=== PATIENT | male | born 1950 | race Caucasian/White ===

== ENCOUNTER 2018-12-03 13:00 | Emergency (ER) | payer MEDICARE ==
[~2018-12-03] VITALS: Ht 172.7 cm; Wt 81.7 kg
[~2018-12-03 13:00] MED LIST: Aspir 8181 MG PO; Azor 10-20 MG1 EACH PO; DIGO.05EL PO; DIGO.125 PO; DIGOXIN; LEVE500; LEVE500 PO; Lanoxin250 MCG PO; METO25ER PO; Simvastatin20 MG PO; St. John's Wor150 MG PO; WARF5 PO; WARF7.5 PO
[2018-12-03 13:23] LABS: BASOPHILS ABSOLUTE AUTO 0.12 K/mm3 (0.00-0.23); BASOPHILS PERCENT AUTO 1 % (0-2); EOSINOPHILS ABSOLUTE AUTO 0.16 K/mm3 (0.00-0.68); EOSINOPHILS PERCENT AUTO 1 % (0-6); Hematocrit 52.1 % (37.0-53.0); Hemoglobin 16.7 g/dL (13.5-17.5); IMMATURE GRAN ABSOLUTE AUTO 0.09 K/mm3 (0.00-0.10); IMMATURE GRAN PERCENT AUTO 1 % (0-1); LYMPHOCYTES ABSOLUTE AUTO 3.74 K/mm3 (0.84-5.20); LYMPHOCYTES PERCENT AUTO 27 % (21-46); MONOCYTES ABSOLUTE AUTO 1.04 K/mm3 (0.16-1.47); MONOCYTES PERCENT AUTO 8 % (4-13); Mean Corpuscular HGB 30.3 pg (26.0-34.0); Mean Corpuscular HGB Conc 32.1 g/dL (31.5-36.5); Mean Corpuscular Volume 95 fL (80-100); Mean Platelet Volume 9.8 fL (9.1-12.4); NEUTROPHILS ABSOLUTE AUTO 8.78 K/mm3 (1.96-9.15); NEUTROPHILS PERCENT AUTO 63 % (41-73); Platelet Count 266 K/mm3 (150-400); RDW Coefficient Variation 12.6 % (11.7-14.2); RDW Standard Deviation 44.1 fL (35.1-46.3); Red Blood Cell Count 5.51 M/mm3 (4.30-5.90); White Blood Cell Count 13.93 K/mm3 (4.00-11.30)
[2018-12-03 13:41] LABS: Source, Urine Clean Catch
[2018-12-03 13:49] LABS: Bilirubin, Urine Neg (Neg); Blood, Urine 2+ (Neg); Glucose Qualitative, Urine Neg (Neg); Ketones, Urine Neg (Neg); Leukocyte Esterase, Urine Neg (Neg); Nitrite, Urine Neg (Neg); Protein, Urine 3+ (Neg); Specific Gravity, Urine 1.025 (1.003-1.022); Urobilinogen, Urine NORM (Normal)
[2018-12-03 13:59] LABS: Alanine Aminotransfer (ALT/SGP 33 U/L (12-78); Albumin, Blood 4.1 g/dL (3.4-5.0); Albumin/Globulin Ratio 0.9 (0.8-1.8); Alk Phos 79 U/L (50-136); Anion Gap 19 mmol/L (6-16); Aspartate Aminotrans (AST/SGOT 33 U/L (12-37); Bilirubin, Total 0.4 mg/dL (0.1-1.0); Blood Urea Nitrogen 22 mg/dL (8-24); Bun/Creatinine Ratio 19.1 (12.0-20.0); CO2, Blood 18 mmol/L (21-32); Calcium, Blood 9.7 mg/dL (8.5-10.1); Chloride, Blood 106 mmol/L (98-108); Creatinine, Blood 1.15 mg/dL (0.60-1.20); Ethanol (Alcohol), Blood, Med <3 mg/dL; Globulin, Blood 4.6 g/dL (2.2-4.0); Glomerular Filtration Rate >60 (60-); Glucose, Blood 141 mg/dL (70-99); Potassium, Blood 3.5 mmol/L (3.5-5.5); Sodium, Blood 143 mmol/L (136-145); Total Protein, Blood 8.7 g/dL (6.4-8.2)
[2018-12-03 14:01] LABS: Troponin I 0.128 ng/mL (0.000-0.040)
[2018-12-03 14:07] LABS: Acetaminophen, Random <2.0 ug/mL (10.0-30.0)
[2018-12-03 14:15] LABS: Digoxin (Lanoxin) 0.25 ug/mL (0.80-2.00)
[2018-12-03 14:16] LABS: Appearance, Urine Clear (Clear); Color, Urine Yellow (P-Yellow)
[2018-12-03 14:27] LABS: International Normalized Ratio 1.7; Prothrombin Time Results 17.2 Sec (9.7-11.5)
[2018-12-03 14:31] LABS: Bacteria Few /hpf; Squamous Epithelial Cells Few /hpf (Few); White Blood Cells, Urine 0-2 /hpf (0-5)
[2018-12-03] MEDS ORDERED: LEVE500 PO (16:09)
== END 2018-12-03 15:50 | disposition home or self-care (01) ==
LOC: ER 13:00
PROVIDERS: Emergency Medicine
DX: R56.9 Unspecified convulsions (principal); I48.91 Unspecified atrial fibrillation; Z79.01 Long term (current) use of anticoagulants; Z79.82 Long term (current) use of aspirin; Z79.899 Other long term (current) drug therapy; I10 Essential (primary) hypertension; Z87.891 Personal history of nicotine dependence
CPT/HCPCS: 36415; 70450; 80053; 80162; 81001; 84484; 85025; 85610; 93005; 93010; 96361; 96374; 99285-25; G0480; J1160; J7030

== ENCOUNTER 2019-08-11 20:24 | Emergency (ER) | payer OTHER ==
[~2019-08-11] VITALS: Ht 172.7 cm; Wt 89.8 kg
[2019-08-11 20:56] LABS: BASOPHILS ABSOLUTE AUTO 0.11 K/mm3 (0.00-0.23); BASOPHILS PERCENT AUTO 1 % (0-2); EOSINOPHILS ABSOLUTE AUTO 0.22 K/mm3 (0.00-0.68); EOSINOPHILS PERCENT AUTO 2 % (0-6); Hematocrit 51.9 % (37.0-53.0); Hemoglobin 17.1 g/dL (13.5-17.5); IMMATURE GRAN ABSOLUTE AUTO 0.05 K/mm3 (0.00-0.10); IMMATURE GRAN PERCENT AUTO 0 % (0-1); LYMPHOCYTES PERCENT AUTO 28 % (21-46); MONOCYTES ABSOLUTE AUTO 1.14 K/mm3 (0.16-1.47); MONOCYTES PERCENT AUTO 10 % (4-13); Mean Corpuscular HGB 30.4 pg (26.0-34.0); Mean Corpuscular HGB Conc 32.9 g/dL (31.5-36.5); Mean Corpuscular Volume 92 fL (80-100); Mean Platelet Volume 10.5 fL (9.1-12.4); NEUTROPHILS ABSOLUTE AUTO 6.93 K/mm3 (1.96-9.15); NEUTROPHILS PERCENT AUTO 60 % (41-73); Platelet Count 254 K/mm3 (150-400); RDW Coefficient Variation 12.4 % (11.7-14.2); RDW Standard Deviation 42.4 fL (35.1-46.3); Red Blood Cell Count 5.62 M/mm3 (4.30-5.90); White Blood Cell Count 11.65 K/mm3 (4.00-11.30)
[2019-08-11 21:11] LABS: Alanine Aminotransfer (ALT/SGP 33 U/L (12-78); Albumin/Globulin Ratio 0.9 (0.8-1.8); Alk Phos 91 U/L (50-136); Anion Gap 20 mmol/L (6-16); Aspartate Aminotrans (AST/SGOT 36 U/L (12-37); Bilirubin, Total 0.6 mg/dL (0.1-1.0); Blood Urea Nitrogen 32 mg/dL (8-24); Bun/Creatinine Ratio 26.4 (12.0-20.0); CO2, Blood 15 mmol/L (21-32); Calcium, Blood 9.2 mg/dL (8.5-10.1); Chloride, Blood 101 mmol/L (98-108); Creatinine, Blood 1.21 mg/dL (0.60-1.20); Globulin, Blood 4.5 g/dL (2.2-4.0); Glomerular Filtration Rate >60 (60-); Glucose, Blood 138 mg/dL (70-99); Potassium, Blood 3.4 mmol/L (3.5-5.5); Sodium, Blood 136 mmol/L (136-145); Total Protein, Blood 8.5 g/dL (6.4-8.2); Troponin I 0.067 ng/mL (0.000-0.040)
[2019-08-11 22:06] LABS: Digoxin (Lanoxin) 0.32 ug/mL (0.80-2.00)
[2019-08-11 22:26] LABS: International Normalized Ratio 1.74; Prothrombin Time Results 17.5 Sec (9.7-11.5)
[2019-08-12] MEDS ORDERED: LEVE500 PO (02:30)
[2019-08-12] MEDS ORDERED: ASCO500 PO (06:37)
[2019-08-12] MEDS ORDERED: GENTEAL TEARS 015 ML OP (06:39)
[2019-08-12] MEDS ORDERED: DILT120 PO (06:39)
[2019-08-12] MEDS ORDERED: GINKGO60 MG PO (06:40)
[2019-08-12] MEDS ORDERED: FISH OIL 1,0001 EAC1 PO (06:40)
[2019-08-12] MEDS ORDERED: ALLERGY EYE DRO10 M1 (06:41)
[2019-08-12] MEDS ORDERED: LISI20 PO (06:42)
[2019-08-12] MEDS ORDERED: METO100ER PO (06:44)
[2019-08-12] MEDS ORDERED: CYAN500 PO (06:46)
[2019-08-12] MEDS ORDERED: Vitamin E100 UNIT PO (06:47)
== END 2019-08-11 23:50 | disposition home or self-care (01) ==
LOC: ER 20:24
PROVIDERS: Emergency Medicine
DX: G40.909 Epilepsy, unspecified, not intractable, without status epilepticus (principal); I48.91 Unspecified atrial fibrillation; R79.89 Other specified abnormal findings of blood chemistry; I11.0 Hypertensive heart disease with heart failure; I50.9 Heart failure, unspecified; Z79.82 Long term (current) use of aspirin; Z79.01 Long term (current) use of anticoagulants; Z79.899 Other long term (current) drug therapy; Z86.73 Personal history of transient ischemic attack (TIA), and cerebral infarction without residual deficits; Z87.891 Personal history of nicotine dependence
CPT/HCPCS: 71045; 80053; 80162; 84484; 85025; 85610; 93005; 93010; 96374; 99285-25; J7030

== ENCOUNTER 2019-08-12 02:18 | Inpatient (IN) | payer OTHER, MEDICARE ==
[~2019-08-12] VITALS: Ht 172.7 cm; Wt 87.4 kg
[2019-08-12] MEDS ORDERED: LEVE500 PO (02:30)
[2019-08-12 03:02] LABS: BASOPHILS ABSOLUTE AUTO 0.05 K/mm3 (0.00-0.23); BASOPHILS PERCENT AUTO 1 % (0-2); EOSINOPHILS PERCENT AUTO 1 % (0-6); Hematocrit 45.2 % (37.0-53.0); Hemoglobin 15.2 g/dL (13.5-17.5); IMMATURE GRAN ABSOLUTE AUTO 0.03 K/mm3 (0.00-0.10); IMMATURE GRAN PERCENT AUTO 0 % (0-1); LYMPHOCYTES PERCENT AUTO 13 % (21-46); MONOCYTES ABSOLUTE AUTO 1.15 K/mm3 (0.16-1.47); MONOCYTES PERCENT AUTO 11 % (4-13); Mean Corpuscular HGB 30.2 pg (26.0-34.0); Mean Corpuscular HGB Conc 33.6 g/dL (31.5-36.5); Mean Corpuscular Volume 90 fL (80-100); Mean Platelet Volume 9.9 fL (9.1-12.4); NEUTROPHILS PERCENT AUTO 75 % (41-73); Platelet Count 221 K/mm3 (150-400); RDW Coefficient Variation 12.4 % (11.7-14.2); RDW Standard Deviation 40.9 fL (35.1-46.3); Red Blood Cell Count 5.03 M/mm3 (4.30-5.90); White Blood Cell Count 10.93 K/mm3 (4.00-11.30)
[2019-08-12 03:21] LABS: Magnesium, Blood 2.3 mg/dL (1.6-2.4); Troponin I 0.162 ng/mL (0.000-0.040)
[2019-08-12 03:22] LABS: Anion Gap 8 mmol/L (6-16); Blood Urea Nitrogen 25 mg/dL (8-24); Bun/Creatinine Ratio 25.6 (12.0-20.0); CO2, Blood 25 mmol/L (21-32); Calcium, Blood 8.5 mg/dL (8.5-10.1); Chloride, Blood 106 mmol/L (98-108); Creatinine, Blood 0.98 mg/dL (0.60-1.20); Glomerular Filtration Rate >60 (60-); Glucose, Blood 115 mg/dL (70-99); Potassium, Blood 3.8 mmol/L (3.5-5.5); Sodium, Blood 139 mmol/L (136-145)
[2019-08-12] MEDS ORDERED: ASCO500 PO (06:37)
[2019-08-12] MEDS ORDERED: DILT120 PO (06:39)
[2019-08-12] MEDS ORDERED: GENTEAL TEARS 015 ML OP (06:39)
[2019-08-12] MEDS ORDERED: FISH OIL 1,0001 EAC1 PO (06:40)
[2019-08-12] MEDS ORDERED: GINKGO60 MG PO (06:40)
[2019-08-12] MEDS ORDERED: ALLERGY EYE DRO10 M1 (06:41)
[2019-08-12] MEDS ORDERED: LISI20 PO (06:42)
[2019-08-12] MEDS ORDERED: METO100ER PO (06:44)
[2019-08-12] MEDS ORDERED: CYAN500 PO (06:46)
[2019-08-12] MEDS ORDERED: Vitamin E100 UNIT PO (06:47)
--- NOTE | 2019-08-12 06:51 | NUR ---
0600 REPORT RECEIVED FROM [facility] FROM ER; PT ALERT AND ORIENTED X 4; SEIZURE PADS APPLIED TO BED FOR SAFETY; TELEMETRY REFLECTS A/FIB WITH HEART RATE 90; DENIES CHEST, SOB OR NAUSEA, CALL LIGHT AT SIDE WITH BED LOW POSITION; SCDS APPLIED.
--- NOTE | 2019-08-12 07:30 | NUR ---
ASSUMED CARE OF PT. IN NO ACUTE DISTRESS AT THIS TIME. WILL CONTINUE TO MONITOR. CALL LIGHT AND POSSESSIONS IN REACH
--- NOTE | 2019-08-12 07:33 | NUR ---
ASSUMED CARE: PT RESTING QUIETLY. SEIZURE PADS IN PLACE. HR CURRENTLY AFIB IN 90S. NO FURTHER NEEDS OR CONCERNS AT THIS TIME.
[2019-08-12 10:25] LABS: International Normalized Ratio 1.45; Prothrombin Time Results 14.9 Sec (9.7-11.5)
--- NOTE | 2019-08-12 11:48 | NUR ---
DR AVALOS AWARE THAT PT HAD A 13 BEAT RUN OF VTACH THIS AM BUT WAS ASYMPTOMATIC. ALSO HAVING ELEVATED TROPONINS. ORDER FOR CARDIOLOGY CONSULT, DR ORTIZ AWARE
--- NOTE | 2019-08-12 12:10 | NUR ---
DR ORTIZ CAME TO SEE PT, AWARE THAT HE ATE LUNCH. DR STATES TO HOLD HEPARIN FOR NOW, DR AWARE.
--- NOTE | 2019-08-12 15:30 | NUR ---
PT TAKEN TO CAREER AND GUIDANCE COUNSELOR AT THIS TIME. ESCORTED VIA BED BY HEART CENTER STAFF.
--- NOTE | 2019-08-12 16:12 | NUR ---
Echocardiogram completed.
--- NOTE | 2019-08-12 17:10 | NUR ---
PT RETURNED FROM APARTMENT MAINTENANCE WITH RIGHT TR BAND IN PLACE, NO SIGNS OF BLEEDING OR HEMATOMA. ARM BOARD WELL. VSS AT THIS TIME
--- NOTE | 2019-08-12 18:26 | NUR ---
[facility] HERE TO COLLECT PT. TRANSPORTED VIA GURNEY. TR BAND IN PLACE STILL INFLATED. CALL TO TRISTIN AT [facility] FOR REPORT. PT STATES HE HAS BEEN CONTACTING FAMILY AND FRIENDS TO UPDATE THEM. NO FURTHER NEEDS OR CONCERNS
== END 2019-08-12 19:38 | disposition short-term general hospital (02) | DRG 281 ==
LOC: ER 02:18 → PCU 02:19
PROVIDERS: Emergency Medicine; ADMIT Hospitalist
PROC: 4A023N7 Measurement of Cardiac Sampling and Pressure, Left Heart, Percutaneous Approach (ICD-10-PCS; principal; 2019-08-12)
PROC: B211YZZ Fluoroscopy of Multiple Coronary Arteries using Other Contrast (ICD-10-PCS; 2019-08-12)
DX: I21.4 Non-ST elevation (NSTEMI) myocardial infarction (principal); I48.20 Chronic atrial fibrillation, unspecified; I50.20 Unspecified systolic (congestive) heart failure; I25.10 Atherosclerotic heart disease of native coronary artery without angina pectoris; I11.0 Hypertensive heart disease with heart failure; R56.9 Unspecified convulsions; Z79.01 Long term (current) use of anticoagulants
CPT/HCPCS: 36415; 80048; 83735; 84484; 85025; 85347; 85610; 85730; 93005; 93010; 93306; 93571; 96361; 96374; 99152; 99153; 99285-25; C1769; C1887; C1894; G0378; J1644; J2250; J3010; J7030; J7040; Q9967

== ENCOUNTER 2019-10-04 15:40 | Emergency (ER) | payer OTHER ==
[~2019-10-04] VITALS: Ht 172.7 cm; Wt 83.9 kg
[~2019-10-04 15:40] MED LIST changes: +CYAN500 PO; +GENTEAL TEARS 015 ML OP; +METO100ER PO; -WARF5 PO
[2019-10-04] MEDS ORDERED: ACET325 PO (16:06)
[2019-10-04] MEDS ORDERED: Aspir 8181 MG PO (16:07)
[2019-10-04] MEDS ORDERED: Amiodarone HCl200 MG PO (16:07)
[2019-10-04] MEDS ORDERED: C Complex1000 MG PO (16:07)
[2019-10-04] MEDS ORDERED: DOCU100 PO (16:08)
[2019-10-04] MEDS ORDERED: DILT120ERA PO (16:08)
[2019-10-04] MEDS ORDERED: WARF2.5 (16:09)
[2019-10-04] MEDS ORDERED: WARF3 PO (16:09)
[2019-10-04] MEDS ORDERED: METO50ER PO (16:10)
[2019-10-04] MEDS ORDERED: LANOXIN125 MCG PO (16:10)
[2019-10-04] MEDS ORDERED: LEVE500 PO ×2 (16:10→17:16)
[2019-10-04] MEDS ORDERED: FISH OIL 500 M1 EAC3 PO (16:10)
[2019-10-04] MEDS ORDERED: BISA10S PR (16:10)
[2019-10-04] MEDS ORDERED: MILK OF MA400 MG/5 M PO (16:11)
[2019-10-04] MEDS ORDERED: Refresh Eye Dr1 EACH OP (16:11)
[2019-10-04] MEDS ORDERED: TOCO1000 PO (16:11)
[2019-10-04] MEDS ORDERED: ZADITOR5 ML (16:12)
[2019-10-04 17:00] LABS: International Normalized Ratio 3.15; Prothrombin Time Results 31.6 Sec (9.7-11.5)
[2019-10-04] MEDS ORDERED: WARF5 PO (17:15)
[2019-10-04] MEDS ORDERED: METO100ER PO (17:15)
[2019-10-04] MEDS ORDERED: ASCO500 PO (17:16)
[2019-10-04] MEDS ORDERED: DILT120 PO (17:16)
[2019-10-04] MEDS ORDERED: ALLERGY EYE DRO10 M1 BOTHEYES (17:17)
[2019-10-04] MEDS ORDERED: FISH OIL 1,0001 EAC1 PO (17:17)
[2019-10-04] MEDS ORDERED: LISI20 PO (17:17)
[2019-10-04] MEDS ORDERED: GINKGO60 MG PO (17:17)
[2019-10-04] MEDS ORDERED: VITAMIN E100 UNI1 PO (17:19)
[2019-10-04] MEDS ORDERED: B Complex-Foli1 EACH PO (17:19)
[2019-10-04] MEDS ORDERED: MAGNESIUM OXID500 MG PO (17:20)
[2019-10-04] MEDS ORDERED: MELATONIN5 M1 PO (17:21)
== END 2019-10-04 17:24 | disposition home or self-care (01) ==
LOC: ER 15:40
PROVIDERS: Emergency Medicine
DX: I48.20 Chronic atrial fibrillation, unspecified (principal); G40.909 Epilepsy, unspecified, not intractable, without status epilepticus; I10 Essential (primary) hypertension; Z86.73 Personal history of transient ischemic attack (TIA), and cerebral infarction without residual deficits; I25.10 Atherosclerotic heart disease of native coronary artery without angina pectoris; Z79.01 Long term (current) use of anticoagulants
CPT/HCPCS: 85610; 93005; 93010; 99284-25

== ENCOUNTER 2020-11-19 12:18 | Inpatient (IN) | payer OTHER, MEDICARE ==
[~2020-11-19] VITALS: Ht 172.7 cm; Wt 83.9 kg
[~2020-11-19 12:18] MED LIST changes: +ACET325 PO; +ASCO500 PO; +Amiodarone HCl200 MG PO; +B Complex-Foli1 EACH PO; +BISA10S PR; +C Complex1000 MG PO; +DILT120ERA PO; +DOCU100 PO; +FISH OIL 1,0001 EAC1 PO; +FISH OIL 500 M1 EAC3 PO; +GINKGO60 MG PO; +LANOXIN125 MCG PO; +LISI20 PO; +MAGNESIUM OXID500 MG PO; +MELATONIN5 M1 PO; +METO50ER PO; +MILK OF MA400 MG/5 M PO; +Refresh Eye Dr1 EACH OP; +TOCO1000 PO; +WARF2.5; +WARF3 PO; +ZADITOR5 ML
[2020-11-19 12:42] LABS: BASOPHILS ABSOLUTE AUTO 0.08 K/mm3 (0.00-0.23); BASOPHILS PERCENT AUTO 1 % (0-2); EOSINOPHILS ABSOLUTE AUTO 0.18 K/mm3 (0.00-0.68); EOSINOPHILS PERCENT AUTO 2 % (0-6); Hematocrit 45.7 % (37.0-53.0); Hemoglobin 15.3 g/dL (13.5-17.5); IMMATURE GRAN ABSOLUTE AUTO 0.03 K/mm3 (0.00-0.10); IMMATURE GRAN PERCENT AUTO 0 % (0-1); LYMPHOCYTES ABSOLUTE AUTO 1.72 K/mm3 (0.84-5.20); LYMPHOCYTES PERCENT AUTO 17 % (21-46); MONOCYTES ABSOLUTE AUTO 0.93 K/mm3 (0.16-1.47); MONOCYTES PERCENT AUTO 9 % (4-13); Mean Corpuscular HGB Conc 33.5 g/dL (31.5-36.5); Mean Corpuscular Volume 93 fL (80-100); Mean Platelet Volume 10.8 fL (9.1-12.4); NEUTROPHILS ABSOLUTE AUTO 7.45 K/mm3 (1.96-9.15); NEUTROPHILS PERCENT AUTO 72 % (41-73); Platelet Count 205 K/mm3 (150-400); RDW Coefficient Variation 12.9 % (11.7-14.2); RDW Standard Deviation 43.4 fL (35.1-46.3); Red Blood Cell Count 4.93 M/mm3 (4.30-5.90); White Blood Cell Count 10.39 K/mm3 (4.00-11.30)
[2020-11-19 12:45] LABS: Calcium, Ionized (POC) 1.16 mmol/L (1.10-1.46); Chloride (POC) 103 mmol/L (98-108); Creatinine (POC) 0.9 mg/dL (0.8-1.3); Glucose (ISTAT POC) 159 mg/dL (70-99); Hemoglobin (POC) 15.6 g/dL (13.5-17.5); Potassium (POC) 4.5 mmol/L (3.5-5.5); Sodium (POC) 140 mmol/L (135-148); Total CO2 (POC) 28 mmol/L (21-32)
[2020-11-19 13:23] LABS: Alanine Aminotransfer (ALT/SGP 28 U/L (12-78); Albumin, Blood 3.5 g/dL (3.4-5.0); Albumin/Globulin Ratio 0.9 (0.8-1.8); Alk Phos 86 U/L (50-136); Anion Gap 5 mmol/L (6-16); Aspartate Aminotrans (AST/SGOT 30 U/L (12-37); Bilirubin, Total 0.7 mg/dL (0.1-1.0); Blood Urea Nitrogen 23 mg/dL (8-24); Bun/Creatinine Ratio 26.4 (12.0-20.0); CO2, Blood 27 mmol/L (21-32); Calcium, Blood 9.1 mg/dL (8.5-10.1); Chloride, Blood 108 mmol/L (98-108); Creatinine, Blood 0.87 mg/dL (0.60-1.20); Digoxin (Lanoxin) 0.62 ug/mL (0.80-2.00); Globulin, Blood 4.1 g/dL (2.2-4.0); Glomerular Filtration Rate >60 (60-); Glucose, Blood 152 mg/dL (70-99); Potassium, Blood 4.4 mmol/L (3.5-5.5); Sodium, Blood 140 mmol/L (136-145); Total Protein, Blood 7.6 g/dL (6.4-8.2)
[2020-11-19] MEDS ORDERED: ALBU90OI INH (13:49)
[2020-11-19] MEDS ORDERED: LANOXIN250 MCG PO (13:51)
[2020-11-19] MEDS ORDERED: ATHLETE'S FOO35.4 GM TOP (13:51)
[2020-11-19] MEDS ORDERED: DILT180 PO (13:52)
[2020-11-19] MEDS ORDERED: LEVE500 PO (13:53)
[2020-11-19] MEDS ORDERED: METO100ER PO (13:53)
[2020-11-19] MEDS ORDERED: ZADITOR5 M1 BOTHEYES (13:53)
[2020-11-19] MEDS ORDERED: SILDENAFIL CITR50 MG PO (13:55)
[2020-11-19] MEDS ORDERED: VITAMIN E100 UNI1 PO (13:55)
[2020-11-19] MEDS ORDERED: WARF5 PO (13:56)
[2020-11-19 16:46] LABS: PCO2 Arterial 43.6 mmHg (35-45); PO2 Arterial 252 mmHg (80-100); pH Blood Arterial 7.37 (7.35-7.45)
--- NOTE | 2020-11-19 16:46 | NUR ---
Echocardiogram completed.
[2020-11-19 17:06] LABS: Source, Urine Catheter
[2020-11-19 17:12] LABS: Bilirubin, Urine Neg (Neg); Blood, Urine 4+ (Neg); Glucose Qualitative, Urine Neg (Neg); Ketones, Urine Neg (Neg); Leukocyte Esterase, Urine Neg (Neg); Nitrite, Urine Neg (Neg); Protein, Urine 3+ (Neg); Specific Gravity, Urine 1.005 (1.003-1.022); Urobilinogen, Urine NORM (Normal)
[2020-11-19 17:26] LABS: Appearance, Urine Hazy (Clear); Color, Urine Pale Yellow (P-Yellow)
--- NOTE | 2020-11-19 17:27 | NUR ---
SUMMARY: PT ARRIVES FROM BLENDING SUPERVISOR @ 1528. RIGHT GROIN SITE FRESH, TEMPORARY PACER LINE PRESENT. PT OPENS EYES FOR NAME. REPORT FROM ABUNDIO AND JAYESH FROM BLENDING SUPERVISOR. PULSES PALPABLE ON RIGHT FOOT. LAB IN FOR BLOOD DRAW, DAVIDE MONTELONGO IN FOR ECHO. ATTEMPTS TO FILL OUT ADMISSION INFORMATION, PT NOT ANSWERING QUESTIONS, PT NOT RESPONDING TO VOICE, TOUCH. CARDIAC NURSE SPECIALIST NOTIFIED. NARCAN AND ROMAZICON GIVEN FOR UNRESPONSIVENESS. PT'S GROIN CHECKED AND NOTED TO BE OOZING SIGNIFICANTLY. PRESSURE HELD. PT BEGINS TO AROUSE. COMPLAINS THAT HE CANNOT BREATHE. ATTEMPT TO CALL , HE IS IN PROCEDURE. HOSPITALIST CALLED. PT CONTINUES IN AND OUT OF ALERTNESS, PRESSURE CONTINUED TO BE HELD. DR. ROBLES AND DR. ROBLES HERE, THEY ASSESS AND ORDER LASIX 40MG GIVEN AND MCBRIDE CATHETER PLACED. RESTRAINTS PLACED PT TRYING TO MOVE RIGHT LEG AND PUSH STAFF OFF TRYING TO AWAKEN. GROIN PRESSURE CONTINUES SIGHT IS FULLY COVERED IN RED. PULSES GOOD. ABG RESULTS GOOD. DR. ROBLES SAYS NO ADDITIONAL OXYGEN NEEDED FROM THE NRB @ 10L. PT STARTING TO MAKE MORE SENSE. 1700 THE COMPLETE THEIR CONSULT. NO FURTHER ORDERS. UPDATE GIVEN TO ARISTEO IN BLENDING SUPERVISOR TO COMMUNICATE TO . PT DENIES ANY FURTHER SHORTNESS OF BREATH, NEARLY 1000CC OUT WITH MCBRIDE.
[2020-11-19 17:29] LABS: Amorphous Mod (0-Heavy); Bacteria Mod /hpf; Oval Fat Bodies Rare /lpf; Squamous Epithelial Cells Not Seen /hpf (Few); Transitional Epithelial Cells Few /hpf (0-Rare); White Blood Cells, Urine 0-2 /hpf (0-5)
--- NOTE | 2020-11-19 19:00 | NUR ---
ASSUMED CARE OF PT, BEDSIDE REPORT RECEIVED. REVIEWED RIGHT GROIN SITE WITH OFFGOING RN AND FEMSTOP PRESSURE DECREASED TO 80 PER ORDERS, WILL CONT TO MONITOR SITE FOR SIGNS OF BLEEDING/HEMATOMA FORMATION. PT IS PLEASANTLY CONFUSED AT THIS TIME, IS ABLE TO STATE THAT HE IS IN [facility] HOWEVER VERBALIZES THAT HE SEES A DAVID OUTSIDE OF HIS ROOM WINDOW, THERE IS NO DAVID OBSERVED IN COURTYARD BY THIS RN, HE ALSO BEGINS CUSSING STATING "SHIT, WHERE IS IT" AND THROWING COVERS AROUND WITH HIS RIGHT HAND, WHEN ASKED WHAT HE IS LOOKING FOR HE STATES THAT HE CAN'T FIND HIS CELL PHONE, CELL PHONE IS NOTED HELD IN LEFT HAND. HE ATTEMPTS TO SIT UP FREQUENTLY WELL MOVE RIGHT LEG OUT OF BED AND STATES THAT HE NEEDS TO GET UP AND URINATE, REMINDED PT ABOUT MCBRIDE CATHETER AND HE CONTINUES TO STATE THAT HE IS GOING TO "PEE THE BED" HEART RATE NOTED AFIB ON MONITOR, RATE 80S AT THIS TIME, OCCASIONAL PACED BEAT IS NOTED, TRANSVENOUS PACER REVIEWED WITH OFFGOING RN SETTINGS ARE RATE 40, OUTPUT 4.0, SENSE 3.0, DRESSING IS REVIEWED WITH OFFGOING RN, UNABLE TO READ PACEMAKER MEASUREMENTS SECONDARY TO FEMSTOP IN PLACE OVER INSERTION SITE. SATS ARE MAINTAINING WITH OXYGEN OFF PT AND COILED IN BEDDING, JIM HILTON, PT DENIES SOB/DYSPNEA, LUNGS WITH EXP WHEEZE MID RIGHT AND DIM BASES BILAT, AUDIBLE EXPIRATORY WHEEZE. PT STATES THAT HE DOES HAVE SOME MILD CHEST PAIN AND STATES THAT IT HAS BEEN PRESENT SINCE HIS BYPASS SURGERY 3 YEARS AGO. STATES THAT THIS PAIN IS LESS THAN HIS NORMAL BASELINE BY "QUITE A BIT" HOWEVER DOES NOT PROVIDE NUMERIC PAIN SCORE.
[2020-11-19 19:22] LABS: U Amphetamine Screen Not Detected; U Barbituate Screen Not Detected; U Benzodiazapine Screen Not Detected; U Buprenorphine Screen Not Detected; U Cannabinoids Screen Not Detected; U Cocaine Screen Not Detected; U Methadone Screen Not Detected; U Methamphetamine Screen Not Detected; U Opiates Screen Not Detected; U Oxycodone Screen Not Detected; U Phencyclidine Screen Not Detected; U Propoxyphene Screen Not Detected
--- NOTE | 2020-11-20 05:49 | NUR ---
PT WAS AGITATED AND RESTLESS AT THE BEGINNING OF THIS SHIFT, NOTED TO KICK AGAINST RIGHT ANKLE RESTRAINT AND ATTEMPT TO CLIMB OUT OF BED STATING HE NEEDS TO USE THE URINAL AFTER IT WAS EXPLAINED TO THE PT THAT HE HAS A CATHETER MULTIPLE TIMES, HE WOULD REQUEST THIS RN SHOW HIM THE MCBRIDE DRAINAGE BAG IN ORDER TO PROVE THAT CATHETER WAS PRESENT. HE VERBALIZED VISUAL HALLUCINATIONS MULTIPLE TIMES EARLY IN THIS SHIFT. HE WAS DIFFICULT TO REDIRECT AND WAS NONCOMPLIANT WITH RLE ACTIVITY RESTRICTIONS. DISCUSSED WITH HOSPITALIST WELL NEED FOR ROMAZICON AND NARCAN ON DAY SHIFT, ORDERS FOR PRECEDEX, INITIATED AT 0.2 MCG/KG/HR AND TITRATED UP EVERY 30 MINUTES TO MAX OF 0.6 MCG/KG/HR, THIS HAS SINCE BEEN TITRATED DOWN TO 0.3 MCG/KG/HR AND PT IS EASILY AROUSABLE TO VERBAL STIMULI AND REDIRECTABLE AT THIS TIME. TRANSVENOUS PACEMAKER REMAINS IN PLACE WITHOUT CHANGES TO SETTINGS, RARE PACED BEATS AT MIDNOC ASSESSMENT AND CONTINUE TO DECREASE IN FREQUENCY, PRESSURES MAINTAINED THROUGHOUT NOC. RIGHT GROIN SITE CONTINUES STABLE, PRESSURE RELEASED FROM FEMSTOP PER ORDERS AND COMPLETELY DEFLATED AT 2230, SMALL AMOUNT OF BRUISING IS VISIBLE BUT SITE REMAINS SOFT, NO ACTIVE BLEEDING. SPO2 PROBE TO TOES OF RIGHT FEET THROUGHOUT NOC WITH GOOD WAVEFORM, PULSES FULL.
[2020-11-20 06:45] LABS: BASOPHILS ABSOLUTE AUTO 0.06 K/mm3 (0.00-0.23); BASOPHILS PERCENT AUTO 1 % (0-2); EOSINOPHILS ABSOLUTE AUTO 0.18 K/mm3 (0.00-0.68); EOSINOPHILS PERCENT AUTO 2 % (0-6); Hematocrit 39.1 % (37.0-53.0); Hemoglobin 12.9 g/dL (13.5-17.5); IMMATURE GRAN ABSOLUTE AUTO 0.03 K/mm3 (0.00-0.10); IMMATURE GRAN PERCENT AUTO 0 % (0-1); LYMPHOCYTES ABSOLUTE AUTO 1.15 K/mm3 (0.84-5.20); LYMPHOCYTES PERCENT AUTO 13 % (21-46); MONOCYTES ABSOLUTE AUTO 0.98 K/mm3 (0.16-1.47); MONOCYTES PERCENT AUTO 11 % (4-13); Mean Corpuscular HGB 30.5 pg (26.0-34.0); Mean Corpuscular Volume 92 fL (80-100); Mean Platelet Volume 10.5 fL (9.1-12.4); NEUTROPHILS ABSOLUTE AUTO 6.78 K/mm3 (1.96-9.15); NEUTROPHILS PERCENT AUTO 74 % (41-73); Platelet Count 159 K/mm3 (150-400); RDW Coefficient Variation 12.7 % (11.7-14.2); RDW Standard Deviation 43.6 fL (35.1-46.3); Red Blood Cell Count 4.23 M/mm3 (4.30-5.90); White Blood Cell Count 9.18 K/mm3 (4.00-11.30)
[2020-11-20 07:06] LABS: Anion Gap 3 mmol/L (6-16); Blood Urea Nitrogen 22 mg/dL (8-24); CHOL/HDL RATIO 3.4; CO2, Blood 31 mmol/L (21-32); Calcium, Blood 8.7 mg/dL (8.5-10.1); Chloride, Blood 107 mmol/L (98-108); Cholesterol 124 mg/dL (50-200); Glomerular Filtration Rate >60 (60-); Glucose, Blood 97 mg/dL (70-99); HDL Cholesterol 37 mg/dL (>39); LDL/HDL RATIO 1.7; Low Density Lipoprotein Chol 62 mg/dL (0-110); Potassium, Blood 3.8 mmol/L (3.5-5.5); Sodium, Blood 141 mmol/L (136-145); Triglycerides 124 mg/dL (30-160); Very Low Density Lipoprot Chol 24 mg/dL (6-32)
--- NOTE | 2020-11-20 07:30 | NUR ---
ASSUMED CARE BEDSIDE REPORT RECIEVED. PT IS INITIALLY RESTING QUIETLY. PT AWAKENS TO VERBAL STIMULI. PT IS ALERT AND ORIENTED WITH PERIODS OF CONFUSION/FORGETFULNESS. PT FOLLOWS SIMPLE COMMANDS. PT DENIES PAIN AT THIS TIME. VITAL SIGNS STABLE. PT ON 3L O2 NC. TRANSVENOUS PACER IN PLACE TO RIGHT FEMORAL SITE. INSERTED AT 75 CM. SET AT 40 BPM, 4.0 MA. PT HR 70-80'S, AFIB. MCBRIDE IN PLACE WITH ORANGE URINE OUTPUT NOTED. RESTRAINT TO RIGHT ANKLE IN PLACE. WILL CONTINUE TO MONITOR.
--- NOTE | 2020-11-20 08:05 | NUR ---
TV PACER REMOVAL DR SALAS AT BEDSIDE TO REMOVE TRANSVENOUS PACER. PACER TO RIGHT FEMORAL SITE SET AT 40 BPM, 4.0 MA. SITE WITH OOZING AND SMALL BRUISE NOTED PRIOR TO REMOVAL. DR SALAS REMOVED PACER AND SHEATH AT 0755. MANUAL PRESSURE HELD 10 FOR 10 MINUTES. OPSITE DRESSING PLACED. WILL CONTINUE TO MONITOR.
--- NOTE | 2020-11-20 15:13 | NUR ---
BLOODY NOSE PT WITH BLOODY NOSE SINCE 1300. PT INSTRUCTED TO MINIMIZE TALKING AND TO KEEP PLUG IN NOSE. PT TALKING ON THE PHONE AND TO STAFF CONTINUALLY AND REMOVES TISSUE PLUGS IN NOSE. PT REFUSES THIS RN AND SHOE REPAIRER TO CHANGE GOWN WITH BLOOD ON IT. WILL CONTINUE TO MONITOR.
--- NOTE | 2020-11-20 16:43 | NUR ---
SHIFT SUMMARY NO ACUTE CHANGES THIS SHIFT. PT HAS REMAINED STABLE S/P TRANSVENOUS PACER REMOVAL THIS AM. RIGHT FEMORAL SITE REMAINS STABLE WITH DRESSING C/D/I. BRUISING TO SITE UNCHANGED SINCE THIS AM. VITAL SIGNS STABLE. HR REMAINS AFIB 80-100'S, BP STABLE. PT ON ROOM AIR. PT WITH NOSEBLEED SLOWLY IMPROVING. IV'S SALINE LOCKED. PT UP TO CHAIR FOR LUNCH WITH 1 PERSON ASSIST. PT TOLERATING PO FOOD AND FLUIDS WELL. MCBRIDE REMAINS IN PLACE WITH DARK YELLOW URINE OUTPUT NOTED. PT REMAINS ALERT AND ORIENTED, BUT SPEECH IS NONSENSICAL AT TIMES. WILL CONTINUE TO MONITOR AND REPORT OFF TO ONCOMING RN.
--- NOTE | 2020-11-20 18:35 | NUR ---
Mr. Winchester was talkative and pleasant with periods of confusion. He chatted happily with me about his service and family. He reports hope for recovery and denied concerns. He allowed me to pray for healing. He lost his 10 years ago to brain tumor. He admits he still misses her. He has 2 adult children--a son and dtr. I will remain available.
--- NOTE | 2020-11-20 19:41 | NUR ---
ASSUMED CARE OF PT, BEDSIDE REPORT RECEIVED. RIGHT GROIN ACCESS SITE REVIEWED WITH OFFGOING RN, NO HEMATOMA, SMALL AMOUNT OF BRUISING REMAINS WITHIN LINES OF DEMARKATION FROM PREVIOUS SHIFT. DRESSING IS CDI. PT IS ALERT AND ORIENTED AND MARKEDLY CONVERSATIONAL. EPISTAXIS IS ONGOING PROBLEM TODAY AND PT CONTINUES WITH RAPID SPEACH AND MOVEMENT, NASAL CLAMP WAS PLACED BY PT PRIOR TO RNS ARRIVING AT BEDSIDE FOR REPORT, CLAMP WAS PLACED TO SOFT TISSUE OF NARES, PT INSTRUCTED THAT CLAMP IS PROPERLY APPLIED TO BRIDGE OF NOSE RATHER THAN SOFT TISSUE, UNDERSTANDING IS VERBALIZED AT THIS TIME, WILL CONT TO MONITOR BLEEDING. AFIB ON MONITOR, RATE IS NOTED 100-150 THROUGHOUT ASSESSMENT PRESSURES MAINTAINING, SKIN REMAINS PWD, BRISK CAP REFILL, NO EDEMA IS NOTED AT THIS TIME. SATS ARE MAINTAINING ON ROOM AIR WITHOUT VISIBLE INCREASED WORK OF BREATHING, PT SPEAKING IN LENGTHY SENTENCES, DENIES SOB/DYSPNEA AT THIS TIME. CALL PLACED TO CARDIOLOGY REGARDING RATE CONTROL, AWAITING RETURN CALL AT THIS TIME.
[2020-11-21 06:49] LABS: BASOPHILS ABSOLUTE AUTO 0.06 K/mm3 (0.00-0.23); BASOPHILS PERCENT AUTO 1 % (0-2); EOSINOPHILS ABSOLUTE AUTO 0.15 K/mm3 (0.00-0.68); EOSINOPHILS PERCENT AUTO 2 % (0-6); Hematocrit 40.5 % (37.0-53.0); Hemoglobin 13.4 g/dL (13.5-17.5); IMMATURE GRAN ABSOLUTE AUTO 0.02 K/mm3 (0.00-0.10); IMMATURE GRAN PERCENT AUTO 0 % (0-1); LYMPHOCYTES ABSOLUTE AUTO 1.23 K/mm3 (0.84-5.20); LYMPHOCYTES PERCENT AUTO 13 % (21-46); MONOCYTES ABSOLUTE AUTO 1.11 K/mm3 (0.16-1.47); MONOCYTES PERCENT AUTO 12 % (4-13); Mean Corpuscular HGB 30.5 pg (26.0-34.0); Mean Corpuscular HGB Conc 33.1 g/dL (31.5-36.5); Mean Corpuscular Volume 92 fL (80-100); Mean Platelet Volume 10.4 fL (9.1-12.4); NEUTROPHILS PERCENT AUTO 73 % (41-73); Platelet Count 169 K/mm3 (150-400); RDW Coefficient Variation 12.8 % (11.7-14.2); RDW Standard Deviation 43.4 fL (35.1-46.3); White Blood Cell Count 9.37 K/mm3 (4.00-11.30)
[2020-11-21 07:01] LABS: Anion Gap 4 mmol/L (6-16); Blood Urea Nitrogen 22 mg/dL (8-24); Bun/Creatinine Ratio 23.7 (12.0-20.0); CO2, Blood 29 mmol/L (21-32); Calcium, Blood 8.9 mg/dL (8.5-10.1); Chloride, Blood 107 mmol/L (98-108); Creatinine, Blood 0.93 mg/dL (0.60-1.20); Glomerular Filtration Rate >60 (60-); Glucose, Blood 96 mg/dL (70-99); Sodium, Blood 140 mmol/L (136-145)
--- NOTE | 2020-11-21 07:19 | NUR ---
PT RESTS QUIETLY THROUGHOUT SHIFT. RATE IMPROVED HOWEVER REMAINS 100-110S THIS AM, REVIEWED WITH DR DANIEL AT 0630 THIS AM, WILL ORDER LOW DOSE BETA CHELITA. RIGHT GROIN ACCESS SITE CONTINUES STABLE. PT REMAINS MARKEDLY CONVERSATIONAL THROUGHOUT NOC. NO FUTHER EPISTAXIS AFTER 2100 THIS SHIFT. OTHERWISE NO ACUTE CHANGES.
--- NOTE | 2020-11-21 07:47 | NUR ---
Assumed care of pt at 0700. Bedside report received from Demi STAUFFER. Pt A&O x 4. Answers questions. Follows commands. Verbalizes needs. Pleasant and cooperative with care. Talkative. Pt on room air. Atrial fibrillation per monitor. Rate 115-125. Pt brushed own teeth. Pt continues to talk on phone and nose bleed restarted at subtle trickle that pt did not notice, staff noticed and instructed pt to minimize talking.
--- NOTE | 2020-11-21 10:00 | NUR ---
Pt had nose bleed that started as a mild trickle and progressed to become a continuous stream of blood. AM meds held until clarification received from provider due to bleeding. Dr Coello at bedside placed 5.5 cm rhino rocket that helped with bleeding for approx 10 minutes and then pt started to bleed around it. Call placed to Dr Ang to notify on situation. Provider at bedside, stated he will DC xarelto, brilinta, and ASA. Plan to start plavix when nosebleed resolves.
--- NOTE | 2020-11-21 10:30 | NUR ---
Dr Harper from emergency department in to see patient regarding persistent nosebleed despite rhinorocket. Provider removed previous rhinorocket, inserted medication powder per nare to help with bleeing and placed another rhino rocket.
--- NOTE | 2020-11-21 11:42 | NUR ---
Call placed to Dr Coello to discuss pt's pain from rhino rocket. Pt is hypertensive and HR is elevated, Dr Ang aware, plan to start amio drip if there is no improvement noted in 30 minutes. Plan to give pt 1 mg IV dilaudid.
[2020-11-21 13:03] LABS: Hematocrit 44.3 % (37.0-53.0); Hemoglobin 14.6 g/dL (13.5-17.5)
--- NOTE | 2020-11-21 17:46 | NUR ---
SUMMARY Rhino Rocket placed by ED provider, as well as hemostatic powder, successful in resolving nose bleed. Pt has received one dose of plavix this afternoon. No rebleed noted. Dr Quiroz has been in to see patient. Plan to maintain Rhino Rocket in place until Thursday. Pt is on amiodarone drip due to uncontrolled HR. Drip effective at controlling HR. Update given to Dr Ang. BP also improved. Pt's friend, Batsheva, visited today and this helped pt manage his anxiety. Hoffman catheter in place, draining clear, yellow urine. Pt on room air. SpO2 90% or greater. Pt had cough while nose was bleeding but this has resolved. Bed in lowest position. Call light in reach. Will continue to closely monitor until care handoff and bedside report with oncoming RN.
--- NOTE | 2020-11-21 18:35 | NUR ---
Amiodarone rate decreased to 0.5 mg/min. Pt transferred to room PCU 7. Groin site assessed with INDUSTRIAL CONTROLS TECHNICIAN, Yun, during bedside report. Medications, belongings, and chart transferred with patient.
--- NOTE | 2020-11-21 18:44 | NUR ---
TRANSFER FROM ICU PT ARRIVED FROM ICU AT APPROXIMATELY 1830. PT WAS TRANSFERRED FROM BED TO BED USING SLIDER SHEET. PT DENIES PAIN AT THIS TIME BUT REPORTS SOME ANXIETY IN REGARDS TO HIS HEALTH STATUS. PT WAS CALMED WITH DISTRACTION AND LIGHTS OFF AND BREATHING EXERCISES. PT HAS RHINO ROCKET IN PLACE FOR INTENSE NOSE BLEED EARILER TODAY, AMIODARONE DRIP IS RUNNING AT 16.7ML/HR. PT IS IN AFIB HR 90-100. PT HAS FEMORAL ANGIO SITE COMPLETED TWO DAYS AGO WITH SIGNIFICANT BRUISING BUT IT IS UNCHANGED FROM THE START OF SHIFT ACCORDING TO Marlen BRANDT PRODUCTION MATERIAL COORDINATOR. PT IS ALERT AND ORIENTED BUT IS VERY DROWSY. PT ON RA, VS STABLE AT THIS TIME. PT IS RESTING IN BED AT THIS TIME. PT REQUESTED I PHONE HIS SON TO INFORM HIM OF HIS MOVE FROM ICU AND GIVE HIM AND UPDATE.
--- NOTE | 2020-11-21 19:20 | NUR ---
ASSUMED CARE RECIEVED REPORT FROM [facility]; PT A&O X 4; ELEVATED BP NOTED; DENIES CHEST PAIN; O2 SATS >93 ON RA; BRUISING NOTED IN GROIN FROM FEMORAL ACCESS, BUT IS NOT CHANGED FROM PREVIOUS SHIFT; MCBRIDE PATENT & DRAINING; BELONGINGS AND CALL LIGHT IN REACH; BED IN LOWEST POSITION.
--- NOTE | 2020-11-22 02:20 | NUR ---
UPDATE PT C/O NOT BEING ABLE TO SLEEP; CALLS FREQUENTLY, MOANS AND CALLS OUT; SEEMS ANXIOUS AND STATES HE WAS TO HAVE A [facility] APPOINTMENT FOR ANXIETY; UP TO RECLINER, THEN BACK TO BED AND THEN UP TO DANGLE AT BEDSIDE FREQUENTLY; NOTIFIED ; NEW ORDER GIVEN FOR MELATONIN AND 1X ATIVAN; REFER TO EMAR.
[2020-11-22 06:06] LABS: BASOPHILS ABSOLUTE AUTO 0.05 K/mm3 (0.00-0.23); BASOPHILS PERCENT AUTO 0 % (0-2); EOSINOPHILS ABSOLUTE AUTO 0.09 K/mm3 (0.00-0.68); EOSINOPHILS PERCENT AUTO 1 % (0-6); Hematocrit 43.2 % (37.0-53.0); Hemoglobin 14.2 g/dL (13.5-17.5); IMMATURE GRAN ABSOLUTE AUTO 0.05 K/mm3 (0.00-0.10); IMMATURE GRAN PERCENT AUTO 0 % (0-1); LYMPHOCYTES ABSOLUTE AUTO 1.19 K/mm3 (0.84-5.20); LYMPHOCYTES PERCENT AUTO 10 % (21-46); MONOCYTES ABSOLUTE AUTO 1.26 K/mm3 (0.16-1.47); MONOCYTES PERCENT AUTO 10 % (4-13); Mean Corpuscular HGB 30.1 pg (26.0-34.0); Mean Corpuscular HGB Conc 32.9 g/dL (31.5-36.5); Mean Corpuscular Volume 92 fL (80-100); Mean Platelet Volume 10.4 fL (9.1-12.4); NEUTROPHILS ABSOLUTE AUTO 9.78 K/mm3 (1.96-9.15); NEUTROPHILS PERCENT AUTO 79 % (41-73); Platelet Count 179 K/mm3 (150-400); RDW Coefficient Variation 12.7 % (11.7-14.2); RDW Standard Deviation 42.6 fL (35.1-46.3); Red Blood Cell Count 4.71 M/mm3 (4.30-5.90); White Blood Cell Count 12.42 K/mm3 (4.00-11.30)
[2020-11-22 06:29] LABS: Anion Gap 6 mmol/L (6-16); Blood Urea Nitrogen 19 mg/dL (8-24); Bun/Creatinine Ratio 24.7 (12.0-20.0); CO2, Blood 28 mmol/L (21-32); Calcium, Blood 9.4 mg/dL (8.5-10.1); Chloride, Blood 104 mmol/L (98-108); Creatinine, Blood 0.77 mg/dL (0.60-1.20); Glomerular Filtration Rate >60 (60-); Glucose, Blood 130 mg/dL (70-99); Sodium, Blood 138 mmol/L (136-145)
--- NOTE | 2020-11-22 06:35 | NUR ---
SHIFT SUMMARY PT A&O X 3-4; DENIES CHEST PAIN; ELEVATED BP; LABETALOL GIVEN 1X THIS SHIFT; AFIB NOTED ON TELE, W/ HR 70'S; AMIO GTT INFUSING; MCBRIDE PATENT & DRAINING; PT BECOMES QUITE ANXIOUS; CALLS OUT & MOANS; SLEPT A COUPLE HOURS EARLY THIS AM AFTER MELATONIN & ATIVAN; UP TO RECLINER, BACK TO BED AND BACK AGAIN; O2 SATS >93 ON RA; REED PATENT & DRAINING; CHARGED PT'S CELL PHONE AND RETURNED IT TO HIM, HE WAS ANXIOUS TO SHOW STAFF PICTURES OF LONG DISTANCE GIRL FRIEND; BELONGINGS AND CALL LIGHT IN REACH; BED IN LOWEST POSIITION; WILL CONTINTUE TO MONITOR [place] UNTIL HAND OFF TO DAY SHIFT RN.
--- NOTE | 2020-11-22 17:27 | NUR ---
SHIFT SUMMARY PT HAS BEEN RESTLESS AND ANXIOUS TODAY. PT RECEIVED A ONE TIME DOSE OF ATIVAN THIS AFTERNOON WHICH WAS HELPFUL WITH HIS ANXIETY AND RESTLESSNESS. PT HAS MOVED BACK AND FORTH BETWEEN THE BED AND CHAIR FREQUENTLY TODAY REQUIRING THE ALARMS TO BE ON HE IS NOT CALLING APPROPRIATELY. MUSIC, DISTRACTION ARE HELPFUL WITH HIS ANXIETY WELL. BP HAS BEEN SLIGHTLY ELEVATED OTHERWISE VS ARE STABLE; PT ON RA. PT IS VISITING WITH HIS SON AND HAVING DINNER AT THIS TIME.
[2020-11-23 06:22] LABS: BASOPHILS ABSOLUTE AUTO 0.07 K/mm3 (0.00-0.23); BASOPHILS PERCENT AUTO 1 % (0-2); EOSINOPHILS ABSOLUTE AUTO 0.18 K/mm3 (0.00-0.68); EOSINOPHILS PERCENT AUTO 1 % (0-6); Hematocrit 44.4 % (37.0-53.0); Hemoglobin 14.8 g/dL (13.5-17.5); IMMATURE GRAN ABSOLUTE AUTO 0.06 K/mm3 (0.00-0.10); IMMATURE GRAN PERCENT AUTO 0 % (0-1); LYMPHOCYTES ABSOLUTE AUTO 1.15 K/mm3 (0.84-5.20); LYMPHOCYTES PERCENT AUTO 8 % (21-46); MONOCYTES ABSOLUTE AUTO 1.28 K/mm3 (0.16-1.47); MONOCYTES PERCENT AUTO 9 % (4-13); Mean Corpuscular HGB 30.5 pg (26.0-34.0); Mean Corpuscular HGB Conc 33.3 g/dL (31.5-36.5); Mean Corpuscular Volume 92 fL (80-100); Mean Platelet Volume 10.3 fL (9.1-12.4); NEUTROPHILS ABSOLUTE AUTO 10.87 K/mm3 (1.96-9.15); NEUTROPHILS PERCENT AUTO 80 % (41-73); Platelet Count 199 K/mm3 (150-400); RDW Coefficient Variation 12.6 % (11.7-14.2); RDW Standard Deviation 41.9 fL (35.1-46.3); Red Blood Cell Count 4.85 M/mm3 (4.30-5.90); White Blood Cell Count 13.61 K/mm3 (4.00-11.30)
--- NOTE | 2020-11-23 06:31 | NUR ---
SHIF SUMMARY PT A&O X 3-4; VSS; BP ELEVATED AT TIMES; AFIB NOTED ON TELE W/ HR 90-120; O2 SATS >93 ON RA; RR SHALLOW AND IRREGULAR AT TIMES, BUT SEEMS ANXIETY DRIVEN; PT BECAME QUITE ANXIOUS AND ALMAS OMNTANEZ WAS NOTIFIED; ONE TIME XANAX ORDER GIVEN; PT HAD A POOR INITIAL REACTION, BECAME IMPULSIVE, VERY SLEEPING AND TRYING TO STAND BUT UNABLE; AFTER SIGNIFICANT TIME PT FELL ASLEEP AND REMAINED ASLEEP FOR A FEW HOURS; REED PATENT & DRAINING YELLOW; CALL LIGHT IN REACH; BED IN LOWEST POSITION; BED ALARM ON FOR SAFETY; WILL CONTINUE TO MONITOR CLOSELY UNTIL HAND OFF TO DAY SHIFT RN.
[2020-11-23 06:38] LABS: Anion Gap 6 mmol/L (6-16); Blood Urea Nitrogen 14 mg/dL (8-24); Bun/Creatinine Ratio 16.5 (12.0-20.0); CO2, Blood 30 mmol/L (21-32); Calcium, Blood 9.1 mg/dL (8.5-10.1); Chloride, Blood 102 mmol/L (98-108); Creatinine, Blood 0.85 mg/dL (0.60-1.20); Glomerular Filtration Rate >60 (60-); Glucose, Blood 108 mg/dL (70-99); Potassium, Blood 3.7 mmol/L (3.5-5.5); Sodium, Blood 138 mmol/L (136-145)
[2020-11-23] MEDS ORDERED: METO25 PO (16:50)
[2020-11-23] MEDS ORDERED: AMIODARONE HCL400 M2 PO (16:52)
[2020-11-23] MEDS ORDERED: Plavix75 MG PO (16:54)
[2020-11-23] MEDS ORDERED: EZET10 PO (16:54)
[2020-11-23] MEDS ORDERED: FISH OIL 1,2001 EAC4 PO (16:58)
[2020-11-23] MEDS ORDERED: Amiodarone HCl200 MG PO (17:00)
--- NOTE | 2020-11-23 17:58 | NUR ---
DISCHARGE: PT AND FRIEND/CAREGIVER, ALY, PROVIDED WITH DC PAPERWORK AND INSTRUCTIONS. PT V/U, DENIES QUESTIONS. PT DISCHARGED IN NAD.
== END 2020-11-23 17:50 | disposition home or self-care (01) | DRG 246 ==
LOC: ER 12:18 → PCU 13:11 → ICUE 13:11 → ICUW 13:11 → ICUE 14:27 → ICUW 14:29 → ICUE 15:15 → PCU 11-21 18:22
PROVIDERS: Emergency Medicine; Hospitalist; Internal Medicine; ADMIT Internal Medicine Cardiovascular Disease
PROC: 027035Z Dilation of Coronary Artery, One Artery with Two Drug-eluting Intraluminal Devices, Percutaneous Approach (ICD-10-PCS; principal; 2020-11-19)
PROC: 02H63JZ Insertion of Pacemaker Lead into Right Atrium, Percutaneous Approach (ICD-10-PCS; 2020-11-19)
PROC: 4A023N7 Measurement of Cardiac Sampling and Pressure, Left Heart, Percutaneous Approach (ICD-10-PCS; 2020-11-19)
PROC: 5A1223Z Performance of Cardiac Pacing, Continuous (ICD-10-PCS; 2020-11-19)
PROC: B2121ZZ Fluoroscopy of Single Coronary Artery Bypass Graft using Low Osmolar Contrast (ICD-10-PCS; 2020-11-19)
PROC: B2111ZZ Fluoroscopy of Multiple Coronary Arteries using Low Osmolar Contrast (ICD-10-PCS; 2020-11-19)
DX: I21.4 Non-ST elevation (NSTEMI) myocardial infarction (principal); G92 Toxic encephalopathy; I48.20 Chronic atrial fibrillation, unspecified; I50.40 Unspecified combined systolic (congestive) and diastolic (congestive) heart failure; G40.909 Epilepsy, unspecified, not intractable, without status epilepticus; I25.10 Atherosclerotic heart disease of native coronary artery without angina pectoris; I48.91 Unspecified atrial fibrillation; I11.0 Hypertensive heart disease with heart failure; I25.2 Old myocardial infarction; Z95.1 Presence of aortocoronary bypass graft; Z98.890 Other specified postprocedural states; Z79.01 Long term (current) use of anticoagulants; Z79.899 Other long term (current) drug therapy
CPT/HCPCS: 36415; 36600; 51702; 71045; 76937; 80047; 80048; 80053; 80061; 80162; 81001; 82803; 83880; 84484; 85014; 85018; 85025; 85347; 93005; 93010; 93306; 93459; 96374-59; 96375-59; 99152; 99153; 99285-25; A9270; A9270-GY; C1725; C1760; C1769; C1874; C1887; C1894; C9600; J0282; J0461; J1162; J1170; J1265; J1644; J1940; J2060; J2250; J2310; J2370; J2405; J3010; J3246; J3475; J7030; J7050; J7060; Q9967

== ENCOUNTER 2020-11-24 09:54 | Emergency (ER) | payer OTHER ==
[~2020-11-24] VITALS: Ht 172.7 cm; Wt 83.9 kg
[~2020-11-24 09:54] MED LIST changes: +ALBU90OI INH; +AMIODARONE HCL400 M2 PO; +ATHLETE'S FOO35.4 GM TOP; +DILT180 PO; +EZET10 PO; +FISH OIL 1,2001 EAC4 PO; +LANOXIN250 MCG PO; +METO25 PO; +Plavix75 MG PO; +SILDENAFIL CITR50 MG PO; +VITAMIN E100 UNI1 PO; +WARF5 PO; +ZADITOR5 M1 BOTHEYES
== END 2020-11-24 11:00 | disposition home or self-care (01) ==
LOC: ER 09:54
DX: Z48.00 Encounter for change or removal of nonsurgical wound dressing (principal); I10 Essential (primary) hypertension; I48.91 Unspecified atrial fibrillation; Z79.899 Other long term (current) drug therapy; Z79.02 Long term (current) use of antithrombotics/antiplatelets
CPT/HCPCS: 99282; A9270

== ENCOUNTER 2021-07-01 22:51 | Inpatient (IN) | payer OTHER ==
[~2021-07-01] VITALS: Ht 172.7 cm; Wt 84.4 kg
[~2021-07-01 22:51] MED LIST changes: -ALBU90OI INH; -FISH OIL 1,2001 EAC4 PO; -LANOXIN250 MCG PO; -METO25 PO
[2021-07-02 00:47] LABS: BASOPHILS ABSOLUTE AUTO 0.06 K/mm3 (0.00-0.23); BASOPHILS PERCENT AUTO 1 % (0-2); EOSINOPHILS ABSOLUTE AUTO 0.15 K/mm3 (0.00-0.68); EOSINOPHILS PERCENT AUTO 1 % (0-6); Hematocrit 45.9 % (37.0-53.0); Hemoglobin 15.2 g/dL (13.5-17.5); IMMATURE GRAN ABSOLUTE AUTO 0.03 K/mm3 (0.00-0.10); IMMATURE GRAN PERCENT AUTO 0 % (0-1); LYMPHOCYTES ABSOLUTE AUTO 0.96 K/mm3 (0.84-5.20); LYMPHOCYTES PERCENT AUTO 9 % (21-46); MONOCYTES ABSOLUTE AUTO 0.92 K/mm3 (0.16-1.47); MONOCYTES PERCENT AUTO 8 % (4-13); Mean Corpuscular HGB 30.8 pg (26.0-34.0); Mean Corpuscular HGB Conc 33.1 g/dL (31.5-36.5); Mean Corpuscular Volume 93 fL (80-100); Mean Platelet Volume 10.4 fL (9.1-12.4); NEUTROPHILS ABSOLUTE AUTO 8.89 K/mm3 (1.96-9.15); NEUTROPHILS PERCENT AUTO 81 % (41-73); Platelet Count 228 K/mm3 (150-400); RDW Coefficient Variation 13.3 % (11.7-14.2); RDW Standard Deviation 45.2 fL (35.1-46.3); Red Blood Cell Count 4.93 M/mm3 (4.30-5.90); White Blood Cell Count 11.01 K/mm3 (4.00-11.30)
[2021-07-02 01:10] LABS: Troponin I 0.067 ng/mL (0.000-0.040)
[2021-07-02 01:13] LABS: Anion Gap 7 mmol/L (6-16); Blood Urea Nitrogen 19 mg/dL (8-24); CO2, Blood 27 mmol/L (21-32); Calcium, Blood 9.2 mg/dL (8.5-10.1); Chloride, Blood 108 mmol/L (98-108); Creatinine, Blood 1.12 mg/dL (0.60-1.20); Glomerular Filtration Rate >60 (60-); Glucose, Blood 120 mg/dL (70-99); Potassium, Blood 3.9 mmol/L (3.5-5.5); Sodium, Blood 142 mmol/L (136-145)
[2021-07-02] MEDS ORDERED: LANOXIN125 MCG PO (01:55)
[2021-07-02] MEDS ORDERED: KEPPRA IV (04:49)
[2021-07-02 06:05] LABS: Digoxin (Lanoxin) 0.61 ug/mL (0.80-2.00)
[2021-07-02 10:35] LABS: Influenza A, PCR NEGATIVE (NEGATIVE); Influenza B, PCR NEGATIVE (NEGATIVE); Resp Syncytial Virus, PCR NEGATIVE (NEGATIVE); SARS-Cov-2 (COVID-19) PCR, MMC NEGATIVE (NEGATIVE)
[2021-07-02] MEDS ORDERED: DIGOX125 MC1 PO (15:15)
[2021-07-02] MEDS ORDERED: LISI20 PO (15:18)
[2021-07-02] MEDS ORDERED: DILT180 PO (15:18)
[2021-07-02] MEDS ORDERED: METO100ER PO (15:19)
[2021-07-02] MEDS ORDERED: ALBU90OI INH (15:19)
[2021-07-02] MEDS ORDERED: LEVE500 PO (15:21)
[2021-07-02] MEDS ORDERED: FISH OIL 1,2001 EAC4 PO (15:21)
[2021-07-02] MEDS ORDERED: ELIQUIS5 M2 PO (15:22)
[2021-07-02] MEDS ORDERED: Vitamin B Comple1 EA PO (15:23)
--- NOTE | 2021-07-02 18:45 | NUR ---
SHIFT SUMMARY: PT ADMITTED TO FLOOR AT 1745. PT ORIENTED TO CALL LIGHT, ROOM. BED ALARM ON FOR SAFETY AND BED IN LOW POSITION. PT MEDICATION RECONCILIATION COMPLETED. BLOOD CONSENT SIGNED. TELE PLACED. PT HAS ELEVATED BP ON ADMIT, METOPROLOL GIVEN IN ER. PT DENIES CP, NAUSEA. DOES HAVE SOB WITH SPEAKING.
--- NOTE | 2021-07-03 03:59 | NUR ---
SHIFT SUMMARY ADMITTED FOR AFIB W/RVR. FULL CODE. [facility] PT. TELEMETRY: AFIB @ 120 BPM. I DID GIVE HIS SCHEDULED LOPRESSOR. HX OF CVA AND SEIZURES. HE STATED HE FELT LIKE HE COULDN'T BREATH AND I CALLED RT FOR A BREATHING TREATMENT. THIS WAS EFFECTIVE. HE IS A STANDBY ASSIST W/BRP. HE IS ON ELIQUIS. HE IS 98% ON RA
[2021-07-03 05:16] LABS: Hematocrit 50.1 % (37.0-53.0); Hemoglobin 16.6 g/dL (13.5-17.5); Mean Corpuscular HGB 30.6 pg (26.0-34.0); Mean Corpuscular HGB Conc 33.1 g/dL (31.5-36.5); Mean Corpuscular Volume 92 fL (80-100); Mean Platelet Volume 10.4 fL (9.1-12.4); Platelet Count 212 K/mm3 (150-400); RDW Coefficient Variation 13.2 % (11.7-14.2); RDW Standard Deviation 45.1 fL (35.1-46.3); Red Blood Cell Count 5.42 M/mm3 (4.30-5.90); White Blood Cell Count 12.24 K/mm3 (4.00-11.30)
[2021-07-03 06:25] LABS: Albumin, Blood 3.2 g/dL (3.4-5.0); Anion Gap 8 mmol/L (6-16); Blood Urea Nitrogen 25 mg/dL (8-24); Bun/Creatinine Ratio 21.4 (12.0-20.0); CO2, Blood 30 mmol/L (21-32); Calcium, Blood 9.6 mg/dL (8.5-10.1); Chloride, Blood 100 mmol/L (98-108); Creatinine, Blood 1.17 mg/dL (0.60-1.20); Digoxin (Lanoxin) 0.85 ug/mL (0.80-2.00); Glomerular Filtration Rate >60 (60-); Glucose, Blood 99 mg/dL (70-99); Phosphorus, Blood 4.5 mg/dL (2.5-4.9); Potassium, Blood 4.1 mmol/L (3.5-5.5); Sodium, Blood 138 mmol/L (136-145)
--- NOTE | 2021-07-03 08:36 | NUR ---
TALKED TO ABOUT VITAL SIGNS. PER NETWORKS SOFTWARE CONSULTANT 130'SA FIB T/O NIGHT. TO LOOK AT CHART.
--- NOTE | 2021-07-03 10:54 | NUR ---
left message on voice mail. patient still 130's to low 140. got digoxin. gets lopressor tartrate qid. still want him to continue with that med or different one? awaiting orders.
--- NOTE | 2021-07-03 11:18 | NUR ---
PER GIVE METOPROLOL TARTRATE 25 MG P.O. SO TOTAL 50 FOR NOON HOUR GETS SCHEDULED LOPRESSOR
--- NOTE | 2021-07-03 13:20 | NUR ---
Pt reported that he tries to limit his cholesterol and eat more beets for heart health. Encouraged pt to focus on limiting dietary sodium to avoid fluid accumulation. Reviewed common sources of sodium in the diet and discussed seasoning alternatives. Pt enjoys microwave meals and peanut butter and jelly sandwiches, so ways to choose lower sodium options of these foods. Educated pt on recommended sodium limit and how to determine if foods are considered high or low sodium foods by reading nutrition labels. Good compliance is expected.
--- NOTE | 2021-07-03 14:28 | NUR ---
PER LINING STUFFER HEART RATE TRENDING DOWN. RUNNING 1TEENS.
--- NOTE | 2021-07-03 15:44 | NUR ---
CALLED WOUND CLINIC AND ORDERED WOUND CLINIC EVAL PER . JASMYN TO COME UP AND DO NEW DRESSING. PATIENT HAD SILVER CONTACT LAYER, THEN BLUE COFLEX WRAPPING THEN COBAN COMPRESSION WITH LOW GRADE 20-30 MM MERCURY( PER RONI V.A.)
--- NOTE | 2021-07-03 16:37 | NUR ---
ALERT. ORIENTED. ONE PERSON ASSIST TO BATHROOM. BED AND CHAIR ALARMS. TELE ON AND HAS VARIED T/O DAY, BUT AT THIS TIME AFIB BETWEEN 118-125. JASMYN FROM WOUND CARE CLINIC CAME UP TO SEE PATIENT. SHE CALLED VBrenda PRIOR TO COMING UP AND STS Conrad IS GOING TO DO SOME VASCULAR STUDIES ON THURSDAY. PATIENT LEFT LATERAL LOWER EXT SCAB ABOUT 1/4 SIZE OF ERASER HEAD WITH ANOTHER ON RT MEDIAL ASPECT OF LEG. BOTH SCABS DRY, NO DRAINAGE. JASMYN PLACES COMPRESSION TUBEX GAUZE THAT COMES OFF AT NIGHT. BOTH LEGS DARKER IN COLOR WHEN DEPENDENT BUT LOOK MUCH BETTER WHEN IN BED. COOPERATIVE. WCTM
--- NOTE | 2021-07-04 03:54 | NUR ---
SHIFT SUMMARY ADMITTED FOR AFIB W/RVR. FULL CODE. [facility] PT. TELEMETRY: AFIB IN 130'S BPM - AVG. HE IS ON ELIQUIS. HE IS [place]. HE CALLS OUT AT TIMES. HE HAS HX OF CVA - I NOTE SOME COGNITIVE CHALLENGES. HE IS STANDBY ASSIST - BRP.
[2021-07-04 04:51] LABS: Hematocrit 48.4 % (37.0-53.0); Hemoglobin 15.9 g/dL (13.5-17.5); Mean Corpuscular HGB 30.8 pg (26.0-34.0); Mean Corpuscular HGB Conc 32.9 g/dL (31.5-36.5); Mean Corpuscular Volume 94 fL (80-100); Mean Platelet Volume 10.8 fL (9.1-12.4); Platelet Count 203 K/mm3 (150-400); RDW Coefficient Variation 13.2 % (11.7-14.2); RDW Standard Deviation 45.7 fL (35.1-46.3); Red Blood Cell Count 5.17 M/mm3 (4.30-5.90); White Blood Cell Count 9.65 K/mm3 (4.00-11.30)
[2021-07-04 05:30] LABS: Albumin, Blood 2.9 g/dL (3.4-5.0); Anion Gap 8 mmol/L (6-16); Blood Urea Nitrogen 30 mg/dL (8-24); Bun/Creatinine Ratio 25.6 (12.0-20.0); CO2, Blood 32 mmol/L (21-32); Calcium, Blood 9.4 mg/dL (8.5-10.1); Chloride, Blood 99 mmol/L (98-108); Creatinine, Blood 1.17 mg/dL (0.60-1.20); Glomerular Filtration Rate >60 (60-); Glucose, Blood 87 mg/dL (70-99); Phosphorus, Blood 4.6 mg/dL (2.5-4.9); Potassium, Blood 4.2 mmol/L (3.5-5.5); Sodium, Blood 139 mmol/L (136-145)
--- NOTE | 2021-07-04 06:08 | NUR ---
PCU CHARGE CALLED ME RE: TACHYCARDIA INFORMED ME THAT PT HAD SUSTAINED HR IN 130'S SINCE 0000 HRS, AND WAS NOT TRENDING BACK DOWN. I CALLED HOSPITALIST AND RECEIVED ORDER FOR IV LOPRESSOR. ALSO SCHEDULED BID DOSAGE OF METOPROLOL WAS CHANGED.
--- NOTE | 2021-07-04 17:25 | NUR ---
PATIENT IS ALERT AND ORIENTED AND COOPERATIVE WITH CARE. USES THE URINAL INDEPENDENTLY. UP TO CHAIR WITH 1PA. ON TELEMETRY. PER WET CLEANER MACHINE HE IS IN AFIB AT 110 BPM. HIS HR WAS ELEVATED THIS MORNING IN THE 130'S-140'S, MEDS GIVEN PER EMAR. CARDIOLOGY CONSULT WAS PLACED THIS MONRING. WILL CONTINUE TO MONITOR
--- NOTE | 2021-07-05 04:00 | NUR ---
SHIFT SUMMARY ADMITTED FOR CHF EXACERBATION. FULL CODE. TELEMETRY: AFIB @ 96 BPM. RA. STANDBY ASSIST - BRP. CARDIOLOGY CONSULT IS DR. EUCEDA. SC PT - GOLD TEAM. ELIALEXAIS AND ENTRESTO ARE SCHEDULED. I DID CALL FOR PRN EUSEBIO DUE TO INSOMNIA WHICH WAS SOMEWHAT EFFECTIVE, HE SLEPT FOR 4 HOURS - AN IMPROVEMENT OVER THE PREVIOUS EVENING. I NOTE A COGNITIVE DEFICIT OF SOME KIND. HX OF SEIZURES, AFIB, CVA, PTSD AND GA'S (X2).
[2021-07-05 06:54] LABS: Bun/Creatinine Ratio 22.5 (12.0-20.0); Calcium, Blood 9.2 mg/dL (8.5-10.1); Creatinine, Blood 1.2 mg/dL (0.60-1.20); Magnesium, Blood 2.3 mg/dL (1.6-2.4); Potassium, Blood 4.7 mmol/L (3.5-5.5)
[2021-07-05 08:41] LABS: Digoxin (Lanoxin) 0.84 ug/mL (0.80-2.00)
--- NOTE | 2021-07-05 10:42 | NUR ---
HEART RATE BOOK ILLUSTRATOR SEAN CALLED ABOUT PATIENT SUSTAINING HEART RATE AT 130, OCCASIONALLY GOING UP TO 160. BOOK ILLUSTRATOR REPORTS PATIENT HR HAS BEEN SLOWLY INCREASING THIS MORNING. DR. MEDLEY NOTIFIED. NO NEW ORDERS YET.
--- NOTE | 2021-07-05 13:02 | NUR ---
HEART RATE PATIENT STILL SUSTIANING AT 130 PER ACCOUNT MANAGER. IV LOPRESSOR GIVEN. NEW ORDERS PLACED. HEART RATE DOWN TO 120 PER ACCOUNT MANAGER.
[2021-07-05 14:37] LABS: Influenza A, PCR NEGATIVE (NEGATIVE); Influenza B, PCR NEGATIVE (NEGATIVE); Resp Syncytial Virus, PCR NEGATIVE (NEGATIVE); SARS-Cov-2 (COVID-19) PCR, MMC NEGATIVE (NEGATIVE)
--- NOTE | 2021-07-05 16:26 | NUR ---
DISCHARGE PATIENT TRANSPORTED VIA GURNEY BY AMBULANCE TO [facility] IN [place]. DISCHARGE PAPERWORK GIVEN TO ASSISTANT TEACHER. TELE REMOVED WITHOUT DIFFICULTY. IV PATENT AND FLUSHED WITH 10NS BEFORE LEAVING. BELONGINGS SENT WITH PATIENT. REPORT CALLED TO [facility].
== END 2021-07-05 16:22 | disposition short-term general hospital (02) | DRG 291 ==
LOC: ER 22:51 → ERHOLD 22:52 → MEDS 07-02 15:44 → ERHOLD 07-02 15:44 → MEDS 07-02 17:50
PROVIDERS: Emergency Medicine; Internal Medicine; Student in an Organized Health Care Education/Training Program; ADMIT Internal Medicine
DX: I11.0 Hypertensive heart disease with heart failure (principal); I50.23 Acute on chronic systolic (congestive) heart failure; Z20.822 Contact with and (suspected) exposure to COVID-19; I48.0 Paroxysmal atrial fibrillation; J45.909 Unspecified asthma, uncomplicated; I25.10 Atherosclerotic heart disease of native coronary artery without angina pectoris; G40.909 Epilepsy, unspecified, not intractable, without status epilepticus; Z88.8 Allergy status to other drugs, medicaments and biological substances; Z79.02 Long term (current) use of antithrombotics/antiplatelets; Z79.899 Other long term (current) drug therapy; I25.2 Old myocardial infarction; Z95.1 Presence of aortocoronary bypass graft; Z86.73 Personal history of transient ischemic attack (TIA), and cerebral infarction without residual deficits; Z87.891 Personal history of nicotine dependence; Z98.890 Other specified postprocedural states
CPT/HCPCS: 0241U; 36415; 71045; 80048; 80069; 80162; 83735; 83880; 84484; 85025; 85027; 93005; 93010; 93306; 94640; 94760; 96365; 96375; 96376; 97162; 97165; 97530; 97535; 99285-25; A9270; J1160; J1940

== ENCOUNTER 2021-07-29 16:51 | Inpatient (IN) | payer OTHER ==
[~2021-07-29] VITALS: Ht 172.7 cm; Wt 84.2 kg
[~2021-07-29 16:51] MED LIST changes: +ALBU90OI INH; +DIGOX125 MC1 PO; +ELIQUIS5 M2 PO; +FISH OIL 1,2001 EAC4 PO; +KEPPRA IV; +Vitamin B Comple1 EA PO
[2021-07-29 17:20] LABS: BASOPHILS ABSOLUTE AUTO 0.07 K/mm3 (0.00-0.23); BASOPHILS PERCENT AUTO 1 % (0-2); EOSINOPHILS ABSOLUTE AUTO 0.13 K/mm3 (0.00-0.68); EOSINOPHILS PERCENT AUTO 1 % (0-6); Hematocrit 48.2 % (37.0-53.0); Hemoglobin 16.1 g/dL (13.5-17.5); IMMATURE GRAN ABSOLUTE AUTO 0.03 K/mm3 (0.00-0.10); IMMATURE GRAN PERCENT AUTO 0 % (0-1); LYMPHOCYTES ABSOLUTE AUTO 1.29 K/mm3 (0.84-5.20); LYMPHOCYTES PERCENT AUTO 14 % (21-46); MONOCYTES ABSOLUTE AUTO 0.58 K/mm3 (0.16-1.47); MONOCYTES PERCENT AUTO 6 % (4-13); Mean Corpuscular HGB 30.8 pg (26.0-34.0); Mean Corpuscular HGB Conc 33.4 g/dL (31.5-36.5); Mean Corpuscular Volume 92 fL (80-100); Mean Platelet Volume 10.7 fL (9.1-12.4); NEUTROPHILS ABSOLUTE AUTO 7.49 K/mm3 (1.96-9.15); NEUTROPHILS PERCENT AUTO 78 % (41-73); Platelet Count 202 K/mm3 (150-400); RDW Coefficient Variation 13.1 % (11.7-14.2); RDW Standard Deviation 44.3 fL (35.1-46.3); Red Blood Cell Count 5.22 M/mm3 (4.30-5.90); White Blood Cell Count 9.59 K/mm3 (4.00-11.30)
[2021-07-29 17:41] LABS: Troponin I 0.081 ng/mL (0.000-0.040)
[2021-07-29 17:42] LABS: Albumin, Blood 3.3 g/dL (3.4-5.0); Albumin/Globulin Ratio 0.8 (0.8-1.8); Bun/Creatinine Ratio 19.5 (12.0-20.0); Calcium, Blood 9.4 mg/dL (8.5-10.1); Creatinine, Blood 1.23 mg/dL (0.60-1.20); Globulin, Blood 3.9 g/dL (2.2-4.0); Potassium, Blood 4.3 mmol/L (3.5-5.5); Total Protein, Blood 7.2 g/dL (6.4-8.2)
[2021-07-29 21:40] LABS: Digoxin (Lanoxin) 0.77 ug/mL (0.80-2.00)
--- NOTE | 2021-07-29 21:59 | NUR ---
UPDATE THIS RN SPOKE TO REGARDING PT'S HR THAT HAS BEEN AFIB 120-140'S. PROVIDER TO PUT IN NEW ORDERS.
[2021-07-30 04:20] LABS: BASOPHILS ABSOLUTE AUTO 0.07 K/mm3 (0.00-0.23); BASOPHILS PERCENT AUTO 1 % (0-2); EOSINOPHILS ABSOLUTE AUTO 0.39 K/mm3 (0.00-0.68); EOSINOPHILS PERCENT AUTO 5 % (0-6); Hematocrit 46.3 % (37.0-53.0); Hemoglobin 15.2 g/dL (13.5-17.5); IMMATURE GRAN ABSOLUTE AUTO 0.03 K/mm3 (0.00-0.10); IMMATURE GRAN PERCENT AUTO 0 % (0-1); LYMPHOCYTES ABSOLUTE AUTO 1.64 K/mm3 (0.84-5.20); LYMPHOCYTES PERCENT AUTO 22 % (21-46); MONOCYTES ABSOLUTE AUTO 0.75 K/mm3 (0.16-1.47); MONOCYTES PERCENT AUTO 10 % (4-13); Mean Corpuscular HGB 30.8 pg (26.0-34.0); Mean Corpuscular HGB Conc 32.8 g/dL (31.5-36.5); Mean Corpuscular Volume 94 fL (80-100); Mean Platelet Volume 11.1 fL (9.1-12.4); NEUTROPHILS ABSOLUTE AUTO 4.64 K/mm3 (1.96-9.15); NEUTROPHILS PERCENT AUTO 62 % (41-73); Platelet Count 178 K/mm3 (150-400); RDW Standard Deviation 44.3 fL (35.1-46.3); Red Blood Cell Count 4.93 M/mm3 (4.30-5.90); White Blood Cell Count 7.52 K/mm3 (4.00-11.30)
[2021-07-30 04:58] LABS: Digoxin (Lanoxin) 1.83 ug/mL (0.80-2.00); LDL/HDL RATIO 1.7; Troponin I 0.098 ng/mL (0.000-0.040); Very Low Density Lipoprot Chol 25 mg/dL (6-32)
[2021-07-30 04:59] LABS: Alanine Aminotransfer (ALT/SGP 24 U/L (12-78); Albumin/Globulin Ratio 0.8 (0.8-1.8); Alk Phos 77 U/L (50-136); Anion Gap 7 mmol/L (6-16); Aspartate Aminotrans (AST/SGOT 24 U/L (12-37); Bilirubin, Total 0.8 mg/dL (0.1-1.0); Blood Urea Nitrogen 26 mg/dL (8-24); Bun/Creatinine Ratio 21.7 (12.0-20.0); CHOL/HDL RATIO 3.4; CO2, Blood 30 mmol/L (21-32); Calcium, Blood 9.2 mg/dL (8.5-10.1); Chloride, Blood 107 mmol/L (98-108); Cholesterol 124 mg/dL (50-200); Globulin, Blood 3.6 g/dL (2.2-4.0); Glomerular Filtration Rate 60 (60-); Glucose, Blood 92 mg/dL (70-99); HDL Cholesterol 36 mg/dL (>39); Low Density Lipoprotein Chol 63 mg/dL (0-110); Potassium, Blood 4.4 mmol/L (3.5-5.5); Sodium, Blood 144 mmol/L (136-145); Total Protein, Blood 6.6 g/dL (6.4-8.2); Triglycerides 126 mg/dL (30-160)
--- NOTE | 2021-07-30 05:30 | NUR ---
VEGETABLE INSPECTOR SUMMARY PT IS AXO X4 AND COOPERATIVE W CARE. PT HR HAS REMAINED AFIB 100-140 BUT AVERAGING IN THE 120'S THIS SHIFT. DIGOXIN AND PRN LOPRESSOR PUSH GIVEN W LITTLE EFFECT. BP MILDLY ELEVATED ALL SHIFT. PT IS SOB W MOVEMENT OR ACTIVITY BUT HAS MAINTAINED O2 SATS >90% ON RM AIR THIS SHIFT. PT HAS DENIED ANY CP OR PRESSURE THIS SHIFT. NO NAUSEA THIS SHIFT. PT SLEPT COMFORTABLY IN BED FOR MOST OF THE SHIFT. WILL REPORT TO ONCOMING RN.
--- NOTE | 2021-07-30 12:52 | NUR ---
Sat on side of bed for lunch. Sitting up, talking on phone loudly after eating. Set up for sponge bath/oral care, which he said he wanted to do himself.
--- NOTE | 2021-07-30 17:24 | NUR ---
SHIFT SUMMARY: PATIENT STABLE THROUGHOUT SHIFT. DESAT TO 85-88% WHILE NAPPING - APPLIED O2 AT 2L VIA NC. PATIENT WOULD BENEFIT FROM CPAP BUT REFUSED STATING HE HAD ONE AT HOME BUT "COULDN'T SLEEP WITH THE DAVIES THING MAKING ALL THAT RACKET." PATIENT'S LEGS TURN PUPLE WHEN HE SITS ON THE SIDE OF THE BED - KEEP ELEVATED. HR TRENDS IN 104-140 WHEN AWAKE AND 90S WHEN ASLEEP. PATIENT A&O, FRIENDLY, AND TALKATIVE. USES CALL LIGHT APPROPRIATELY. USES URINAL AT BEDSIDE. ECHO WAS CANCELLED, CONFIRMED WITH MD. WILL REPORT TO NOC RN.
--- NOTE | 2021-07-30 19:35 | NUR ---
PT IS ALERT AND ORIENTED. PT IS REQUESTING CHOCOLATE PUDDING - PROVIDED. PT IS IN LOW SEMI FOWLERS POSITION IN BED. PT DENIES ANY COMPLAINTS OF PAIN, CHEST PAIN, SOB, NAUSEA, NUMBNESS OR TINGLING, OR HEADACHE. PT IN AFIB WITH OCCASIONAL PVC'S. LAC IV PATENT, FLUSHED AND SL'D. PT'S LE'S ARE DISCOLORED AND HAVE SCALY SKIN. FLUIDS AT BEDSIDE. CALL LIGHT WITHIN REACH. BED IN LOW POSITION. PT THEN ON TELEPHONE WITH HIS SIGNIFICANT OTHER, WHO APPARENTLY LIVES OVERSEAS.
--- NOTE | 2021-07-31 05:46 | NUR ---
SHIFT SUMMARY - NO ACUTE CHANGES THROUGHOUT THIS SHIFT. PT CONTINUES IN AFIB WITH OCCASIONAL PVC'S. PT DENIED ANY COMPLAINTS OF CHEST PAIN, SOB. PT WAS ABLE TO STAND AT BEDSIDE FOR URINAL USE, WITH A SBA - SATS WNL WITH THIS EXERTION. PT SLEPT FOR APPX 5-6 HOURS LAST NOC. PT TOLERATED PO FLUIDS AND SNACK. PT HAS AN OCCASIONAL NON-PRODUCTIVE COUGH. CALL LIGHT WITHIN REACH. BED IN LOW POSITION. FLUIDS AT BEDSIDE.
[2021-07-31] MEDS ORDERED: METOPROLOL TART PO (10:42)
[2021-07-31] MEDS ORDERED: Atarax10 MG PO (10:42)
--- NOTE | 2021-07-31 13:47 | NUR ---
SHIFT SUMMARY: PATIENT DISCHARGED HOME AT 1445. [employer] TRANSPORTED PATIENT VIA WHEELCHAIR [place] [facility] [facility]. [facility] WILL TRANSPORT PATIENT HOME FROM PHARMACY. PATIENT USED TOILET BEFORE LEAVING AND USED WALKER TO WHEELCHAIR. HE THANKED US ALL FOR OUR CARE AND SANG A SONG WHILE BEING WHEELED DOWN THE FRITZ.
[2021-08-01] MEDS ORDERED: ALEVAZOL56.7 G1 TOP (15:30)
[2021-08-01] MEDS ORDERED: Cranberry400 MG PO (15:31)
[2021-08-01] MEDS ORDERED: Acerola C500 MG PO (15:32)
[2021-08-01] MEDS ORDERED: ZADITOR5 M1 BOTHEYES (15:34)
[2021-08-01] MEDS ORDERED: ARTIFICIAL TEA1 EAC1 BOTHEYES (15:36)
[2021-08-01] MEDS ORDERED: HYDHCL25 PO (17:55)
== END 2021-07-31 13:27 | disposition home health service (06) | DRG 309 ==
LOC: ER 16:51 → PCU 19:55
PROVIDERS: Emergency Medicine; Student in an Organized Health Care Education/Training Program; ADMIT Internal Medicine
DX: I48.20 Chronic atrial fibrillation, unspecified (principal); I24.8 Other forms of acute ischemic heart disease; I50.22 Chronic systolic (congestive) heart failure; I11.0 Hypertensive heart disease with heart failure; G40.909 Epilepsy, unspecified, not intractable, without status epilepticus; I25.10 Atherosclerotic heart disease of native coronary artery without angina pectoris; R94.4 Abnormal results of kidney function studies; I25.2 Old myocardial infarction; Z88.8 Allergy status to other drugs, medicaments and biological substances; Z79.01 Long term (current) use of anticoagulants; Z79.899 Other long term (current) drug therapy; Z95.1 Presence of aortocoronary bypass graft
CPT/HCPCS: 36415; 71046; 80053; 80061; 80162; 83735; 83880; 84439; 84443; 84484; 85025; 93005; 93010; 94640; 94664; 94762; 96374; 96376; 97116; 97162; 97166; 97530; 97535; 99285-25; A9270; J1160

== ENCOUNTER 2021-07-31 18:16 | Observation (INO) | payer OTHER ==
[~2021-07-31] VITALS: Ht 189.1 cm; Wt 85.7 kg
[~2021-07-31 18:16] MED LIST changes: +Atarax10 MG PO; +METOPROLOL TART PO
[2021-07-31 19:39] LABS: BASOPHILS ABSOLUTE AUTO 0.04 K/mm3 (0.00-0.23); BASOPHILS PERCENT AUTO 0 % (0-2); EOSINOPHILS ABSOLUTE AUTO 0.36 K/mm3 (0.00-0.68); EOSINOPHILS PERCENT AUTO 4 % (0-6); Hematocrit 46.9 % (37.0-53.0); Hemoglobin 15.4 g/dL (13.5-17.5); IMMATURE GRAN ABSOLUTE AUTO 0.04 K/mm3 (0.00-0.10); IMMATURE GRAN PERCENT AUTO 0 % (0-1); LYMPHOCYTES ABSOLUTE AUTO 1.16 K/mm3 (0.84-5.20); LYMPHOCYTES PERCENT AUTO 13 % (21-46); MONOCYTES ABSOLUTE AUTO 0.61 K/mm3 (0.16-1.47); MONOCYTES PERCENT AUTO 7 % (4-13); Mean Corpuscular HGB 30.9 pg (26.0-34.0); Mean Corpuscular HGB Conc 32.8 g/dL (31.5-36.5); Mean Corpuscular Volume 94 fL (80-100); Mean Platelet Volume 11.4 fL (9.1-12.4); NEUTROPHILS ABSOLUTE AUTO 6.99 K/mm3 (1.96-9.15); NEUTROPHILS PERCENT AUTO 76 % (41-73); Platelet Count 197 K/mm3 (150-400); RDW Coefficient Variation 12.8 % (11.7-14.2); RDW Standard Deviation 44.1 fL (35.1-46.3); Red Blood Cell Count 4.99 M/mm3 (4.30-5.90)
[2021-07-31 19:49] LABS: Alanine Aminotransfer (ALT/SGP 25 U/L (12-78); Albumin, Blood 3.2 g/dL (3.4-5.0); Albumin/Globulin Ratio 0.8 (0.8-1.8); Alk Phos 79 U/L (50-136); Anion Gap 7 mmol/L (6-16); Aspartate Aminotrans (AST/SGOT 26 U/L (12-37); Bilirubin, Total 0.7 mg/dL (0.1-1.0); Blood Urea Nitrogen 28 mg/dL (8-24); Bun/Creatinine Ratio 29.1 (12.0-20.0); CO2, Blood 27 mmol/L (21-32); Chloride, Blood 102 mmol/L (98-108); Creatinine, Blood 0.96 mg/dL (0.60-1.20); Globulin, Blood 3.9 g/dL (2.2-4.0); Glomerular Filtration Rate >60 (60-); Glucose, Blood 128 mg/dL (70-99); Potassium, Blood 4.9 mmol/L (3.5-5.5); Sodium, Blood 136 mmol/L (136-145); Total Protein, Blood 7.1 g/dL (6.4-8.2)
[2021-07-31 21:36] LABS: Influenza A, PCR NEGATIVE (NEGATIVE); Influenza B, PCR NEGATIVE (NEGATIVE); Resp Syncytial Virus, PCR NEGATIVE (NEGATIVE); SARS-Cov-2 (COVID-19) PCR, MMC NEGATIVE (NEGATIVE)
[2021-08-01 00:01] LABS: Digoxin (Lanoxin) 0.99 ug/mL (0.80-2.00)
[2021-08-01 07:42] LABS: BASOPHILS ABSOLUTE AUTO 0.04 K/mm3 (0.00-0.23); BASOPHILS PERCENT AUTO 1 % (0-2); EOSINOPHILS ABSOLUTE AUTO 0.34 K/mm3 (0.00-0.68); EOSINOPHILS PERCENT AUTO 5 % (0-6); Hematocrit 44.2 % (37.0-53.0); Hemoglobin 14.7 g/dL (13.5-17.5); IMMATURE GRAN ABSOLUTE AUTO 0.02 K/mm3 (0.00-0.10); IMMATURE GRAN PERCENT AUTO 0 % (0-1); LYMPHOCYTES PERCENT AUTO 18 % (21-46); MONOCYTES PERCENT AUTO 12 % (4-13); Mean Corpuscular HGB 30.4 pg (26.0-34.0); Mean Corpuscular HGB Conc 33.3 g/dL (31.5-36.5); Mean Corpuscular Volume 91 fL (80-100); Mean Platelet Volume 10.8 fL (9.1-12.4); NEUTROPHILS PERCENT AUTO 64 % (41-73); Platelet Count 175 K/mm3 (150-400); RDW Coefficient Variation 12.6 % (11.7-14.2); RDW Standard Deviation 42.3 fL (35.1-46.3); Red Blood Cell Count 4.84 M/mm3 (4.30-5.90)
[2021-08-01 07:59] LABS: Alanine Aminotransfer (ALT/SGP 20 U/L (12-78); Albumin/Globulin Ratio 0.8 (0.8-1.8); Alk Phos 74 U/L (50-136); Anion Gap 5 mmol/L (6-16); Aspartate Aminotrans (AST/SGOT 19 U/L (12-37); Bilirubin, Total 0.6 mg/dL (0.1-1.0); Blood Urea Nitrogen 27 mg/dL (8-24); Bun/Creatinine Ratio 30.1 (12.0-20.0); CO2, Blood 27 mmol/L (21-32); CPK Creatine Kinase 61 U/L (39-308); Calcium, Blood 9.2 mg/dL (8.5-10.1); Chloride, Blood 106 mmol/L (98-108); Glomerular Filtration Rate >60 (60-); Glucose, Blood 98 mg/dL (70-99); Sodium, Blood 138 mmol/L (136-145)
[2021-08-01 11:48] LABS: Troponin I 0.07 ng/mL (0.000-0.040)
[2021-08-01] MEDS ORDERED: ALEVAZOL56.7 G1 TOP (15:30)
[2021-08-01] MEDS ORDERED: Cranberry400 MG PO (15:31)
[2021-08-01] MEDS ORDERED: Acerola C500 MG PO (15:32)
[2021-08-01] MEDS ORDERED: ZADITOR5 M1 BOTHEYES (15:34)
[2021-08-01] MEDS ORDERED: ARTIFICIAL TEA1 EAC1 BOTHEYES (15:36)
--- NOTE | 2021-08-01 17:08 | NUR ---
1445 PT ADMITTED FROM ED, ORIENTED TO ROOM SET UP AND SAFETY. CALL LIGHT IN REACH.
[2021-08-01] MEDS ORDERED: HYDHCL25 PO (17:55)
--- NOTE | 2021-08-01 19:20 | NUR ---
PT DISCHARGED ABOUT 1730 WITH DC INSTRUCTIONS, SON TO DRIVE HOME. WHEELCHAIR OUTSIDE. GIVEN ATARAX 25MG BEFORE DC HOME, DR ADVISED. STRESS TEST NEGATIVE. BELONGINGS SENT HOME WITH PT INCLUDING PHONE.
== END 2021-08-01 18:33 | disposition home or self-care (01) ==
LOC: ER 18:16 → ERHOLD 18:17 → MEDS 08-01 14:41
PROVIDERS: Emergency Medicine; Physician Assistant; Student in an Organized Health Care Education/Training Program; ADMIT Internal Medicine
DX: I48.91 Unspecified atrial fibrillation (principal); G40.909 Epilepsy, unspecified, not intractable, without status epilepticus; I11.0 Hypertensive heart disease with heart failure; I50.22 Chronic systolic (congestive) heart failure; I25.10 Atherosclerotic heart disease of native coronary artery without angina pectoris; R77.8 Other specified abnormalities of plasma proteins; I25.2 Old myocardial infarction; F41.9 Anxiety disorder, unspecified; I45.10 Unspecified right bundle-branch block; Z88.8 Allergy status to other drugs, medicaments and biological substances; Z95.1 Presence of aortocoronary bypass graft; Z87.891 Personal history of nicotine dependence; Z79.01 Long term (current) use of anticoagulants; Z20.822 Contact with and (suspected) exposure to COVID-19
CPT/HCPCS: 0241U; 36415; 71045; 78452; 80053; 80162; 82550; 83880; 84484; 85025; 93005; 93010; 93017; 99285-25; A9270; A9500; G0378; J0706; J2785

== ENCOUNTER 2021-08-06 20:03 | Emergency (ER) | payer OTHER ==
[~2021-08-06] VITALS: Ht 172.7 cm; Wt 80.3 kg
[~2021-08-06 20:03] MED LIST changes: +ALEVAZOL56.7 G1 TOP; +ARTIFICIAL TEA1 EAC1 BOTHEYES; +Acerola C500 MG PO; +Cranberry400 MG PO; +HYDHCL25 PO
[2021-08-06 20:22] LABS: BASOPHILS ABSOLUTE AUTO 0.07 K/mm3 (0.00-0.23); BASOPHILS PERCENT AUTO 1 % (0-2); EOSINOPHILS ABSOLUTE AUTO 0.17 K/mm3 (0.00-0.68); EOSINOPHILS PERCENT AUTO 2 % (0-6); Hematocrit 50.6 % (37.0-53.0); Hemoglobin 16.6 g/dL (13.5-17.5); IMMATURE GRAN ABSOLUTE AUTO 0.05 K/mm3 (0.00-0.10); IMMATURE GRAN PERCENT AUTO 0 % (0-1); LYMPHOCYTES ABSOLUTE AUTO 1.37 K/mm3 (0.84-5.20); LYMPHOCYTES PERCENT AUTO 12 % (21-46); MONOCYTES ABSOLUTE AUTO 0.91 K/mm3 (0.16-1.47); MONOCYTES PERCENT AUTO 8 % (4-13); Mean Corpuscular HGB 31.2 pg (26.0-34.0); Mean Corpuscular HGB Conc 32.8 g/dL (31.5-36.5); Mean Corpuscular Volume 95 fL (80-100); Mean Platelet Volume 10.3 fL (9.1-12.4); NEUTROPHILS ABSOLUTE AUTO 8.84 K/mm3 (1.96-9.15); NEUTROPHILS PERCENT AUTO 78 % (41-73); Platelet Count 234 K/mm3 (150-400); RDW Coefficient Variation 13.4 % (11.7-14.2); RDW Standard Deviation 46.8 fL (35.1-46.3); Red Blood Cell Count 5.32 M/mm3 (4.30-5.90); White Blood Cell Count 11.41 K/mm3 (4.00-11.30)
[2021-08-06 20:42] LABS: Albumin, Blood 3.5 g/dL (3.4-5.0); Albumin/Globulin Ratio 0.7 (0.8-1.8); Bilirubin, Total 0.7 mg/dL (0.1-1.0); Bun/Creatinine Ratio 20.7 (12.0-20.0); Calcium, Blood 9.2 mg/dL (8.5-10.1); Creatinine, Blood 1.21 mg/dL (0.60-1.20); Globulin, Blood 4.7 g/dL (2.2-4.0); Potassium, Blood 5.1 mmol/L (3.5-5.5); Total Protein, Blood 8.2 g/dL (6.4-8.2); Troponin I 0.08 ng/mL (0.000-0.040)
== END 2021-08-07 01:48 | disposition home or self-care (01) ==
LOC: ER 20:03
PROVIDERS: Student in an Organized Health Care Education/Training Program
DX: F41.9 Anxiety disorder, unspecified (principal); I48.91 Unspecified atrial fibrillation; I25.2 Old myocardial infarction; I11.0 Hypertensive heart disease with heart failure; I50.20 Unspecified systolic (congestive) heart failure; Z79.899 Other long term (current) drug therapy; Z88.8 Allergy status to other drugs, medicaments and biological substances
CPT/HCPCS: 71046; 80053; 83880; 84484; 85025; 93005; 93010; J2060

== ENCOUNTER 2021-10-06 04:58 | Observation (INO) | payer OTHER ==
[~2021-10-06] VITALS: Ht 172.7 cm; Wt 83.3 kg
[2021-10-06 05:17] LABS: BASOPHILS ABSOLUTE AUTO 0.06 K/mm3 (0.00-0.23); BASOPHILS PERCENT AUTO 1 % (0-2); EOSINOPHILS ABSOLUTE AUTO 0.19 K/mm3 (0.00-0.68); EOSINOPHILS PERCENT AUTO 2 % (0-6); Hematocrit 52.8 % (37.0-53.0); Hemoglobin 16.9 g/dL (13.5-17.5); IMMATURE GRAN ABSOLUTE AUTO 0.02 K/mm3 (0.00-0.10); IMMATURE GRAN PERCENT AUTO 0 % (0-1); LYMPHOCYTES PERCENT AUTO 16 % (21-46); MONOCYTES ABSOLUTE AUTO 0.79 K/mm3 (0.16-1.47); MONOCYTES PERCENT AUTO 10 % (4-13); Mean Corpuscular HGB 30.3 pg (26.0-34.0); Mean Corpuscular Volume 95 fL (80-100); Mean Platelet Volume 10.7 fL (9.1-12.4); NEUTROPHILS ABSOLUTE AUTO 5.94 K/mm3 (1.96-9.15); NEUTROPHILS PERCENT AUTO 72 % (41-73); Platelet Count 163 K/mm3 (150-400); RDW Coefficient Variation 13.9 % (11.7-14.2); RDW Standard Deviation 48.5 fL (35.1-46.3); Red Blood Cell Count 5.57 M/mm3 (4.30-5.90)
[2021-10-06 05:36] LABS: Alanine Aminotransfer (ALT/SGP 27 U/L (12-78); Albumin, Blood 3.6 g/dL (3.4-5.0); Albumin/Globulin Ratio 0.8 (0.8-1.8); Alk Phos 91 U/L (50-136); Anion Gap 5 mmol/L (6-16); Aspartate Aminotrans (AST/SGOT 24 U/L (12-37); Bilirubin, Total 0.9 mg/dL (0.1-1.0); Blood Urea Nitrogen 24 mg/dL (8-24); Bun/Creatinine Ratio 23.1 (12.0-20.0); CO2, Blood 27 mmol/L (21-32); Calcium, Blood 9.2 mg/dL (8.5-10.1); Chloride, Blood 108 mmol/L (98-108); Creatinine, Blood 1.04 mg/dL (0.60-1.20); Globulin, Blood 4.3 g/dL (2.2-4.0); Glomerular Filtration Rate >60 (60-); Glucose, Blood 117 mg/dL (70-99); Magnesium, Blood 2.4 mg/dL (1.6-2.4); Potassium, Blood 4.9 mmol/L (3.5-5.5); Sodium, Blood 140 mmol/L (136-145); Total Protein, Blood 7.9 g/dL (6.4-8.2)
[2021-10-06 06:35] LABS: Influenza A, PCR NEGATIVE (NEGATIVE); Influenza B, PCR NEGATIVE (NEGATIVE); Resp Syncytial Virus, PCR NEGATIVE (NEGATIVE); SARS-Cov-2 (COVID-19) PCR, MMC NEGATIVE (NEGATIVE)
[2021-10-06 06:52] LABS: CPK Creatine Kinase 85 U/L (39-308)
[2021-10-06 07:19] LABS: Digoxin (Lanoxin) 0.58 ug/mL (0.80-2.00)
[2021-10-06] MEDS ORDERED: SUPER BEETS (09:59)
[2021-10-06] MEDS ORDERED: FURO20 PO (12:15)
== END 2021-10-06 14:42 | disposition home or self-care (01) ==
LOC: ER 04:58 → MEDS 04:59
PROVIDERS: Student in an Organized Health Care Education/Training Program; ADMIT Internal Medicine
DX: I11.0 Hypertensive heart disease with heart failure (principal); I50.23 Acute on chronic systolic (congestive) heart failure; R07.9 Chest pain, unspecified; I48.91 Unspecified atrial fibrillation; G40.909 Epilepsy, unspecified, not intractable, without status epilepticus; I25.10 Atherosclerotic heart disease of native coronary artery without angina pectoris; F41.9 Anxiety disorder, unspecified; Z95.1 Presence of aortocoronary bypass graft; Z79.01 Long term (current) use of anticoagulants; Z87.891 Personal history of nicotine dependence; Z20.822 Contact with and (suspected) exposure to COVID-19
CPT/HCPCS: 0241U; 36415; 71045; 80053; 80162; 82550; 83735; 83880; 84484; 85025; 93005; 93010; A9270; J1940; J2060; J2405

== ENCOUNTER 2021-10-14 16:21 | Inpatient (IN) | payer OTHER ==
[~2021-10-14] VITALS: Ht 172.7 cm; Wt 86.2 kg
[~2021-10-14 16:21] MED LIST changes: +FURO20 PO; +SUPER BEETS
[2021-10-14 17:06] LABS: BASOPHILS ABSOLUTE AUTO 0.08 K/mm3 (0.00-0.23); BASOPHILS PERCENT AUTO 1 % (0-2); EOSINOPHILS ABSOLUTE AUTO 0.19 K/mm3 (0.00-0.68); EOSINOPHILS PERCENT AUTO 2 % (0-6); Hemoglobin 15.4 g/dL (13.5-17.5); IMMATURE GRAN ABSOLUTE AUTO 0.04 K/mm3 (0.00-0.10); IMMATURE GRAN PERCENT AUTO 0 % (0-1); LYMPHOCYTES ABSOLUTE AUTO 1.27 K/mm3 (0.84-5.20); LYMPHOCYTES PERCENT AUTO 13 % (21-46); MONOCYTES ABSOLUTE AUTO 1.06 K/mm3 (0.16-1.47); MONOCYTES PERCENT AUTO 11 % (4-13); Mean Corpuscular HGB 30.7 pg (26.0-34.0); Mean Corpuscular HGB Conc 32.1 g/dL (31.5-36.5); Mean Corpuscular Volume 96 fL (80-100); Mean Platelet Volume 11.1 fL (9.1-12.4); NEUTROPHILS ABSOLUTE AUTO 7.06 K/mm3 (1.96-9.15); NEUTROPHILS PERCENT AUTO 73 % (41-73); Platelet Count 197 K/mm3 (150-400); RDW Coefficient Variation 14.2 % (11.7-14.2); RDW Standard Deviation 49.9 fL (35.1-46.3); Red Blood Cell Count 5.01 M/mm3 (4.30-5.90)
[2021-10-14 17:15] LABS: Bun/Creatinine Ratio 22.4 (12.0-20.0); Creatinine, Blood 1.25 mg/dL (0.60-1.20); Magnesium, Blood 2.4 mg/dL (1.6-2.4); Potassium, Blood 5.7 mmol/L (3.5-5.5)
[2021-10-14 17:35] LABS: Calcium, Ionized (POC) 1.08 mmol/L (1.10-1.46); Chloride (POC) 109 mmol/L (98-108); Creatinine (POC) 1.1 mg/dL (0.8-1.3); Glucose (ISTAT POC) 101 mg/dL (70-99); Potassium (POC) 4.8 mmol/L (3.5-5.5); Sodium (POC) 142 mmol/L (135-148); Total CO2 (POC) 23 mmol/L (21-32)
[2021-10-14 17:40] LABS: International Normalized Ratio 1.31; Prothrombin Time Results 13.5 Sec (9.7-11.5)
[2021-10-14 18:20] LABS: Influenza A, PCR NEGATIVE (NEGATIVE); Influenza B, PCR NEGATIVE (NEGATIVE); Resp Syncytial Virus, PCR NEGATIVE (NEGATIVE); SARS-Cov-2 (COVID-19) PCR, MMC NEGATIVE (NEGATIVE)
--- NOTE | 2021-10-14 23:47 | NUR ---
Assumed care. Pt arrived from OR, brief report received from OR nurse. Pt supine in bed, on 02 via NC at 3 L/min. IV access in R/arm and L/arm. Dopamine running at 5 mcg/kg/min. Transvenous pacer inserted, R/femoral access. Pacer settings: rate 60, output 10, sens 2. VS stable, afib on monitor, rate 60-70. Will continue to monitor
[2021-10-15 01:53] LABS: Source, Urine Foley catheter
[2021-10-15 02:02] LABS: Bilirubin, Urine Neg (Neg); Blood, Urine 3+ (Neg); Glucose Qualitative, Urine Neg (Neg); Ketones, Urine Neg (Neg); Leukocyte Esterase, Urine Neg (Neg); Nitrite, Urine Neg (Neg); Protein, Urine 1+ (Neg); Urobilinogen, Urine NORM (Normal)
[2021-10-15 02:05] LABS: Appearance, Urine Clear (Clear); Color, Urine Yellow (P-Yellow)
[2021-10-15 02:10] LABS: Bacteria Not Seen /hpf; Mucus Light (0-Heavy); Red Blood Cells, Urine 25-50 /hpf (0-2); Squamous Epithelial Cells Rare /hpf (Few); White Blood Cells, Urine Not Seen /hpf (0-5)
[2021-10-15 04:04] LABS: Hematocrit 45.2 % (37.0-53.0); Hemoglobin 14.6 g/dL (13.5-17.5); Mean Corpuscular HGB 30.8 pg (26.0-34.0); Mean Corpuscular HGB Conc 32.3 g/dL (31.5-36.5); Mean Corpuscular Volume 95 fL (80-100); Mean Platelet Volume 10.8 fL (9.1-12.4); Platelet Count 152 K/mm3 (150-400); RDW Coefficient Variation 13.6 % (11.7-14.2); RDW Standard Deviation 48.1 fL (35.1-46.3); Red Blood Cell Count 4.74 M/mm3 (4.30-5.90); White Blood Cell Count 10.61 K/mm3 (4.00-11.30)
[2021-10-15 04:26] LABS: Anion Gap 6 mmol/L (6-16); Blood Urea Nitrogen 27 mg/dL (8-24); Bun/Creatinine Ratio 25.2 (12.0-20.0); CO2, Blood 27 mmol/L (21-32); Chloride, Blood 106 mmol/L (98-108); Creatinine, Blood 1.07 mg/dL (0.60-1.20); Glomerular Filtration Rate >60 (60-); Glucose, Blood 104 mg/dL (70-99); Potassium, Blood 4.3 mmol/L (3.5-5.5); Sodium, Blood 139 mmol/L (136-145)
--- NOTE | 2021-10-15 08:15 | NUR ---
ASSUMED CARE: REPORT RECEIVED FROM MARLIN Headley RN. ASSUMED CARE OF THIS PT AT APPROX 0700. ON ASSESSMENT, THE PT AWAKENS EASILY TO VERBAL STIMULUS & IS ALERT/ ORIENTED TO ALL. LS ARE CLEAR T/O, OCCASIONAL WHEEZING NOTED IN UPPER LOBES. PT ON 3L NC W/ O2 SATS > 95%. MONITOR SHOWING AFIB W/ BBB, HR 60-80s, BP STABLE. TV PACER REMAINS IN PLACE BUT IS TURNED OFF - SEE UPDATE NOTE. THE PT HAS NO GI COMPLAINTS & IS TOLERATING BREAKFAST WELL. MCBRIDE PATENT/ DRAINING RED-PINK URINE THAT BEGAN OCCURING AFTER PT PULLED AT CATHETER WHILE CONFUSED DURING ERP MANAGER. SKIN CONDITION OVERALL INTACT. TV PACER SITE TO RIGHT GROIN WNL; NO BLEEDING, BRUISING OR HEMATOMA FORMATION NOTED. PT's LEGS BILATERALLY HAVE SCALING, HARD SKIN NOTED & FAINT PEDAL/ POST-TIB PULSES. SOME SCABBING NOTED TO TOES ON BILATERAL FEET. WILL CONTINUE TO MONITOR & UPDATE NEEDED.
--- NOTE | 2021-10-15 09:10 | NUR ---
UDPATE / DR FALK: PROVIDER AT BEDSIDE THIS AM AT APPROX 0705. HE HAS TURNED THE TV PACER FOR THIS PT OFF AT THAT TIME. PT's RHYTHM IS AFIB W/ BBB, HR NOTED TO BE 60-80s. BP STABLE W/ SBP 130-140s. PROVIDER BACK AT BEDSIDE TO REMOVE PACER WIRE AT APPROX 0830, SHEATH REMAINS IN PLACE FOR THIS RN TO REMOVE. PT IS FINISHING BREAKFAST, WILL REMOVE SHEATH AFTER HE IS DONE. SHEATH REMOVED AT 0850 & MANUAL PRESSURE HELD FOR APPROX 5 MINS. NO BLEEDING OR HEMATOMA FORMATION NOTED AT/ AROUND THE SITE. TEGADERM CHG DRESSING PLACED & PT HAS OVERALL TOLERATED THE PROCEDURE WELL. HE DOES STATE SOME INCREASED DYSPNEA WHILE LYING FLAT, STS TAKING ALBUTEROL INHALER PRN AT HOME & THIS RN HAS NOTED SOME FAINT WHEEZING IN UPPER LOBES. O2 SATS > 95% ON 3L NC DURING THIS TIME.
--- NOTE | 2021-10-15 11:03 | NUR ---
Pt. is resting, but reponded to my room entrance. Pt. welocomed my visit. Pt. is unsettled by the prescription of one of his meds and their side effects. Listen empathetically, and seek to normalize the Pt. experience. Pt. verbalizes a problem with anxiety. Provide a calming presence. Pt. verbalized whether we might be able to provide him with a cross and chain. While I could not commit that we could provide that, I would see if there was one available. Developed rapport with Pt. Brad with Pt. Pt. displayed evidence of reduced anxiety and verbalised gratitude for the spiritual care visit.
[2021-10-15] MEDS ORDERED: ALBU90OI INH ×2 (11:11)
--- NOTE | 2021-10-15 11:30 | NUR ---
DR MEDLEY: THIS RN HAS CALLED DR MEDLEY IN REGARDS TO PT's HOME MEDICATIONS & REQUEST FOR STATUS CHANGE. ALBUTEROL INHALER ORDERED PRN WHEEZING/ SOB PER HOME DOSE & PT IS NOW MEDICAL W/ TELE STATUS, ORDERS PLACED.
--- NOTE | 2021-10-15 13:36 | NUR ---
Provided Pt. a temporary crucifix at his request. Pt. verbalized his gratitude.
--- NOTE | 2021-10-15 18:35 | NUR ---
SHIFT SUMMARY / TRANSFER TO MED FLOOR: NO ACUTE CHANGES SINCE PRIOR UPDATES. PT REMAINS A&O, PLEASANT & COOPERATIVE. LS CLEAR T/O, OCCASIONAL WHEEZING NOTED IN UPPER LOBES. PT ON 2L NC W/ O2 SATS > 95%. MONITOR SHOWS AFIB W/ HR 60-100s, INCREASED W/ EXERTION. BP STABLE. PT HAS NO GI COMPLAINTS, TOLERATING PO INTAKE WELL. VOIDS IN SMALL AMNTS W/O DIFFICULTY, DIURESIS PER EMAR. SKIN CONDITION OVERALL INTACT, Q2H REPOSITIONING TO MAINTAIN SKIN INTEGRITY. REPORT HAS BEEN GIVEN TO [facility] PEDERSEN TO ASSUME CARE ON MEDICAL FLOOR. PT TX OUT OF UNIT VIA BED AT APPROX 1840, ALL BELONGINGS & CHART TAKEN TO ROOM 339 W/ THE PT.
--- NOTE | 2021-10-15 20:03 | NUR ---
1805 RECEIVED PT TO RM 339 FROM ICU 14. PT ABLE TO TX SELF WITH 2P SBA. USING URINAL IN BED. YELLS OUT FOR NEEDS. A&O. REPORT GIVEN TO ONCOMING RN.
[2021-10-16 06:08] LABS: Anion Gap 5 mmol/L (6-16); Blood Urea Nitrogen 27 mg/dL (8-24); Bun/Creatinine Ratio 27.5 (12.0-20.0); CO2, Blood 30 mmol/L (21-32); Calcium, Blood 8.9 mg/dL (8.5-10.1); Chloride, Blood 101 mmol/L (98-108); Creatinine, Blood 0.98 mg/dL (0.60-1.20); Glomerular Filtration Rate >60 (60-); Glucose, Blood 124 mg/dL (70-99); Potassium, Blood 4.1 mmol/L (3.5-5.5); Sodium, Blood 136 mmol/L (136-145)
--- NOTE | 2021-10-16 17:36 | NUR ---
SUMMARY PT SITTING UP AT THE EDGE OF THE BED VISITING WITH HIS SON, PT HAS BEEN PLEASANT AND COOPERATIVE WITH CARE, UP WITH MIN ASSIST, PT HOPEFUL TO DC HOME TOMORROW, PT'S HEART RATE WAS ELEVATED THIS AM, PT ASYMPTOMATIC, NEW ORDERS AND NEW MEDS GIVEN, HEART RATE DOWN THIS EVENING, VSS, WILL CONT TO MONITOR
[2021-10-17 05:59] LABS: Anion Gap 6 mmol/L (6-16); Blood Urea Nitrogen 34 mg/dL (8-24); Bun/Creatinine Ratio 32.1 (12.0-20.0); CO2, Blood 31 mmol/L (21-32); Calcium, Blood 8.9 mg/dL (8.5-10.1); Chloride, Blood 98 mmol/L (98-108); Creatinine, Blood 1.06 mg/dL (0.60-1.20); Glomerular Filtration Rate >60 (60-); Glucose, Blood 95 mg/dL (70-99); Potassium, Blood 4.3 mmol/L (3.5-5.5); Sodium, Blood 135 mmol/L (136-145)
[2021-10-17 08:49] LABS: Digoxin (Lanoxin) 0.78 ug/mL (0.80-2.00)
[2021-10-17] MEDS ORDERED: METO25 PO ×2 (12:23)
--- NOTE | 2021-10-17 14:26 | NUR ---
Prior to D/C Pt is standing up and welcomes my visit. Pt. is pleasant and noticably excited about being able to go home. Discussed elements of anticipated D/C. Prayed with Pt. Pt. verbalized gratitude for his spiritual care visit.
--- NOTE | 2021-10-17 17:19 | NUR ---
SUMMARY PT AWAKE IN BED TALKING ON THE PHONE, PT HAS BEEN DISCHARGED AND IS WAITING FOR HIS RIDE, PT HAS BEEN PLEASANT AND COOPERATIVE WITH CARE, INDEP IN THE ROOM, WILL CONT TO MONITOR
--- NOTE | 2021-10-17 18:32 | NUR ---
PT TAKEN OUT SAFELY VIA WHEELCHAIR
[2021-11-23] MEDS ORDERED: LISI20 PO (10:00)
[2021-11-23] MEDS ORDERED: PREDNISOLONE ACETATE BOTHEYES (10:06)
[2021-11-23] MEDS ORDERED: ELIQUIS5 M3 PO (10:07)
== END 2021-10-17 18:07 | disposition home or self-care (01) | DRG 291 ==
LOC: ER 16:21 → ICUW 19:14 → MEDS 10-15 18:51
PROVIDERS: Internal Medicine; Student in an Organized Health Care Education/Training Program; ADMIT Internal Medicine
PROC: 5A1223Z Performance of Cardiac Pacing, Continuous (ICD-10-PCS; principal; 2021-10-14)
DX: I13.0 Hypertensive heart and chronic kidney disease with heart failure and stage 1 through stage 4 chronic kidney disease, or unspecified chronic kidney disease (principal); I50.23 Acute on chronic systolic (congestive) heart failure; J96.01 Acute respiratory failure with hypoxia; R57.0 Cardiogenic shock; Z20.822 Contact with and (suspected) exposure to COVID-19; I49.5 Sick sinus syndrome; E87.5 Hyperkalemia; N18.30 Chronic kidney disease, stage 3 unspecified; T44.7X5A Adverse effect of beta-adrenoreceptor antagonists, initial encounter; I48.91 Unspecified atrial fibrillation; I95.9 Hypotension, unspecified; I42.9 Cardiomyopathy, unspecified; I25.10 Atherosclerotic heart disease of native coronary artery without angina pectoris; G40.909 Epilepsy, unspecified, not intractable, without status epilepticus; Z88.8 Allergy status to other drugs, medicaments and biological substances; Z79.01 Long term (current) use of anticoagulants; Z79.899 Other long term (current) drug therapy; Z95.1 Presence of aortocoronary bypass graft; Z87.891 Personal history of nicotine dependence; Z98.890 Other specified postprocedural states
CPT/HCPCS: 0241U; 33210; 36415; 51702; 71045; 80047; 80048; 80162; 81001; 83735; 83880; 84484; 85014; 85025; 85027; 85610; 93005; 93010; 96365; 96375; 99152; 99285-25; A9270; C1894; J0461; J1160; J1265; J1644; J1940; J2060; J2250; J2405; J3010; J7040

== ENCOUNTER 2021-10-30 03:17 | Emergency (ER) | payer OTHER ==
[~2021-10-30] VITALS: Ht 172.7 cm; Wt 86.2 kg
[~2021-10-30 03:17] MED LIST changes: +METO25 PO
[2021-10-30 04:03] LABS: BASOPHILS ABSOLUTE AUTO 0.07 K/mm3 (0.00-0.23); BASOPHILS PERCENT AUTO 1 % (0-2); EOSINOPHILS ABSOLUTE AUTO 0.14 K/mm3 (0.00-0.68); EOSINOPHILS PERCENT AUTO 1 % (0-6); Hematocrit 50.1 % (37.0-53.0); Hemoglobin 16.5 g/dL (13.5-17.5); IMMATURE GRAN ABSOLUTE AUTO 0.05 K/mm3 (0.00-0.10); IMMATURE GRAN PERCENT AUTO 1 % (0-1); LYMPHOCYTES ABSOLUTE AUTO 1.11 K/mm3 (0.84-5.20); LYMPHOCYTES PERCENT AUTO 11 % (21-46); MONOCYTES ABSOLUTE AUTO 0.83 K/mm3 (0.16-1.47); MONOCYTES PERCENT AUTO 8 % (4-13); Mean Corpuscular HGB 30.9 pg (26.0-34.0); Mean Corpuscular HGB Conc 32.9 g/dL (31.5-36.5); Mean Corpuscular Volume 94 fL (80-100); Mean Platelet Volume 10.6 fL (9.1-12.4); NEUTROPHILS ABSOLUTE AUTO 7.72 K/mm3 (1.96-9.15); NEUTROPHILS PERCENT AUTO 78 % (41-73); Platelet Count 206 K/mm3 (150-400); RDW Coefficient Variation 13.8 % (11.7-14.2); RDW Standard Deviation 47.6 fL (35.1-46.3); Red Blood Cell Count 5.34 M/mm3 (4.30-5.90); White Blood Cell Count 9.92 K/mm3 (4.00-11.30)
[2021-10-30 04:35] LABS: Anion Gap 5 mmol/L (6-16); Blood Urea Nitrogen 30 mg/dL (8-24); Bun/Creatinine Ratio 27.5 (12.0-20.0); CO2, Blood 29 mmol/L (21-32); Calcium, Blood 9.4 mg/dL (8.5-10.1); Chloride, Blood 106 mmol/L (98-108); Creatinine, Blood 1.09 mg/dL (0.60-1.20); Digoxin (Lanoxin) 0.58 ug/mL (0.80-2.00); Glomerular Filtration Rate >60 (60-); Glucose, Blood 108 mg/dL (70-99); Potassium, Blood 4.8 mmol/L (3.5-5.5); Sodium, Blood 140 mmol/L (136-145)
[2021-11-23] MEDS ORDERED: LISI20 PO (10:00)
[2021-11-23] MEDS ORDERED: PRED FORTE5 ML BOTHEYES (10:06)
[2021-11-23] MEDS ORDERED: ELIQUIS5 M3 PO (10:07)
[2022-01-15] MEDS ORDERED: ASCO500 PO (11:48)
[2022-01-15] MEDS ORDERED: ALEVAZOL56.7 G1 TOP (11:49)
[2022-01-15] MEDS ORDERED: ARTIFICIAL TEA1 EAC1 BOTHEYES (11:50)
[2022-01-15] MEDS ORDERED: FISH OIL 1,2001 EAC7 PO (11:55)
[2022-01-15] MEDS ORDERED: HYDHCL25 PO (11:56)
[2022-01-15] MEDS ORDERED: ZADITOR5 M1 BOTHEYES (11:58)
[2022-01-15] MEDS ORDERED: METO25ER PO (13:27)
[2022-04-28] MEDS ORDERED: SILD50TA PO (10:44)
== END 2021-10-30 05:08 | disposition home or self-care (01) ==
LOC: ER 03:17
PROVIDERS: Emergency Medicine
DX: F41.9 Anxiety disorder, unspecified (principal); I48.91 Unspecified atrial fibrillation; I13.0 Hypertensive heart and chronic kidney disease with heart failure and stage 1 through stage 4 chronic kidney disease, or unspecified chronic kidney disease; N18.30 Chronic kidney disease, stage 3 unspecified; I50.9 Heart failure, unspecified; I25.10 Atherosclerotic heart disease of native coronary artery without angina pectoris; G40.909 Epilepsy, unspecified, not intractable, without status epilepticus; Z88.8 Allergy status to other drugs, medicaments and biological substances; Z79.899 Other long term (current) drug therapy; Z87.891 Personal history of nicotine dependence
CPT/HCPCS: 80048; 80162; 85025; 93005; 93010; 99284-25; A9270

== ENCOUNTER 2021-10-30 13:30 | Emergency (ER) | payer OTHER ==
[~2021-10-30] VITALS: Ht 172.7 cm; Wt 86.2 kg
[2021-11-23] MEDS ORDERED: LISI20 PO (10:00)
[2021-11-23] MEDS ORDERED: PRED FORTE5 ML BOTHEYES (10:06)
[2021-11-23] MEDS ORDERED: ELIQUIS5 M3 PO (10:07)
[2022-01-15] MEDS ORDERED: ASCO500 PO (11:48)
[2022-01-15] MEDS ORDERED: ALEVAZOL56.7 G1 TOP (11:49)
[2022-01-15] MEDS ORDERED: ARTIFICIAL TEA1 EAC1 BOTHEYES (11:50)
[2022-01-15] MEDS ORDERED: FISH OIL 1,2001 EAC7 PO (11:55)
[2022-01-15] MEDS ORDERED: HYDHCL25 PO (11:56)
[2022-01-15] MEDS ORDERED: ZADITOR5 M1 BOTHEYES (11:58)
[2022-01-15] MEDS ORDERED: METO25ER PO (13:27)
[2022-04-28] MEDS ORDERED: SILD50TA PO (10:44)
== END 2021-10-30 15:39 | disposition home or self-care (01) ==
LOC: ER 13:30
DX: S09.90XA Unspecified injury of head, initial encounter (principal); S51.812A Laceration without foreign body of left forearm, initial encounter; I13.0 Hypertensive heart and chronic kidney disease with heart failure and stage 1 through stage 4 chronic kidney disease, or unspecified chronic kidney disease; I50.9 Heart failure, unspecified; N18.30 Chronic kidney disease, stage 3 unspecified; V89.2XXA Person injured in unspecified motor-vehicle accident, traffic, initial encounter
CPT/HCPCS: 70450; 99284-25

== ENCOUNTER 2021-11-14 09:55 | Inpatient (IN) | payer OTHER ==
[~2021-11-14] VITALS: Ht 172.7 cm; Wt 89.4 kg
[2021-11-14 10:55] LABS: BASOPHILS ABSOLUTE AUTO 0.07 K/mm3 (0.00-0.23); BASOPHILS PERCENT AUTO 1 % (0-2); EOSINOPHILS ABSOLUTE AUTO 0.18 K/mm3 (0.00-0.68); EOSINOPHILS PERCENT AUTO 2 % (0-6); Hematocrit 48.1 % (37.0-53.0); Hemoglobin 15.7 g/dL (13.5-17.5); IMMATURE GRAN ABSOLUTE AUTO 0.03 K/mm3 (0.00-0.10); IMMATURE GRAN PERCENT AUTO 0 % (0-1); LYMPHOCYTES ABSOLUTE AUTO 1.07 K/mm3 (0.84-5.20); LYMPHOCYTES PERCENT AUTO 11 % (21-46); MONOCYTES ABSOLUTE AUTO 1.11 K/mm3 (0.16-1.47); MONOCYTES PERCENT AUTO 11 % (4-13); Mean Corpuscular HGB Conc 32.6 g/dL (31.5-36.5); Mean Corpuscular Volume 95 fL (80-100); Mean Platelet Volume 10.7 fL (9.1-12.4); NEUTROPHILS ABSOLUTE AUTO 7.64 K/mm3 (1.96-9.15); NEUTROPHILS PERCENT AUTO 76 % (41-73); Platelet Count 162 K/mm3 (150-400); RDW Coefficient Variation 13.7 % (11.7-14.2); RDW Standard Deviation 48.2 fL (35.1-46.3); Red Blood Cell Count 5.06 M/mm3 (4.30-5.90)
[2021-11-14 11:29] LABS: Alanine Aminotransfer (ALT/SGP 21 U/L (12-78); Albumin, Blood 3.2 g/dL (3.4-5.0); Albumin/Globulin Ratio 0.8 (0.8-1.8); Alk Phos 90 U/L (50-136); Anion Gap 7 mmol/L (6-16); Aspartate Aminotrans (AST/SGOT 17 U/L (12-37); Bilirubin, Total 0.8 mg/dL (0.1-1.0); Blood Urea Nitrogen 21 mg/dL (8-24); Bun/Creatinine Ratio 21.1 (12.0-20.0); CO2, Blood 26 mmol/L (21-32); Calcium, Blood 8.9 mg/dL (8.5-10.1); Chloride, Blood 107 mmol/L (98-108); Creatinine, Blood 0.99 mg/dL (0.60-1.20); Globulin, Blood 4.2 g/dL (2.2-4.0); Glomerular Filtration Rate >60 (60-); Glucose, Blood 104 mg/dL (70-99); Sodium, Blood 140 mmol/L (136-145); Total Protein, Blood 7.4 g/dL (6.4-8.2)
[2021-11-14 12:53] LABS: Digoxin (Lanoxin) 0.92 ug/mL (0.80-2.00)
[2021-11-14] MEDS ORDERED: DILT180 PO (13:04)
[2021-11-14] MEDS ORDERED: KETO.5OPSO (13:05)
[2021-11-14] MEDS ORDERED: OCUFLOX5 M8 LEFTEYE (13:08)
--- NOTE | 2021-11-14 17:12 | NUR ---
DAY SHIFT SUMMARY ER ADMIT FOR SOB WITH CHF. 71 YR OLD MALE. PLEASANT. PT IS ABLE TO AMBULATE WITH CANE AND ONE PERSON ASSIST. LIVES ALONE. USES URINAL AT BEDSIDE. TELE READING AFIB AT 120. SLIGHT COGNITIVE DELAY APPEARS TO BE PRESENT, PT HAS RAPID SPEECH BUT WHAT IS SAID DOES NOT ALWAYS GO ALONG WITH CONVERSATION. EDEMA PRESENT TO LOWER EXTREMITIES. CALL LIGHT WITHIN REACH. PT ORIENTED TO ROOM, SURROUNDING AREA, AND CALL LIGHT. INITIAL ADMITTING ASSESSMENT PERFORMED. HOME MEDS REVIEWED WITH PT.
--- NOTE | 2021-11-15 02:45 | NUR ---
0300 CHRISTIANO PARKS NOTIFIED- PT COMPLAINS OF SLIGHT ONSET CHEST PAIN LASTING 30 SECONDS DESCRIBING TIGHTNESS. PT REPORTS FEELING THIS SENSATION IS CAUSED BY HIGH LEVELS OF ANXIETY AT THIS TIME WELL SHORTNESS OF BREATH. TO REVIEW CHART AND PLACE ORDERS
[2021-11-15 04:47] LABS: Hemoglobin 15.4 g/dL (13.5-17.5); Mean Corpuscular HGB 30.9 pg (26.0-34.0); Mean Corpuscular HGB Conc 32.8 g/dL (31.5-36.5); Mean Corpuscular Volume 94 fL (80-100); Mean Platelet Volume 10.8 fL (9.1-12.4); Platelet Count 148 K/mm3 (150-400); RDW Coefficient Variation 13.6 % (11.7-14.2); Red Blood Cell Count 4.98 M/mm3 (4.30-5.90); White Blood Cell Count 7.16 K/mm3 (4.00-11.30)
[2021-11-15 05:14] LABS: Alanine Aminotransfer (ALT/SGP 20 U/L (12-78); Albumin, Blood 3.2 g/dL (3.4-5.0); Albumin/Globulin Ratio 0.8 (0.8-1.8); Alk Phos 90 U/L (50-136); Anion Gap 6 mmol/L (6-16); Aspartate Aminotrans (AST/SGOT 20 U/L (12-37); Bilirubin, Total 0.8 mg/dL (0.1-1.0); Blood Urea Nitrogen 20 mg/dL (8-24); CO2, Blood 31 mmol/L (21-32); Calcium, Blood 9.4 mg/dL (8.5-10.1); Chloride, Blood 102 mmol/L (98-108); Creatinine, Blood 1.05 mg/dL (0.60-1.20); Glomerular Filtration Rate >60 (60-); Glucose, Blood 112 mg/dL (70-99); Magnesium, Blood 2.2 mg/dL (1.6-2.4); Potassium, Blood 3.9 mmol/L (3.5-5.5); Sodium, Blood 139 mmol/L (136-145); Total Protein, Blood 7.2 g/dL (6.4-8.2)
--- NOTE | 2021-11-15 05:26 | NUR ---
SHIFT SUMMARY: PT A/OX3 DISORIENTED TO TIME. THROUGHOUT NIGHT PATIENT REMAINED RESTLESS, URINATING FREQUENTLY. PT INDEPENDENT USE OF URINAL WHILE SITTING ON SIDE OF BED. CONTINUED SHORTNESS OF BREATH, ROOM AIR. PT COMPLAINED OF 30 SEC TIGHTNESS IN CHEST WHILE HAVING HIGH LEVELS OF ANXIETY PT REPORTS FEELING IF THIS IS ASSOSICATED WITH SHORTNESS OF BREATH (MD NOTIFIED). PT REPORTS CHEST TIGHTNESS AND ANXIETY RELIEVED WITH "COMFORT FOOD". BED ALARM ACTIVATED, BED IN LOW POSITION, CALL CARREON &ASSISTIVE DEVICES IN REACH.
--- NOTE | 2021-11-15 12:13 | NUR ---
Pt. is awake and sitting up on the side of his bed. Pt. is unsettled about his hospitalization and the implications of his poor health habits. Normalize the Pt. experience, and re-establish rapport as Pt. is a recent re-admit. Explore Pts. luis alberto and practice, and facilitate a life review. Pt. displayed evidence of agreement and hope. Prayed with Pt. Pt. verbalized gratitude for the spiritual care visit.
--- NOTE | 2021-11-15 16:31 | NUR ---
DAY SHIFT SUMMARY 71 YR OLD MALE ADMITTED FOR ACUTE ON CHRONIC HEART FAILURE. PT ON 2L O2 NC. PT HAD AND EPISODE OF 32 BEAT RUN OF V-TACH TODAY BUT WAS ASYMPTOMATIC, MD AWARE. PT HAS BEEN IN AND OUT OF V-TACH THIS SHIFT, CHRONIC AFIB. CALL LIGHT WITHIN REACH AND ABLE TO CALL APPROPRIATE. PT SEEMS TO ME MILDLY CONFUSED AT TIMES.
--- NOTE | 2021-11-16 04:02 | NUR ---
SHIFT SUMMARY ADMITTED FOR ACUTE ON CHRONIC CHF EXACERBATION. FULL CODE. PLAN IS FOR ECHO TODAY. HE IS ON 2 LPM O2. 2 GRAM LOW NA+ DIET. HE IS INDEPENDENT W/CANE. COGNITIVE DEFICIT OF SOME KIND NOTED. TELEMETRY: AFIB @ 90-100 BPM. HE IS CONTINENT.
[2021-11-16 05:12] LABS: Hematocrit 44.3 % (37.0-53.0); Hemoglobin 14.5 g/dL (13.5-17.5); Mean Corpuscular HGB 30.8 pg (26.0-34.0); Mean Corpuscular HGB Conc 32.7 g/dL (31.5-36.5); Mean Corpuscular Volume 94 fL (80-100); Mean Platelet Volume 10.5 fL (9.1-12.4); Platelet Count 144 K/mm3 (150-400); RDW Coefficient Variation 13.4 % (11.7-14.2); RDW Standard Deviation 46.1 fL (35.1-46.3); Red Blood Cell Count 4.71 M/mm3 (4.30-5.90); White Blood Cell Count 7.41 K/mm3 (4.00-11.30)
[2021-11-16 05:34] LABS: Anion Gap 6 mmol/L (6-16); Blood Urea Nitrogen 24 mg/dL (8-24); Bun/Creatinine Ratio 22.4 (12.0-20.0); CO2, Blood 31 mmol/L (21-32); Calcium, Blood 8.9 mg/dL (8.5-10.1); Chloride, Blood 101 mmol/L (98-108); Creatinine, Blood 1.07 mg/dL (0.60-1.20); Glomerular Filtration Rate >60 (60-); Glucose, Blood 116 mg/dL (70-99); Potassium, Blood 3.6 mmol/L (3.5-5.5); Sodium, Blood 138 mmol/L (136-145)
--- NOTE | 2021-11-16 16:17 | NUR ---
PT AWAKE AT START OF SHIFT. PLEASANT AND CO-OP WITH CARE. NO C/O. UP WITH SBA TO BTHRM AND LATER TO SHOWER. PT USING CANE AT BASELINE IN AND AT HOME. PT REPORTING THAT HE FELT MUCH BETTER NOW THAN WHEN HE CAME IN. LASIX GIVEN PER EMAR. PT REPORTED THAT HE WAS NO LONGER GOING TO EAT PIZZA AND SALT. BLE'S VERY RED WITH DRY PEELING SKIN. DR BARKSDALE HERE TO SEE PT AND DISCUSS PLAN OF CARE. D/C ORDERS PLACED. PT WANTING TO GO HOME. NOTIFIED FRIENDS TO PICK HIM UP. D/C INSTRUCTIONS REVIEWED WITH PT; VERBALIZED UNDERSTANDING. PT ASSISTED OUT VIA W/C WITH BELONGINGS AND CANE IN HAND.
[2021-11-23] MEDS ORDERED: LISI20 PO (10:00)
[2021-11-23] MEDS ORDERED: PREDNISOLONE ACETATE BOTHEYES (10:06)
[2021-11-23] MEDS ORDERED: ELIQUIS5 M3 PO (10:07)
== END 2021-11-16 14:53 | disposition home or self-care (01) | DRG 291 ==
LOC: ER 09:55 → MEDS 09:56 → ER 09:56 → MEDS 09:56
PROVIDERS: Emergency Medicine; Internal Medicine; Nurse Practitioner Acute Care; Physician Assistant; ADMIT Family Medicine
DX: I11.0 Hypertensive heart disease with heart failure (principal); I50.23 Acute on chronic systolic (congestive) heart failure; I48.20 Chronic atrial fibrillation, unspecified; Z88.8 Allergy status to other drugs, medicaments and biological substances; I25.10 Atherosclerotic heart disease of native coronary artery without angina pectoris; G40.909 Epilepsy, unspecified, not intractable, without status epilepticus; Z98.890 Other specified postprocedural states; Z95.1 Presence of aortocoronary bypass graft; Z79.899 Other long term (current) drug therapy; I08.3 Combined rheumatic disorders of mitral, aortic and tricuspid valves; N18.30 Chronic kidney disease, stage 3 unspecified; F41.9 Anxiety disorder, unspecified; R79.89 Other specified abnormal findings of blood chemistry
CPT/HCPCS: 36415; 71046; 80048; 80053; 80162; 83735; 83880; 84484; 85025; 85027; 93005; 93010; 93308; 94760; 96374; 96376; 99285-25; A9270; G0378; J1940

== ENCOUNTER 2021-11-21 11:51 | Day surgery (SDC) | payer OTHER ==
[~2021-11-21] VITALS: Ht 167.6 cm; Wt 75.1 kg
[~2021-11-21 11:51] MED LIST changes: +KETO.5OPSO; +OCUFLOX5 M8 LEFTEYE
--- NOTE | 2021-11-21 12:56 | NUR ---
11/21/21 1256 AUDREY GALE TETRACAINE DROP INSTILLED AT 1245 PLEDGETT INSERTED AT 1250
--- NOTE | 2021-11-21 14:30 | NUR ---
11/21/[address] AMIN AWARE OF PT'S BLOOD PRESSURE AND HEART RATE. PT HAS A CARDIOLOGY APPOINTMENT SCHEDULED IN DECEMBER, CONFIRMED WITH CARDIOLOGY. HE WILL CALL TO SEE IF HE CAN BE SEEN SOONER THAN THAT. PT APPOINTMENT CHANGED WITH DR. AMIN TO 1045 TO ACCOMADATED ACCOUNTANT TAX.
[2021-11-23] MEDS ORDERED: LISI20 PO (10:00)
[2021-11-23] MEDS ORDERED: PREDNISOLONE ACETATE BOTHEYES (10:06)
[2021-11-23] MEDS ORDERED: ELIQUIS5 M3 PO (10:07)
== END 2021-11-21 14:30 | disposition home or self-care (01) ==
LOC: ORSCSDS 11:51
PROVIDERS: Ophthalmology
PROC: 08RK3JZ Replacement of Left Lens with Synthetic Substitute, Percutaneous Approach (ICD-10-PCS; principal; 2021-11-21 13:30)
DX: H25.13 Age-related nuclear cataract, bilateral (principal); H21.81 Floppy iris syndrome; H21.542 Posterior synechiae (iris), left eye; I27.20 Pulmonary hypertension, unspecified; I25.2 Old myocardial infarction; I25.10 Atherosclerotic heart disease of native coronary artery without angina pectoris; I63.9 Cerebral infarction, unspecified; R06.02 Shortness of breath; I10 Essential (primary) hypertension; G47.33 Obstructive sleep apnea (adult) (pediatric); I48.91 Unspecified atrial fibrillation; Z87.891 Personal history of nicotine dependence; Z79.01 Long term (current) use of anticoagulants; Z79.899 Other long term (current) drug therapy
CPT/HCPCS: J2001; J2250; J3010; J3301; J7040; V2632

== ENCOUNTER 2021-12-12 11:39 | Day surgery (SDC) | payer OTHER ==
[~2021-12-12] VITALS: Ht 172.7 cm; Wt 78.9 kg
[~2021-12-12 11:39] MED LIST changes: +ELIQUIS5 M3 PO; +PREDNISOLONE ACETATE BOTHEYES
--- NOTE | 2021-12-12 12:13 | NUR ---
12/12/21 1213 Mary Clements CALL LIGHT WITHIN REACH. QUIQUE AT 1150 AND MIKAL AT 1151
== END 2021-12-12 13:52 | disposition home or self-care (01) ==
LOC: ORSCSDS 11:39
PROVIDERS: Ophthalmology
PROC: 08RJ3JZ Replacement of Right Lens with Synthetic Substitute, Percutaneous Approach (ICD-10-PCS; principal; 2021-12-12 14:15)
DX: H25.11 Age-related nuclear cataract, right eye (principal); H21.81 Floppy iris syndrome; H21.541 Posterior synechiae (iris), right eye; Z79.01 Long term (current) use of anticoagulants; Z79.899 Other long term (current) drug therapy; I42.9 Cardiomyopathy, unspecified; I48.91 Unspecified atrial fibrillation; I50.9 Heart failure, unspecified; R06.02 Shortness of breath; I25.10 Atherosclerotic heart disease of native coronary artery without angina pectoris; R56.9 Unspecified convulsions
CPT/HCPCS: J2001; J2250; J3010; J3301; J7040; V2632

== ENCOUNTER 2021-12-27 04:14 | Inpatient (IN) | payer OTHER ==
[~2021-12-27] VITALS: Ht 172.7 cm; Wt 79.3 kg
[2021-12-27 04:34] LABS: BASOPHILS ABSOLUTE AUTO 0.07 K/mm3 (0.00-0.23); BASOPHILS PERCENT AUTO 1 % (0-2); EOSINOPHILS ABSOLUTE AUTO 0.23 K/mm3 (0.00-0.68); EOSINOPHILS PERCENT AUTO 2 % (0-6); Hematocrit 53.9 % (37.0-53.0); Hemoglobin 17.7 g/dL (13.5-17.5); IMMATURE GRAN ABSOLUTE AUTO 0.03 K/mm3 (0.00-0.10); IMMATURE GRAN PERCENT AUTO 0 % (0-1); LYMPHOCYTES ABSOLUTE AUTO 1.33 K/mm3 (0.84-5.20); LYMPHOCYTES PERCENT AUTO 13 % (21-46); MONOCYTES ABSOLUTE AUTO 0.76 K/mm3 (0.16-1.47); MONOCYTES PERCENT AUTO 7 % (4-13); Mean Corpuscular HGB 30.5 pg (26.0-34.0); Mean Corpuscular HGB Conc 32.8 g/dL (31.5-36.5); Mean Corpuscular Volume 93 fL (80-100); Mean Platelet Volume 10.6 fL (9.1-12.4); NEUTROPHILS ABSOLUTE AUTO 7.79 K/mm3 (1.96-9.15); NEUTROPHILS PERCENT AUTO 76 % (41-73); Platelet Count 184 K/mm3 (150-400); RDW Coefficient Variation 13.4 % (11.7-14.2); RDW Standard Deviation 45.2 fL (35.1-46.3); White Blood Cell Count 10.21 K/mm3 (4.00-11.30)
[2021-12-27 05:09] LABS: Alanine Aminotransfer (ALT/SGP 31 U/L (12-78); Albumin, Blood 3.7 g/dL (3.4-5.0); Albumin/Globulin Ratio 0.8 (0.8-1.8); Alk Phos 96 U/L (50-136); Anion Gap 8 mmol/L (6-16); Aspartate Aminotrans (AST/SGOT 25 U/L (12-37); Bilirubin, Total 0.9 mg/dL (0.1-1.0); Blood Urea Nitrogen 22 mg/dL (8-24); Bun/Creatinine Ratio 21.8 (12.0-20.0); CO2, Blood 26 mmol/L (21-32); Calcium, Blood 9.8 mg/dL (8.5-10.1); Chloride, Blood 107 mmol/L (98-108); Creatinine, Blood 1.01 mg/dL (0.60-1.20); Digoxin (Lanoxin) 0.69 ug/mL (0.80-2.00); Globulin, Blood 4.7 g/dL (2.2-4.0); Glomerular Filtration Rate 79 (60-); Glucose, Blood 125 mg/dL (70-99); Magnesium, Blood 2.6 mg/dL (1.6-2.4); Potassium, Blood 4.8 mmol/L (3.5-5.5); Sodium, Blood 141 mmol/L (136-145); Total Protein, Blood 8.4 g/dL (6.4-8.2)
--- NOTE | 2021-12-27 17:49 | NUR ---
SHIFT SUMMARY PATIENT ADMITTED FROM ED AT 1035. PIVOT TRANSFER WITH ONE PERSON ASSIST FROM RNEY TO BED. PATIENT A/O, AFIB WITH RATE 90-110. CARDIZEM DRIP DISCONTINUED. PO METOPROLOL GIVEN WITH IV LASIX CHARTED. PATIENT'S RATE CONTROLLED, REMAINS IN AFIB WHICH IS STATED BASELINE. STEADY URINE OUTPUT UTILIZING URINAL AT BEDSIDE WITH STANDBY ASSIST. ONE INCONTINENT EPISODE DOCUMENTED. PATIENT DESATS BELOW 90% WHILE ASLEEP, 2L 02 VIA NC APPLIED. STATUS CHANGE TO MEDICAL WITH TELEMETRY. WILL CONTINUE TO MONITOR AND REPORT TO ONCOMING RN.
--- NOTE | 2021-12-27 18:40 | NUR ---
Spiritual Care Request by Pt. Pt. is resting in med but is roused when I enter the room. Pt. welcomes my visit. Pt. is a re-admission and is known to this certified maintenance welder. Pt. is pleasant, but unsettled about being identified with anxiety. Pt. verbalizes that the ND has diagnosed the Anxiety and he is receiving medication for it. Pt. also verbalizes that he has experienced Afib. Listen empathetically with a calming presence. Establish rapport. Pt. displays evidence of confidence in his care and a willingness to make better life choices. Prayed with Pt. Pt. verbalized gratitude for the spiritual care visit.
--- NOTE | 2021-12-27 19:30 | NUR ---
PT REPORT RECIEVED. PT IN BED AND IS ASLEEP. VSS. ASSUMED PT CARE. PT CONTINUES TO BE IN A-FIB ON THE MONITOR WITH GOOD RATE CONTROL.
--- NOTE | 2021-12-28 05:36 | NUR ---
SHIFT SUMMERY: PT HAS BEEN ORIENTED THOUGHOUT THE SHIFT AND BP AND SPO2 HAV REMAINED STABLE. PT ON 2LPM NC OVERNINGHT DUE TO BLAIR. PT CONSISTANTLY DENIES COMPLAINTS AND IS ABLE TO AMBULATE WITH SOME SLIGHT ATAXIA WHICH IS A RESULT OF A PRIOR STROKE AND FOR WHICH HE SEEMS ABLE TO COMPENSATE VERY WELL. PT HAS SLEPT FAIRLY WELL THROUGH OUT THE NIGHT. PT'S HR HAS REMAINED IRREGULAR THROUGH THE NIGHT AND THE RATE HAS INCREASED SINCE THE LAST PO DOSE OF LOPRESSOR. HR NOW 80-140'S AND REMAINS IN A-FIB, SBP 110-120'S.
--- NOTE | 2021-12-28 07:55 | NUR ---
ASSUMPTION OF CARE RECEIVED REPORT FROM MARLYN STAUFFER AT 0710. ASSUMED CARE OF PATIENT. PATIENT SITTING UP IN CHAIR WITH EYES CLOSED, EASILY AWOKE TO VERBAL STIMULI. DENIED DISCOMFORTS. HEART RATE 110-120'S, AFIB. ADMINISTERED PO MEDICATIONS WITH INCREASED METOPROLOL DOSE CHARTED. PATIENT WITH SP02 ABOVE 95% ON 2L 02 VIA NC, REMOVED 02 AND WILL MONITOR SATS ON ROOM AIR. EDUCATED PATIENT REGARDING LASIX AND UTILIZING CALL LIGHT FOR HELP WITH BATHROOM ASSISTANCE. BREAKFAST TRAY PROVIDED, PATIENT INDEPENDENTLY EATING AT THIS TIME. CALL LIGHT IN REACH.
[2021-12-28 08:29] LABS: Calcium, Blood 9.7 mg/dL (8.5-10.1)
--- NOTE | 2021-12-28 17:51 | NUR ---
HEART RATE HEART RATE TRENDING UP THROUGH AFTERNOON, REACHING HIGH 130'S. DR. LARSON ROUNDED AND GAVE ORDERS TO INCREASE PO METOPROLOL TO 50MG BID WITH FIRST DOSE STAT. MEDICATED PATIENT CHARTED. CURRENTLY HEART RATE IS 80-110.
[2021-12-29 04:00] LABS: Bun/Creatinine Ratio 31.4 (12.0-20.0); Calcium, Blood 9.6 mg/dL (8.5-10.1); Creatinine, Blood 0.89 mg/dL (0.60-1.20); Potassium, Blood 4.6 mmol/L (3.5-5.5)
--- NOTE | 2021-12-29 06:08 | NUR ---
SHIFT SUMMERY NO ACUTE CHANGES OVERNIGHT
--- NOTE | 2021-12-29 09:33 | NUR ---
alert and oriented, ate breakfast, makes needs known, call light with in reach, dr heath rounded this am, metoprol dose increased, dr heath wants a return call at 1300 after the second dose of metoprolol to see if patient can discharge
[2021-12-29] MEDS ORDERED: FURO40 PO (13:36)
[2021-12-29] MEDS ORDERED: METO50 PO (14:01)
== END 2021-12-29 16:45 | disposition home or self-care (01) | DRG 291 ==
LOC: ER 04:14 → ICUW 05:36
PROVIDERS: Emergency Medicine; Hospitalist; Student in an Organized Health Care Education/Training Program; ADMIT Family Medicine
DX: I13.0 Hypertensive heart and chronic kidney disease with heart failure and stage 1 through stage 4 chronic kidney disease, or unspecified chronic kidney disease (principal); I50.23 Acute on chronic systolic (congestive) heart failure; N18.30 Chronic kidney disease, stage 3 unspecified; I25.10 Atherosclerotic heart disease of native coronary artery without angina pectoris; I42.9 Cardiomyopathy, unspecified; G40.909 Epilepsy, unspecified, not intractable, without status epilepticus; I48.91 Unspecified atrial fibrillation; E87.5 Hyperkalemia; F41.9 Anxiety disorder, unspecified; J45.909 Unspecified asthma, uncomplicated; I45.10 Unspecified right bundle-branch block; F43.10 Post-traumatic stress disorder, unspecified; Z95.0 Presence of cardiac pacemaker; Z95.1 Presence of aortocoronary bypass graft; Z98.890 Other specified postprocedural states; Z87.891 Personal history of nicotine dependence; Z79.01 Long term (current) use of anticoagulants; Z79.899 Other long term (current) drug therapy
CPT/HCPCS: 36415; 71045; 80048; 80053; 80162; 83735; 83880; 84484; 85025; 93005; 93010; 96365; 96366; 96375; 96376; 99285-25; A9270; J1940; J2060

== ENCOUNTER 2022-01-26 02:54 | Emergency (ER) | payer OTHER ==
[~2022-01-26] VITALS: Ht 172.7 cm; Wt 78.9 kg
[~2022-01-26 02:54] MED LIST changes: +FISH OIL 1,2001 EAC7 PO; +FURO40 PO; +METO50 PO; +PRED FORTE5 ML BOTHEYES; -PREDNISOLONE ACETATE BOTHEYES
[2022-01-26 03:09] LABS: BASOPHILS ABSOLUTE AUTO 0.07 K/mm3 (0.00-0.23); BASOPHILS PERCENT AUTO 1 % (0-2); EOSINOPHILS ABSOLUTE AUTO 0.25 K/mm3 (0.00-0.68); EOSINOPHILS PERCENT AUTO 3 % (0-6); Hematocrit 48.8 % (37.0-53.0); Hemoglobin 16.4 g/dL (13.5-17.5); IMMATURE GRAN ABSOLUTE AUTO 0.04 K/mm3 (0.00-0.10); IMMATURE GRAN PERCENT AUTO 0 % (0-1); LYMPHOCYTES PERCENT AUTO 14 % (21-46); MONOCYTES ABSOLUTE AUTO 0.89 K/mm3 (0.16-1.47); MONOCYTES PERCENT AUTO 10 % (4-13); Mean Corpuscular HGB 30.8 pg (26.0-34.0); Mean Corpuscular HGB Conc 33.6 g/dL (31.5-36.5); Mean Corpuscular Volume 92 fL (80-100); Mean Platelet Volume 10.9 fL (9.1-12.4); NEUTROPHILS ABSOLUTE AUTO 6.81 K/mm3 (1.96-9.15); NEUTROPHILS PERCENT AUTO 73 % (41-73); Platelet Count 174 K/mm3 (150-400); RDW Coefficient Variation 14.1 % (11.7-14.2); RDW Standard Deviation 47.3 fL (35.1-46.3); Red Blood Cell Count 5.33 M/mm3 (4.30-5.90); White Blood Cell Count 9.36 K/mm3 (4.00-11.30)
[2022-01-26 03:42] LABS: Alanine Aminotransfer (ALT/SGP 28 U/L (12-78); Albumin, Blood 3.3 g/dL (3.4-5.0); Albumin/Globulin Ratio 0.8 (0.8-1.8); Alk Phos 91 U/L (50-136); Anion Gap 7 mmol/L (6-16); Aspartate Aminotrans (AST/SGOT 33 U/L (12-37); Bilirubin, Total 0.9 mg/dL (0.1-1.0); Blood Urea Nitrogen 28 mg/dL (8-24); Bun/Creatinine Ratio 25.7 (12.0-20.0); CO2, Blood 24 mmol/L (21-32); Calcium, Blood 9.3 mg/dL (8.5-10.1); Chloride, Blood 107 mmol/L (98-108); Creatinine, Blood 1.09 mg/dL (0.60-1.20); Digoxin (Lanoxin) 0.82 ug/mL (0.80-2.00); Globulin, Blood 4.2 g/dL (2.2-4.0); Glomerular Filtration Rate 72 (60-); Glucose, Blood 131 mg/dL (70-99); Potassium, Blood 4.7 mmol/L (3.5-5.5); Sodium, Blood 138 mmol/L (136-145); Total Protein, Blood 7.5 g/dL (6.4-8.2)
== END 2022-01-26 04:08 | disposition home or self-care (01) ==
LOC: ER 02:54
PROVIDERS: Emergency Medicine
DX: I13.0 Hypertensive heart and chronic kidney disease with heart failure and stage 1 through stage 4 chronic kidney disease, or unspecified chronic kidney disease (principal); N18.30 Chronic kidney disease, stage 3 unspecified; I50.9 Heart failure, unspecified; I48.91 Unspecified atrial fibrillation; I25.10 Atherosclerotic heart disease of native coronary artery without angina pectoris; G40.909 Epilepsy, unspecified, not intractable, without status epilepticus; Z95.1 Presence of aortocoronary bypass graft; Z95.0 Presence of cardiac pacemaker; Z87.891 Personal history of nicotine dependence; Z79.899 Other long term (current) drug therapy; Z79.01 Long term (current) use of anticoagulants; Z88.8 Allergy status to other drugs, medicaments and biological substances
CPT/HCPCS: 36415; 71045; 80053; 80162; 84484; 85025; 93005; 93010; 94640; 94664

== ENCOUNTER 2022-02-20 12:48 | Emergency (ER) | payer OTHER ==
[~2022-02-20] VITALS: Ht 177.8 cm; Wt 74.8 kg
[2022-02-20 13:51] LABS: BASOPHILS ABSOLUTE AUTO 0.08 K/mm3 (0.00-0.23); BASOPHILS PERCENT AUTO 1 % (0-2); EOSINOPHILS ABSOLUTE AUTO 0.19 K/mm3 (0.00-0.68); EOSINOPHILS PERCENT AUTO 2 % (0-6); Hematocrit 51.6 % (37.0-53.0); Hemoglobin 17.1 g/dL (13.5-17.5); IMMATURE GRAN ABSOLUTE AUTO 0.02 K/mm3 (0.00-0.10); IMMATURE GRAN PERCENT AUTO 0 % (0-1); LYMPHOCYTES ABSOLUTE AUTO 1.48 K/mm3 (0.84-5.20); LYMPHOCYTES PERCENT AUTO 16 % (21-46); MONOCYTES ABSOLUTE AUTO 0.77 K/mm3 (0.16-1.47); MONOCYTES PERCENT AUTO 8 % (4-13); Mean Corpuscular HGB 30.8 pg (26.0-34.0); Mean Corpuscular HGB Conc 33.1 g/dL (31.5-36.5); Mean Corpuscular Volume 93 fL (80-100); Mean Platelet Volume 10.2 fL (9.1-12.4); NEUTROPHILS ABSOLUTE AUTO 6.61 K/mm3 (1.96-9.15); NEUTROPHILS PERCENT AUTO 72 % (41-73); Platelet Count 214 K/mm3 (150-400); RDW Coefficient Variation 14.4 % (11.7-14.2); RDW Standard Deviation 49.6 fL (35.1-46.3); Red Blood Cell Count 5.55 M/mm3 (4.30-5.90); White Blood Cell Count 9.15 K/mm3 (4.00-11.30)
[2022-02-20 14:45] LABS: Albumin, Blood 3.5 g/dL (3.4-5.0); Albumin/Globulin Ratio 0.7 (0.8-1.8); Bilirubin, Total 0.8 mg/dL (0.1-1.0); Calcium, Blood 9.6 mg/dL (8.5-10.1); Creatinine, Blood 1.04 mg/dL (0.60-1.20); Globulin, Blood 4.9 g/dL (2.2-4.0); Potassium, Blood 4.7 mmol/L (3.5-5.5); Total Protein, Blood 8.4 g/dL (6.4-8.2)
== END 2022-02-20 17:43 | disposition home or self-care (01) ==
LOC: ER 12:48
PROVIDERS: Student in an Organized Health Care Education/Training Program
DX: R06.02 Shortness of breath (principal); I87.2 Venous insufficiency (chronic) (peripheral); I10 Essential (primary) hypertension; I25.2 Old myocardial infarction; Z87.891 Personal history of nicotine dependence; Z79.899 Other long term (current) drug therapy; Z79.01 Long term (current) use of anticoagulants; Z88.8 Allergy status to other drugs, medicaments and biological substances
CPT/HCPCS: 71046; 80053; 84484; 85025; 93005; 93010

== ENCOUNTER 2022-03-19 05:17 | Observation (INO) | payer OTHER ==
[~2022-03-19] VITALS: Ht 167.6 cm; Wt 79.0 kg
[2022-03-19 05:50] LABS: BASOPHILS ABSOLUTE AUTO 0.07 K/mm3 (0.00-0.23); BASOPHILS PERCENT AUTO 1 % (0-2); EOSINOPHILS ABSOLUTE AUTO 0.15 K/mm3 (0.00-0.68); EOSINOPHILS PERCENT AUTO 2 % (0-6); Hematocrit 51.6 % (37.0-53.0); Hemoglobin 17.4 g/dL (13.5-17.5); IMMATURE GRAN ABSOLUTE AUTO 0.02 K/mm3 (0.00-0.10); IMMATURE GRAN PERCENT AUTO 0 % (0-1); LYMPHOCYTES ABSOLUTE AUTO 1.49 K/mm3 (0.84-5.20); LYMPHOCYTES PERCENT AUTO 20 % (21-46); MONOCYTES ABSOLUTE AUTO 0.82 K/mm3 (0.16-1.47); MONOCYTES PERCENT AUTO 11 % (4-13); Mean Corpuscular HGB 31.3 pg (26.0-34.0); Mean Corpuscular HGB Conc 33.7 g/dL (31.5-36.5); Mean Corpuscular Volume 93 fL (80-100); Mean Platelet Volume 12.3 fL (9.1-12.4); NEUTROPHILS ABSOLUTE AUTO 5.04 K/mm3 (1.96-9.15); NEUTROPHILS PERCENT AUTO 66 % (41-73); Platelet Count 214 K/mm3 (150-400); RDW Coefficient Variation 14.9 % (11.7-14.2); Red Blood Cell Count 5.56 M/mm3 (4.30-5.90); White Blood Cell Count 7.59 K/mm3 (4.00-11.30)
[2022-03-19 05:58] LABS: Alanine Aminotransfer (ALT/SGP 23 U/L (12-78); Albumin, Blood 3.5 g/dL (3.4-5.0); Albumin/Globulin Ratio 0.9 (0.8-1.8); Alk Phos 81 U/L (50-136); Anion Gap 7 mmol/L (6-16); Aspartate Aminotrans (AST/SGOT 26 U/L (12-37); Bilirubin, Total 1.3 mg/dL (0.1-1.0); Blood Urea Nitrogen 36 mg/dL (8-24); Bun/Creatinine Ratio 26.7 (12.0-20.0); CO2, Blood 25 mmol/L (21-32); Calcium, Blood 9.5 mg/dL (8.5-10.1); Chloride, Blood 109 mmol/L (98-108); Creatinine, Blood 1.35 mg/dL (0.60-1.20); Globulin, Blood 4.1 g/dL (2.2-4.0); Glomerular Filtration Rate 56 (60-); Glucose, Blood 117 mg/dL (70-99); Magnesium, Blood 2.3 mg/dL (1.6-2.4); Potassium, Blood 4.5 mmol/L (3.5-5.5); Sodium, Blood 141 mmol/L (136-145); Total Protein, Blood 7.6 g/dL (6.4-8.2)
[2022-03-19 06:38] LABS: Digoxin (Lanoxin) 0.24 ug/mL (0.80-2.00)
--- NOTE | 2022-03-19 18:33 | NUR ---
PT SUMMARY: PT ARRIVED IN THE ROOM FROM [facility], REPORT RECEIVED FROM LAUREL STAUFFER. PT WAS ABLE TO STAND AND TRANSFER TO PCU BED, ASSISTED. PT IS ALERT AND ORIENTED X3, VERY ANXIOUS GETS TACHYPNEIC AND C/O NOT GETTING ANY AIR WHEN ANXIETY ATTACK HITS. PT IS HERE FOR AFIB RVR VITALS HRR STAYED 80-100'S DIGOXIN LOADING DOSE X2 WAS GIVEN, BP SYSTOLIC 115-130'S, SATS ABOVE 95% ON 2L OF O2, AFEBRILE, DENIES CHEST PAIN/PRESSURE. PT CAN MOVE SLEF IN BED, USES URINAL FOR VOIDING, PT ON DIURETICS. BILATERAL LE WITH PURPLE DISCOLORATION/POOR CIRCULATION WHEN LEGS ARE NOT ELEVATED BOTH PEDAL PULSES VIA DOPPLER. LEGS ELEVATED IN PILLOWS, PT WAS ENCOURAGED TOO. NO ISSUES WITH FOOD AND FLUID INTAKE. PT NOW RESTING IN BED, PT CALL LIGHTS IN REACH, ABLE TO MAKE NEEDS KNOWN, WILL REPORT TO ONCOMING SHIFT
[2022-03-19 23:42] LABS: Albumin, Blood 3.6 g/dL (3.4-5.0); Albumin/Globulin Ratio 0.8 (0.8-1.8); Bilirubin, Total 1.1 mg/dL (0.1-1.0); Calcium, Blood 9.6 mg/dL (8.5-10.1); Creatinine, Blood 1.67 mg/dL (0.60-1.20); Globulin, Blood 4.4 g/dL (2.2-4.0); Magnesium, Blood 2.5 mg/dL (1.6-2.4); Potassium, Blood 4.7 mmol/L (3.5-5.5)
[2022-03-20 06:09] LABS: Digoxin (Lanoxin) 0.89 ug/mL (0.80-2.00)
[2022-03-20] MEDS ORDERED: Acetaminophen650 M1 (14:20)
[2022-03-20] MEDS ORDERED: ALBU90OI INH (15:00)
[2022-03-20] MEDS ORDERED: ARTIFICIAL TEA1 EAC1 BOTHEYES (15:01)
[2022-03-20] MEDS ORDERED: ALEVAZOL56.7 G1 TOP (15:02)
[2022-03-20] MEDS ORDERED: ASCO500 PO (15:03)
[2022-03-20] MEDS ORDERED: ZADITOR5 M1 BOTHEYES (15:03)
--- NOTE | 2022-03-20 18:00 | NUR ---
PT REPORTS INTERMITTENT WORSENING OF SOB WHICH RESOLVES QUICKLY WITHOUT INTERVENTION. PT WAS UP TO D/C HOME TODAY, BUT PER HOME O2 EVAL PT REQUIRE 2L O2 AT REST AND 3L O2 WITH ACTIVITY, [facility] WITH [facility]2 TODAY. PT WAS MADE MEDICAL STATUS WITH TELE AND IS AWAITING BED ON MEDICAL FLOOR. PT OTHERWISE A/O X3. HE ANSWERS QUESTIONS APPRORIATELY IN FULL SENTENCES. HAS MOMENTS OF ANXIETY AND FORGETS TO USE CALL LIGHT AND BEGINS SCREAMING OUT.
--- NOTE | 2022-03-21 05:53 | NUR ---
SHIFT SUMMARY PT ALERT AND ORIENTED. AFEBRILE. HR AFIB 80-100'S. ON 2L NC SATS OVER 92%. BP STABLE. WILL BECOME SHORT OF BREATH WITH EPISODES OF ANXIETY WELL WHEN EATING. CAN WALK TO BATHROOM W/ FWW AND ASSIST. OTHERWISE VOIDS WITH BEDSIDE URINAL. NO C/O PAIN OR DISCOMFORT. SLEEPING WITH CALL ALARM AT SIDE, WILL CONTINUE TO MONITOR UNTIL REPORT GIVEN TO DAYSHIFT RN
--- NOTE | 2022-03-21 11:00 | NUR ---
Pt. is sitting up in a chair awaiting his ride for discharge and welcomes my visit. Pt. is pleasant and chatty. Re-establish rapport and get caught up on Pts. life story as this supervisor cutting and boning had this Pt. during a previous hospitalization. Pt. displays evidence of both awareness and lonliness. Prayed for Pt. Pt. verbalized gratitude for the spiritual care visit.
--- NOTE | 2022-03-21 18:01 | NUR ---
PT'S D/C HAS BEEN POSTPONED UNTIL 1999 TONIGHT WHEN HOME O2 CAN ARRIVE. PT STS THAT HIS ROOMMATE VERONIQUE WILL PROVIDE RIDE HOME. [facility], [facility] PT DOES NOT HAVE COVERAGE FOR TRANSPORT. PT HAS BEEN AGITATED T/O THE DAY, OFTEN TO DOORWAY SCREAMING AT STAFF R/T HIS DISCHARGE. PT IS CALM AND COOPERATIVE WHILE BEING UPDATED ON PENDING D/C HOME
== END 2022-03-21 20:38 | disposition home or self-care (01) ==
LOC: ER 05:17 → PCU 05:18
PROVIDERS: Emergency Medicine; Family Medicine; Nurse Practitioner Acute Care; ADMIT Internal Medicine
DX: I48.91 Unspecified atrial fibrillation (principal); I11.0 Hypertensive heart disease with heart failure; I50.22 Chronic systolic (congestive) heart failure; I25.10 Atherosclerotic heart disease of native coronary artery without angina pectoris; Z88.8 Allergy status to other drugs, medicaments and biological substances; F41.9 Anxiety disorder, unspecified; F43.10 Post-traumatic stress disorder, unspecified; G40.909 Epilepsy, unspecified, not intractable, without status epilepticus; Z95.1 Presence of aortocoronary bypass graft; Z91.14 Patient's other noncompliance with medication regimen; Z79.01 Long term (current) use of anticoagulants
CPT/HCPCS: 36415; 71045; 80053; 80162; 83735; 83880; 84484; 85025; 93005; 93010; 94761; 96374; 96375; 96376; 99285-25; A9270; J1160; J1940

== ENCOUNTER 2022-04-06 16:50 | Inpatient (IN) | payer OTHER ==
[~2022-04-06] VITALS: Ht 172.7 cm; Wt 79.0 kg
[~2022-04-06 16:50] MED LIST changes: +Acetaminophen650 M1
[2022-04-06 17:30] LABS: BASOPHILS ABSOLUTE AUTO 0.06 K/mm3 (0.00-0.23); BASOPHILS PERCENT AUTO 1 % (0-2); EOSINOPHILS ABSOLUTE AUTO 0.15 K/mm3 (0.00-0.68); EOSINOPHILS PERCENT AUTO 2 % (0-6); Hematocrit 52.3 % (37.0-53.0); Hemoglobin 17.5 g/dL (13.5-17.5); IMMATURE GRAN ABSOLUTE AUTO 0.03 K/mm3 (0.00-0.10); IMMATURE GRAN PERCENT AUTO 0 % (0-1); LYMPHOCYTES ABSOLUTE AUTO 1.02 K/mm3 (0.84-5.20); LYMPHOCYTES PERCENT AUTO 10 % (21-46); MONOCYTES ABSOLUTE AUTO 0.69 K/mm3 (0.16-1.47); MONOCYTES PERCENT AUTO 7 % (4-13); Mean Corpuscular HGB 31.2 pg (26.0-34.0); Mean Corpuscular HGB Conc 33.5 g/dL (31.5-36.5); Mean Corpuscular Volume 93 fL (80-100); Mean Platelet Volume 11.2 fL (9.1-12.4); NEUTROPHILS ABSOLUTE AUTO 7.93 K/mm3 (1.96-9.15); NEUTROPHILS PERCENT AUTO 80 % (41-73); Platelet Count 202 K/mm3 (150-400); Red Blood Cell Count 5.61 M/mm3 (4.30-5.90); White Blood Cell Count 9.88 K/mm3 (4.00-11.30)
[2022-04-06 17:51] LABS: Albumin, Blood 3.3 g/dL (3.4-5.0); Albumin/Globulin Ratio 0.9 (0.8-1.8); Bilirubin, Total 1.6 mg/dL (0.1-1.0); Bun/Creatinine Ratio 28.4 (12.0-20.0); Calcium, Blood 9.7 mg/dL (8.5-10.1); Creatinine, Blood 1.41 mg/dL (0.60-1.20); Globulin, Blood 3.8 g/dL (2.2-4.0); Total Protein, Blood 7.1 g/dL (6.4-8.2)
[2022-04-06 18:19] LABS: Magnesium, Blood 2.2 mg/dL (1.6-2.4)
[2022-04-06 18:21] LABS: Thyroid Stimulating Hormone 2.08 uIU/mL (0.360-4.800)
[2022-04-07 00:18] LABS: International Normalized Ratio 1.73; Prothrombin Time Results 17.5 Sec (9.7-11.5)
[2022-04-07 00:20] LABS: CPK Creatine Kinase 64 U/L (39-308)
[2022-04-07 00:36] LABS: Anion Gap 11 mmol/L (6-16); Blood Urea Nitrogen 42 mg/dL (8-24); Bun/Creatinine Ratio 26.2 (12.0-20.0); CO2, Blood 22 mmol/L (21-32); Chloride, Blood 106 mmol/L (98-108); Digoxin (Lanoxin) 0.61 ug/mL (0.80-2.00); Glomerular Filtration Rate 45 (60-); Glucose, Blood 160 mg/dL (70-99); Potassium, Blood 5.1 mmol/L (3.5-5.5); Sodium, Blood 139 mmol/L (136-145)
[2022-04-07 01:43] LABS: BASOPHILS ABSOLUTE AUTO 0.04 K/mm3 (0.00-0.23); BASOPHILS PERCENT AUTO 0 % (0-2); EOSINOPHILS ABSOLUTE AUTO 0.05 K/mm3 (0.00-0.68); EOSINOPHILS PERCENT AUTO 1 % (0-6); Hematocrit 53.8 % (37.0-53.0); Hemoglobin 17.9 g/dL (13.5-17.5); IMMATURE GRAN ABSOLUTE AUTO 0.03 K/mm3 (0.00-0.10); IMMATURE GRAN PERCENT AUTO 0 % (0-1); LYMPHOCYTES ABSOLUTE AUTO 0.68 K/mm3 (0.84-5.20); LYMPHOCYTES PERCENT AUTO 7 % (21-46); MONOCYTES ABSOLUTE AUTO 0.74 K/mm3 (0.16-1.47); MONOCYTES PERCENT AUTO 7 % (4-13); Mean Corpuscular HGB 31.2 pg (26.0-34.0); Mean Corpuscular HGB Conc 33.3 g/dL (31.5-36.5); Mean Corpuscular Volume 94 fL (80-100); Mean Platelet Volume 11.1 fL (9.1-12.4); NEUTROPHILS ABSOLUTE AUTO 8.93 K/mm3 (1.96-9.15); NEUTROPHILS PERCENT AUTO 85 % (41-73); Platelet Count 215 K/mm3 (150-400); RDW Standard Deviation 48.5 fL (35.1-46.3); Red Blood Cell Count 5.74 M/mm3 (4.30-5.90); White Blood Cell Count 10.47 K/mm3 (4.00-11.30)
[2022-04-07 02:04] LABS: Albumin, Blood 3.3 g/dL (3.4-5.0); Albumin/Globulin Ratio 0.9 (0.8-1.8); Bilirubin, Total 1.5 mg/dL (0.1-1.0); Bun/Creatinine Ratio 26.1 (12.0-20.0); Calcium, Blood 9.5 mg/dL (8.5-10.1); Creatinine, Blood 1.76 mg/dL (0.60-1.20); Globulin, Blood 3.7 g/dL (2.2-4.0); Potassium, Blood 5.1 mmol/L (3.5-5.5)
--- NOTE | 2022-04-07 04:40 | NUR ---
SHIFT SUMMARY: ADMITTED PT TO PCU 2 AT APPROXIMATELY 0030. TRANSFERED TO BED VIA SLIDER SHEET. PT IS ORIENTED TO PERSON, PLACE, AND LOCATION. REORIENTED TO TIME AND EVENT. PT DROWSY INITIALLY ARRIVING ON UNIT BUT ABLE TO AROUSE. DENIES HAVING ANY CHEST PAIN AFTER CARDIOVERSION IN ED. STATES HE STILL HAS SOB BUT SATS AT 98% ON 3LPM. PT REPORTS USING 3 LPM AT BASELINE. HR LABILE BETWEEN SB IN THE 50 TO 120'S IN A-FIB. NO COMPLAINTS OF CHEST PAIN WITH A-FIB. BP STABLE. HEPRIN GTT RUNNING AT 15 PER ORDERS.
[2022-04-07 08:42] LABS: CPK Creatine Kinase 49 U/L (39-308)
[2022-04-07] MEDS ORDERED: ENTRESTO 24 MG1 EAC2 PO (10:36)
--- NOTE | 2022-04-07 12:09 | NUR ---
HEPARIN STOPPED AT 0915 PER PHARMACY ORDER. WILL RESTART IN ONE HOUR
--- NOTE | 2022-04-07 18:04 | NUR ---
SHIFT SUMMARY PT PLEASANT AND COOPERATIVE DURING INTERACTIONS. A&O X4. HR 60'S 70'S, AT TIMES SINUS CRISTIN, SBP 120'S -130'S, O2 >92% ON 3-4 L NC. PT REPORTS MILD SOB THROUGHOUT SHIFT. SKIN COOL TO THE TOUCH, PT STATES THIS IS "NORMAL" FOR HIM. LEFT LEG EDEMA WITH SOME WARMTH AND REDNESS; PT ALSO STATES THIS IS "NORMAL FOR THE LAST SEVERAL MONTHS". PT DENIES TENDERNESS OR PAIN IN LEG. ECCHYMOTIC/BRUISING SCATTERED THROUGHOUT AND SOME SCABS NOTED ON RIGHT LEG. HEPARIN INFUSING PER EMAR. CARDIOLOGY CONSULTED THIS AM.
--- NOTE | 2022-04-07 18:14 | NUR ---
HEPARIN STOPPED PER PROVIDER ORDER DUE TO CHANGE IN MEDICATIONS; SEE EMAR
--- NOTE | 2022-04-07 20:09 | NUR ---
ASSUMED PT CARE FROM OSCAR STAUFFER ON . PT RESTING IN BED WITH EYES CLOSED, APPEARS TO BE SLEEPING BUT EASILY AROUSABLE. DENIES ANY SOB OR CHEST PAIN AT THIS TIME. HR A-FIB IN THE 120'S AT THIS TIME, WILL MONITOR. OTHER VSS. WARM BLANKET PROVIDED FOR PT COMFORT. DENIES FURTHER NEEDS AT THIS TIME. CALL LIGHT IN REACH.
--- NOTE | 2022-04-07 23:17 | NUR ---
DR. READ CALLED FOR HR SUSTAINING IN THE 140 A-FIB. ORDERS RECEIVED FOR LOPRESSOR PUSH.
[2022-04-08 01:58] LABS: BASOPHILS ABSOLUTE AUTO 0.06 K/mm3 (0.00-0.23); BASOPHILS PERCENT AUTO 1 % (0-2); EOSINOPHILS ABSOLUTE AUTO 0.21 K/mm3 (0.00-0.68); EOSINOPHILS PERCENT AUTO 3 % (0-6); Hematocrit 43.6 % (37.0-53.0); Hemoglobin 14.7 g/dL (13.5-17.5); IMMATURE GRAN ABSOLUTE AUTO 0.02 K/mm3 (0.00-0.10); IMMATURE GRAN PERCENT AUTO 0 % (0-1); LYMPHOCYTES ABSOLUTE AUTO 0.91 K/mm3 (0.84-5.20); LYMPHOCYTES PERCENT AUTO 12 % (21-46); MONOCYTES ABSOLUTE AUTO 0.68 K/mm3 (0.16-1.47); MONOCYTES PERCENT AUTO 9 % (4-13); Mean Corpuscular HGB 31.2 pg (26.0-34.0); Mean Corpuscular HGB Conc 33.7 g/dL (31.5-36.5); Mean Corpuscular Volume 93 fL (80-100); Mean Platelet Volume 11.2 fL (9.1-12.4); NEUTROPHILS ABSOLUTE AUTO 5.73 K/mm3 (1.96-9.15); NEUTROPHILS PERCENT AUTO 75 % (41-73); Platelet Count 156 K/mm3 (150-400); RDW Coefficient Variation 13.6 % (11.7-14.2); RDW Standard Deviation 46.4 fL (35.1-46.3); Red Blood Cell Count 4.71 M/mm3 (4.30-5.90); White Blood Cell Count 7.61 K/mm3 (4.00-11.30)
--- NOTE | 2022-04-08 02:04 | NUR ---
TWO DOSES OF METROPROLOL GIVEN WITH MINIMAL EFFECT. BP LOW. DR. READ CALLED TO INFROMED OF LOW BP AND MINIMAL RESULT OF HR. ORDER FOR DIGOXIN RECEIVED AND GIVEN. WILL MONITOR.
[2022-04-08 02:17] LABS: Albumin, Blood 2.7 g/dL (3.4-5.0); Albumin/Globulin Ratio 0.9 (0.8-1.8); Bilirubin, Total 0.9 mg/dL (0.1-1.0); Bun/Creatinine Ratio 27.3 (12.0-20.0); Calcium, Blood 8.7 mg/dL (8.5-10.1); Creatinine, Blood 1.54 mg/dL (0.60-1.20); Globulin, Blood 3.1 g/dL (2.2-4.0); Potassium, Blood 4.4 mmol/L (3.5-5.5); Total Protein, Blood 5.8 g/dL (6.4-8.2)
[2022-04-08] MEDS ORDERED: TORSE20 PO (12:39)
[2022-04-08] MEDS ORDERED: AMIODARONE HCL PO (12:43)
[2022-04-08] MEDS ORDERED: Amiodarone HCl200 MG PO (12:43)
[2022-04-08] MEDS ORDERED: JARDIANCE25 MG PO (12:45)
== END 2022-04-08 13:07 | disposition hospice, home (50) | DRG 280 ==
LOC: ER 16:50 → PCU 16:51
PROVIDERS: Family Medicine; Student in an Organized Health Care Education/Training Program; ADMIT Internal Medicine
PROC: 5A2204Z Restoration of Cardiac Rhythm, Single (ICD-10-PCS; principal; 2022-04-07)
DX: I48.0 Paroxysmal atrial fibrillation (principal); I21.A1 Myocardial infarction type 2; I50.23 Acute on chronic systolic (congestive) heart failure; I13.0 Hypertensive heart and chronic kidney disease with heart failure and stage 1 through stage 4 chronic kidney disease, or unspecified chronic kidney disease; N17.9 Acute kidney failure, unspecified; I42.9 Cardiomyopathy, unspecified; R77.8 Other specified abnormalities of plasma proteins; I25.10 Atherosclerotic heart disease of native coronary artery without angina pectoris; F41.9 Anxiety disorder, unspecified; N18.31 Chronic kidney disease, stage 3a; I95.9 Hypotension, unspecified; G40.909 Epilepsy, unspecified, not intractable, without status epilepticus; E87.5 Hyperkalemia; F43.10 Post-traumatic stress disorder, unspecified; E78.00 Pure hypercholesterolemia, unspecified; Z86.79 Personal history of other diseases of the circulatory system; Z88.8 Allergy status to other drugs, medicaments and biological substances; Z79.01 Long term (current) use of anticoagulants; Z87.891 Personal history of nicotine dependence; Z79.899 Other long term (current) drug therapy; Z79.51 Long term (current) use of inhaled steroids; Z79.811 Long term (current) use of aromatase inhibitors; Z95.1 Presence of aortocoronary bypass graft
CPT/HCPCS: 36415; 71045; 80048; 80053; 80162; 82550; 83735; 83880; 84443; 84484; 85025; 85610; 85730; 92960; 93005; 93010; 94760; 96374-59; 96376; 96376-59; 99291-25; A9270; G0378; J0282; J1160; J1644; J1940; J7030; J7040; J7120

== ENCOUNTER 2022-10-23 15:24 | Emergency (ER) | payer OTHER ==
[~2022-10-23] VITALS: Ht 172.7 cm; Wt 79.8 kg
[~2022-10-23 15:24] MED LIST changes: +AMIODARONE HCL PO; +ENTRESTO 24 MG1 EAC2 PO; +JARDIANCE25 MG PO; +SILD50TA PO; +TORSE20 PO
[2022-10-23 16:15] LABS: BASOPHILS ABSOLUTE AUTO 0.05 K/mm3 (0.00-0.23); BASOPHILS PERCENT AUTO 1 % (0-2); EOSINOPHILS ABSOLUTE AUTO 0.13 K/mm3 (0.00-0.68); EOSINOPHILS PERCENT AUTO 1 % (0-6); Hematocrit 45.8 % (37.0-53.0); Hemoglobin 15.3 g/dL (13.5-17.5); IMMATURE GRAN ABSOLUTE AUTO 0.02 K/mm3 (0.00-0.10); IMMATURE GRAN PERCENT AUTO 0 % (0-1); LYMPHOCYTES ABSOLUTE AUTO 1.07 K/mm3 (0.84-5.20); LYMPHOCYTES PERCENT AUTO 12 % (21-46); MONOCYTES ABSOLUTE AUTO 1.03 K/mm3 (0.16-1.47); MONOCYTES PERCENT AUTO 12 % (4-13); Mean Corpuscular HGB 30.7 pg (26.0-34.0); Mean Corpuscular HGB Conc 33.4 g/dL (31.5-36.5); Mean Corpuscular Volume 92 fL (80-100); NEUTROPHILS ABSOLUTE AUTO 6.69 K/mm3 (1.96-9.15); NEUTROPHILS PERCENT AUTO 74 % (41-73); Platelet Count 149 K/mm3 (150-400); RDW Coefficient Variation 13.2 % (11.7-14.2); RDW Standard Deviation 44.4 fL (35.1-46.3); Red Blood Cell Count 4.99 M/mm3 (4.30-5.90); White Blood Cell Count 8.99 K/mm3 (4.00-11.30)
[2022-10-23 16:42] LABS: Albumin, Blood 3.3 g/dL (3.4-5.0); Albumin/Globulin Ratio 0.9 (0.8-1.8); Bilirubin, Total 0.9 mg/dL (0.1-1.0); Bun/Creatinine Ratio 27.7 (12.0-20.0); Calcium, Blood 9.1 mg/dL (8.5-10.1); Creatinine, Blood 1.12 mg/dL (0.60-1.20); Globulin, Blood 3.8 g/dL (2.2-4.0); Potassium, Blood 4.5 mmol/L (3.5-5.5); Total Protein, Blood 7.1 g/dL (6.4-8.2)
== END 2022-10-23 19:18 | disposition home or self-care (01) ==
LOC: ER 15:24
PROVIDERS: Student in an Organized Health Care Education/Training Program
DX: I48.91 Unspecified atrial fibrillation (principal); F43.10 Post-traumatic stress disorder, unspecified; I42.9 Cardiomyopathy, unspecified; Z88.8 Allergy status to other drugs, medicaments and biological substances; Z79.899 Other long term (current) drug therapy; I50.9 Heart failure, unspecified; G40.909 Epilepsy, unspecified, not intractable, without status epilepticus; I25.10 Atherosclerotic heart disease of native coronary artery without angina pectoris; N18.30 Chronic kidney disease, stage 3 unspecified; I13.0 Hypertensive heart and chronic kidney disease with heart failure and stage 1 through stage 4 chronic kidney disease, or unspecified chronic kidney disease; Z87.891 Personal history of nicotine dependence
CPT/HCPCS: 71045; 80053; 84484; 85025; 93005; 93010; 96374; 96375; 99284-25; J1940

== ENCOUNTER 2022-12-04 15:32 | Emergency (ER) | payer OTHER ==
[~2022-12-04] VITALS: Ht 172.7 cm; Wt 76.2 kg
[2022-12-04 16:07] LABS: BASOPHILS ABSOLUTE AUTO 0.08 K/mm3 (0.00-0.23); BASOPHILS PERCENT AUTO 1 % (0-2); EOSINOPHILS ABSOLUTE AUTO 0.33 K/mm3 (0.00-0.68); EOSINOPHILS PERCENT AUTO 4 % (0-6); Hemoglobin 16.1 g/dL (13.5-17.5); IMMATURE GRAN ABSOLUTE AUTO 0.01 K/mm3 (0.00-0.10); IMMATURE GRAN PERCENT AUTO 0 % (0-1); LYMPHOCYTES ABSOLUTE AUTO 0.95 K/mm3 (0.84-5.20); LYMPHOCYTES PERCENT AUTO 13 % (21-46); MONOCYTES ABSOLUTE AUTO 0.78 K/mm3 (0.16-1.47); MONOCYTES PERCENT AUTO 10 % (4-13); Mean Corpuscular HGB Conc 34.3 g/dL (31.5-36.5); Mean Corpuscular Volume 90 fL (80-100); Mean Platelet Volume 10.8 fL (9.1-12.4); NEUTROPHILS ABSOLUTE AUTO 5.46 K/mm3 (1.96-9.15); NEUTROPHILS PERCENT AUTO 72 % (41-73); Platelet Count 185 K/mm3 (150-400); RDW Coefficient Variation 14.3 % (11.7-14.2); RDW Standard Deviation 47.3 fL (35.1-46.3); White Blood Cell Count 7.61 K/mm3 (4.00-11.30)
[2022-12-04 16:23] LABS: Albumin, Blood 3.2 g/dL (3.4-5.0); Albumin/Globulin Ratio 0.8 (0.8-1.8); Bun/Creatinine Ratio 18.7 (12.0-20.0); Calcium, Blood 9.3 mg/dL (8.5-10.1); Creatinine, Blood 1.23 mg/dL (0.60-1.20); Globulin, Blood 3.9 g/dL (2.2-4.0); Potassium, Blood 4.3 mmol/L (3.5-5.5); Total Protein, Blood 7.1 g/dL (6.4-8.2)
[2022-12-04 16:58] LABS: Magnesium, Blood 2.2 mg/dL (1.6-2.4)
[2022-12-04 17:00] LABS: Thyroid Stimulating Hormone 0.971 uIU/mL (0.360-4.800)
[2022-12-04 17:45] VITALS: BP 103/84
== END 2022-12-04 17:58 | disposition home or self-care (01) ==
LOC: ER 15:32
PROVIDERS: Emergency Medicine
DX: I48.20 Chronic atrial fibrillation, unspecified (principal); Z88.8 Allergy status to other drugs, medicaments and biological substances; Z79.899 Other long term (current) drug therapy; I13.0 Hypertensive heart and chronic kidney disease with heart failure and stage 1 through stage 4 chronic kidney disease, or unspecified chronic kidney disease; I50.9 Heart failure, unspecified; G40.909 Epilepsy, unspecified, not intractable, without status epilepticus; N18.30 Chronic kidney disease, stage 3 unspecified; Z87.891 Personal history of nicotine dependence
CPT/HCPCS: 71045; 80053; 83735; 84443; 84484; 85025; 93005; 93010; 96374; 99285-25

== ENCOUNTER 2022-12-30 09:24 | Inpatient (IN) | payer OTHER ==
[~2022-12-30] VITALS: Ht 172.7 cm; Wt 73.1 kg
[2022-12-30] MEDS ORDERED: DIGOX125 MC1 PO (09:51)
[2022-12-30 09:52] LABS: BASOPHILS ABSOLUTE AUTO 0.05 K/mm3 (0.00-0.23); BASOPHILS PERCENT AUTO 1 % (0-2); EOSINOPHILS ABSOLUTE AUTO 0.14 K/mm3 (0.00-0.68); EOSINOPHILS PERCENT AUTO 2 % (0-6); Hematocrit 49.3 % (37.0-53.0); Hemoglobin 16.5 g/dL (13.5-17.5); IMMATURE GRAN ABSOLUTE AUTO 0.02 K/mm3 (0.00-0.10); IMMATURE GRAN PERCENT AUTO 0 % (0-1); LYMPHOCYTES ABSOLUTE AUTO 0.96 K/mm3 (0.84-5.20); LYMPHOCYTES PERCENT AUTO 11 % (21-46); MONOCYTES PERCENT AUTO 10 % (4-13); Mean Corpuscular HGB 30.8 pg (26.0-34.0); Mean Corpuscular HGB Conc 33.5 g/dL (31.5-36.5); Mean Corpuscular Volume 92 fL (80-100); Mean Platelet Volume 11.1 fL (9.1-12.4); NEUTROPHILS ABSOLUTE AUTO 6.55 K/mm3 (1.96-9.15); NEUTROPHILS PERCENT AUTO 76 % (41-73); Platelet Count 179 K/mm3 (150-400); RDW Coefficient Variation 14.4 % (11.7-14.2); Red Blood Cell Count 5.36 M/mm3 (4.30-5.90); White Blood Cell Count 8.62 K/mm3 (4.00-11.30)
[2022-12-30 10:03] LABS: Albumin, Blood 3.3 g/dL (3.4-5.0); Albumin/Globulin Ratio 0.8 (0.8-1.8); Bun/Creatinine Ratio 30.9 (12.0-20.0); Calcium, Blood 10.1 mg/dL (8.5-10.1); Creatinine, Blood 1.36 mg/dL (0.60-1.20); Globulin, Blood 4.1 g/dL (2.2-4.0); Potassium, Blood 4.4 mmol/L (3.5-5.5); Total Protein, Blood 7.4 g/dL (6.4-8.2)
[2022-12-30 12:18] LABS: Base Excess Venous -7.4 mmol/L; Bicarbonate Venous 19.1 mmol/L (24.0-30.0); PCO2 Venous 37.7 mmHg (38-42); pH Blood Venous 7.31 (7.34-7.37)
[2022-12-30 13:53] LABS: Digoxin (Lanoxin) 0.47 ug/mL (0.80-2.00)
[2022-12-30 17:40] VITALS: BP 109/90
[2022-12-30 20:24] VITALS: BP 112/77
[2022-12-31 05:05] VITALS: BP 111/80
[2022-12-31 07:13] VITALS: BP 107/84
[2022-12-31 07:23] LABS: BASOPHILS ABSOLUTE AUTO 0.06 K/mm3 (0.00-0.23); BASOPHILS PERCENT AUTO 1 % (0-2); EOSINOPHILS ABSOLUTE AUTO 0.34 K/mm3 (0.00-0.68); EOSINOPHILS PERCENT AUTO 4 % (0-6); Hematocrit 44.9 % (37.0-53.0); Hemoglobin 15.3 g/dL (13.5-17.5); IMMATURE GRAN ABSOLUTE AUTO 0.01 K/mm3 (0.00-0.10); IMMATURE GRAN PERCENT AUTO 0 % (0-1); LYMPHOCYTES ABSOLUTE AUTO 1.06 K/mm3 (0.84-5.20); LYMPHOCYTES PERCENT AUTO 14 % (21-46); MONOCYTES ABSOLUTE AUTO 0.63 K/mm3 (0.16-1.47); MONOCYTES PERCENT AUTO 8 % (4-13); Mean Corpuscular HGB 31.5 pg (26.0-34.0); Mean Corpuscular HGB Conc 34.1 g/dL (31.5-36.5); Mean Corpuscular Volume 92 fL (80-100); Mean Platelet Volume 11.3 fL (9.1-12.4); NEUTROPHILS ABSOLUTE AUTO 5.76 K/mm3 (1.96-9.15); NEUTROPHILS PERCENT AUTO 73 % (41-73); Platelet Count 153 K/mm3 (150-400); RDW Coefficient Variation 14.5 % (11.7-14.2); RDW Standard Deviation 49.3 fL (35.1-46.3); Red Blood Cell Count 4.86 M/mm3 (4.30-5.90); White Blood Cell Count 7.86 K/mm3 (4.00-11.30)
[2022-12-31 07:40] LABS: Bun/Creatinine Ratio 28.1 (12.0-20.0); Calcium, Blood 9.2 mg/dL (8.5-10.1); Creatinine, Blood 1.39 mg/dL (0.60-1.20)
--- NOTE | 2022-12-31 16:02 | NUR ---
Pt. is awake in bed and welcomes my visit. This drum puller has seen this Pt. for several hospitalizations. Pt. is unsettled because of his anxiety. Listen with empathy and a calming presence and re-establish rapport. Considered matters of luis alberto and belief, with scriptures being read. Pt. displayed evidence of great trust and engagement. Prayed with Pt. Pt. verbalized gratitude for the spiritual care visit.
[2022-12-31 16:12] VITALS: BP 94/61
[2022-12-31 19:17] VITALS: BP 97/61
--- NOTE | 2022-12-31 19:17 | NUR ---
SHIFT SUMMARY NO ACUTE CHANGES THIS SHIFT. VSS. A&O X 3-4. CAN BE FORGETFUL AT TIMES. PT SAT UP IN CHAIR FOR A FEW HOURS THIS AFTERNOON, PARTICIPATED WITH PT TODAY. IS ON 1 L O2 VIA N/C, ON CONT BI-OX WITH SATS >90%. CAN DE-SAT TO BELOW 90% ON RA. IS ON TELE IN A.FIB WITH CONTROLLED RATE. DENIES CP, N/V AND SOB. BED IN LOW POSITION, CALL LIGHT WITHIN REACH.
[2023-01-01 02:45] VITALS: BP 102/83
[2023-01-01 05:25] LABS: Bun/Creatinine Ratio 27.5 (12.0-20.0); Calcium, Blood 8.9 mg/dL (8.5-10.1); Creatinine, Blood 1.31 mg/dL (0.60-1.20); Potassium, Blood 4.4 mmol/L (3.5-5.5)
--- NOTE | 2023-01-01 06:38 | NUR ---
NASAL CANNULA INADVERTANTLY REMOVED AT TIMES, DESATS TO LOW 80'S WITHOUT 1 L O2, CONTINUOUS PULSE OXIMETER IN PLACE. LAST BM ON 12/31. NO SOB REPORTED. CONDOM CATHETER IN PLACE, REPLACED X1 DURING SHIFT. TELE MONITORING IN PLACE, AFIB IN 110'S-120'S. AOX3, VSS, CALLS APPROPRIATELY.
[2023-01-01 07:07] VITALS: BP 97/81
[2023-01-01] MEDS ORDERED: NYSTATIN15 GM TOP (13:29)
--- NOTE | 2023-01-01 15:40 | NUR ---
PT DISCHARGED AT 1525 VIA WHEEL CHAIR WITH FRIEND TO TRANSPORT. PT AOX4 AND COOPERATIVE OF CARE. DOING WELL AND AMBULATING WELL WITH WALKER. PT WAS EAGER TO GET HOME. NO DISTRESS NOTED. ALL PAPERWORK REVIEWED AND EDUCATIONAL MATIERAL SENT WITH PT.
== END 2023-01-01 15:29 | disposition home or self-care (01) | DRG 291 ==
LOC: ER 09:24 → MEDS 09:25 → ENPENDDIS 01-01 11:31 → MEDS 01-01 15:29
PROVIDERS: Physician Assistant; ADMIT Family Medicine
DX: I13.0 Hypertensive heart and chronic kidney disease with heart failure and stage 1 through stage 4 chronic kidney disease, or unspecified chronic kidney disease (principal); I50.23 Acute on chronic systolic (congestive) heart failure; E87.20 Acidosis, unspecified; I48.91 Unspecified atrial fibrillation; N18.30 Chronic kidney disease, stage 3 unspecified; F41.9 Anxiety disorder, unspecified; R77.8 Other specified abnormalities of plasma proteins; F43.10 Post-traumatic stress disorder, unspecified; G40.909 Epilepsy, unspecified, not intractable, without status epilepticus; I42.9 Cardiomyopathy, unspecified; I25.10 Atherosclerotic heart disease of native coronary artery without angina pectoris; I08.2 Rheumatic disorders of both aortic and tricuspid valves; R40.0 Somnolence; T42.4X5A Adverse effect of benzodiazepines, initial encounter; Z95.1 Presence of aortocoronary bypass graft; Z98.890 Other specified postprocedural states; Z88.8 Allergy status to other drugs, medicaments and biological substances; Z95.0 Presence of cardiac pacemaker; Z87.891 Personal history of nicotine dependence; Z79.01 Long term (current) use of anticoagulants; Z79.51 Long term (current) use of inhaled steroids; Z79.899 Other long term (current) drug therapy; Z86.79 Personal history of other diseases of the circulatory system
CPT/HCPCS: 36415; 70450; 71046; 71260; 80048; 80053; 80162; 82803; 83735; 83880; 84484; 85025; 93005; 93010; 94760; 94761; 94762; 96374-59; 96375; 96375-59; 96376; 97110; 97112; 97161; 97530; 99285-25; A9270; C8929; G0378; J1940; J2060; Q9957; Q9967

== ENCOUNTER 2023-03-22 22:07 | Emergency (ER) | payer OTHER ==
[~2023-03-22] VITALS: Ht 172.7 cm; Wt 75.3 kg
[~2023-03-22 22:07] MED LIST changes: +NYSTATIN15 GM TOP
[2023-03-22 22:23] VITALS: BP 90/77
== END 2023-03-23 00:59 | disposition home or self-care (01) ==
LOC: ER 22:07
DX: F41.9 Anxiety disorder, unspecified (principal); Z88.8 Allergy status to other drugs, medicaments and biological substances; Z79.899 Other long term (current) drug therapy; I12.9 Hypertensive chronic kidney disease with stage 1 through stage 4 chronic kidney disease, or unspecified chronic kidney disease; I50.9 Heart failure, unspecified; G40.909 Epilepsy, unspecified, not intractable, without status epilepticus; I48.91 Unspecified atrial fibrillation; N18.30 Chronic kidney disease, stage 3 unspecified; F43.10 Post-traumatic stress disorder, unspecified; Z87.891 Personal history of nicotine dependence
CPT/HCPCS: A9270

== ENCOUNTER 2023-03-25 16:29 | Emergency (ER) | payer OTHER ==
[~2023-03-25] VITALS: Ht 172.7 cm; Wt 77.1 kg
[2023-03-25 17:06] LABS: BASOPHILS ABSOLUTE AUTO 0.07 K/mm3 (0.00-0.23); BASOPHILS PERCENT AUTO 1 % (0-2); EOSINOPHILS ABSOLUTE AUTO 0.13 K/mm3 (0.00-0.68); EOSINOPHILS PERCENT AUTO 1 % (0-6); Hemoglobin 15.3 g/dL (13.5-17.5); IMMATURE GRAN ABSOLUTE AUTO 0.04 K/mm3 (0.00-0.10); IMMATURE GRAN PERCENT AUTO 0 % (0-1); LYMPHOCYTES ABSOLUTE AUTO 1.22 K/mm3 (0.84-5.20); LYMPHOCYTES PERCENT AUTO 11 % (21-46); MONOCYTES ABSOLUTE AUTO 0.82 K/mm3 (0.16-1.47); MONOCYTES PERCENT AUTO 8 % (4-13); Mean Corpuscular HGB 31.2 pg (26.0-34.0); Mean Corpuscular Volume 92 fL (80-100); Mean Platelet Volume 11.4 fL (9.1-12.4); NEUTROPHILS PERCENT AUTO 79 % (41-73); Platelet Count 194 K/mm3 (150-400); RDW Coefficient Variation 14.7 % (11.7-14.2); RDW Standard Deviation 49.8 fL (35.1-46.3); White Blood Cell Count 10.68 K/mm3 (4.00-11.30)
[2023-03-25 18:32] LABS: Albumin, Blood 3.2 g/dL (3.4-5.0); Albumin/Globulin Ratio 0.8 (0.8-1.8); Bilirubin, Total 0.7 mg/dL (0.1-1.0); Bun/Creatinine Ratio 25.6 (12.0-20.0); Calcium, Blood 9.3 mg/dL (8.5-10.1); Creatinine, Blood 1.33 mg/dL (0.60-1.20); Globulin, Blood 3.8 g/dL (2.2-4.0); Potassium, Blood 4.4 mmol/L (3.5-5.5)
[2023-03-25 22:00] VITALS: BP 133/109
== END 2023-03-25 22:30 | disposition home or self-care (01) ==
LOC: ER 16:29
PROVIDERS: Emergency Medicine
DX: R07.9 Chest pain, unspecified (principal); Z88.8 Allergy status to other drugs, medicaments and biological substances; Z79.899 Other long term (current) drug therapy; I13.0 Hypertensive heart and chronic kidney disease with heart failure and stage 1 through stage 4 chronic kidney disease, or unspecified chronic kidney disease; I50.9 Heart failure, unspecified; N18.30 Chronic kidney disease, stage 3 unspecified; G40.909 Epilepsy, unspecified, not intractable, without status epilepticus; I25.10 Atherosclerotic heart disease of native coronary artery without angina pectoris; F43.10 Post-traumatic stress disorder, unspecified; Z87.891 Personal history of nicotine dependence
CPT/HCPCS: 71045; 80053; 84484; 85025; 93005; 93010; 96374; 96375; 99285-25; J7030

== ENCOUNTER 2023-04-07 16:17 | Inpatient (IN) | payer OTHER ==
[~2023-04-07] VITALS: Ht 170.2 cm; Wt 75.9 kg
[2023-04-07 17:16] LABS: BASOPHILS PERCENT AUTO 1 % (0-2); EOSINOPHILS ABSOLUTE AUTO 0.23 K/mm3 (0.00-0.68); EOSINOPHILS PERCENT AUTO 3 % (0-6); Hematocrit 44.4 % (37.0-53.0); Hemoglobin 14.8 g/dL (13.5-17.5); IMMATURE GRAN ABSOLUTE AUTO 0.03 K/mm3 (0.00-0.10); IMMATURE GRAN PERCENT AUTO 0 % (0-1); LYMPHOCYTES ABSOLUTE AUTO 1.37 K/mm3 (0.84-5.20); LYMPHOCYTES PERCENT AUTO 17 % (21-46); MONOCYTES ABSOLUTE AUTO 0.66 K/mm3 (0.16-1.47); MONOCYTES PERCENT AUTO 8 % (4-13); Mean Corpuscular HGB Conc 33.3 g/dL (31.5-36.5); Mean Corpuscular Volume 93 fL (80-100); NEUTROPHILS ABSOLUTE AUTO 5.55 K/mm3 (1.96-9.15); NEUTROPHILS PERCENT AUTO 70 % (41-73); Platelet Count 193 K/mm3 (150-400); RDW Standard Deviation 51.2 fL (35.1-46.3); Red Blood Cell Count 4.77 M/mm3 (4.30-5.90); White Blood Cell Count 7.94 K/mm3 (4.00-11.30)
[2023-04-07] MEDS ORDERED: ENTRESTO 24 MG1 EACH PO (17:39)
[2023-04-07] MEDS ORDERED: BUSP5 PO (17:40)
[2023-04-07 18:03] LABS: Albumin, Blood 3.3 g/dL (3.4-5.0); Albumin/Globulin Ratio 0.7 (0.8-1.8); Bilirubin, Total 1.4 mg/dL (0.1-1.0); Calcium, Blood 9.5 mg/dL (8.5-10.1); Creatinine, Blood 1.2 mg/dL (0.60-1.20); Globulin, Blood 4.6 g/dL (2.2-4.0); Magnesium, Blood 2.4 mg/dL (1.6-2.4); Potassium, Blood 4.7 mmol/L (3.5-5.5); Total Protein, Blood 7.9 g/dL (6.4-8.2)
[2023-04-07 21:21] VITALS: BP 121/110
[2023-04-08 00:09] VITALS: BP 104/75
[2023-04-08 01:54] LABS: BASOPHILS PERCENT AUTO 1 % (0-2); EOSINOPHILS ABSOLUTE AUTO 0.34 K/mm3 (0.00-0.68); EOSINOPHILS PERCENT AUTO 4 % (0-6); Hematocrit 46.7 % (37.0-53.0); Hemoglobin 15.4 g/dL (13.5-17.5); IMMATURE GRAN ABSOLUTE AUTO 0.08 K/mm3 (0.00-0.10); IMMATURE GRAN PERCENT AUTO 1 % (0-1); LYMPHOCYTES PERCENT AUTO 20 % (21-46); MONOCYTES ABSOLUTE AUTO 0.76 K/mm3 (0.16-1.47); MONOCYTES PERCENT AUTO 9 % (4-13); Mean Corpuscular Volume 94 fL (80-100); Mean Platelet Volume 10.7 fL (9.1-12.4); NEUTROPHILS ABSOLUTE AUTO 5.72 K/mm3 (1.96-9.15); NEUTROPHILS PERCENT AUTO 66 % (41-73); Platelet Count 178 K/mm3 (150-400); RDW Coefficient Variation 15.3 % (11.7-14.2); Red Blood Cell Count 4.97 M/mm3 (4.30-5.90)
[2023-04-08 02:12] LABS: Albumin, Blood 3.1 g/dL (3.4-5.0); Albumin/Globulin Ratio 0.7 (0.8-1.8); Bilirubin, Total 1.3 mg/dL (0.1-1.0); Creatinine, Blood 1.33 mg/dL (0.60-1.20); Globulin, Blood 4.2 g/dL (2.2-4.0); Magnesium, Blood 2.3 mg/dL (1.6-2.4); Potassium, Blood 4.1 mmol/L (3.5-5.5); Total Protein, Blood 7.3 g/dL (6.4-8.2)
[2023-04-08 03:09] VITALS: BP 114/70
--- NOTE | 2023-04-08 06:53 | NUR ---
SHIFT SUMMARY PATIENT ARRIVED TO PCU 10 VIA WHEELCHAIR AROUND 2112. PATIENT WAS ABLE TO TRANSFER TO THE BED WITH MINIMAL ASSISTANCE. PATIENT IS ALERT AND ORIENTED X4, HE IS TALKATIVE AND ANXIOUS. PATIENT ABLE TO AMBULATE WITH A CANE AND GAITBELT. PATIENT ARRIVED ON AN AMIODARONE DRIP, IT IS CURRENTLY RUNNING AT 16.6 ML/HR. PATIENT'S BLOOD PRESSURE IS STABLE, CUTTENLY AFIB IN THE 90'S-100'S, HAD A 6 BEAT RUN OF VTACH AT 0643. PATIENT DENIES CHEST PAIN. PATIENT SATING 100% ON ROOM AIR. REPORTS HAVING SHORTNESS OF BREATH WITH EXERTION AND ANXIETY. PATIENT REQUIRED A ONE TIME DOSE OF HYDROXYZINE FOR ANXIETY, PATIENT STATED THAT THIS HELPS BUT CONTINUES TO BE ANXIOUS. WILL CONTINUE TO MONITOR. CALL LIGHT WITHIN REACH.
[2023-04-08 09:24] VITALS: BP 122/85
--- NOTE | 2023-04-08 09:34 | NUR ---
ASSUMED CARE REPORT FROM ALBERT STAUFFER AT 0700. PT SLEEPING IN BED UNTIL 0900. A&OX 3. FOLLOWS COMMANDS. LOUD, TALKATIVE. STATES ANXIETY IS IMPROVED. STATES HE IS FEELING BETTER THAN LAST NOC. AFIB ON MONITOR, RATE 80-100'S. AMIO GTT INFUSING AT 0.5 MG/MIN. BP STABLE. LUNGS CLEAR. ON RA. SPEAKING IN FULL SENTENCES. INDEPENDENT IN ROOM. ABLE TO MAKE NEEDS KNOWN. REPORT TO TEMO STAUFFER.
--- NOTE | 2023-04-08 09:44 | NUR ---
ASSUMED CARE FROM [facility]
--- NOTE | 2023-04-08 17:10 | NUR ---
SHIFT SUMMARY NO EVENTS DURING THE SHIFT. AMIODARONE STILL INF. PATIENT UP IN CHAIR IN ROOM, PLEASANT AND COOPERATIVE WITH CARE. GOOD URINE OUTPUT AND TOLERATED PO.
[2023-04-08 21:08] VITALS: BP 105/77
[2023-04-08 23:29] VITALS: BP 112/89
[2023-04-09 03:40] VITALS: BP 102/80
--- NOTE | 2023-04-09 04:13 | NUR ---
SHIFT SUMMARY PT A&Ox4, CALLS AND COMMUNICATES NEEDS APPROPRIATELY. PT HAS FLIGHT OF IDEAS AND VERY TALKATIVE. BP STABLE, AFIB w/ BBB 70-100's, DENIES CP/PRESSURE. PT HAD ONE 7 BEAT AND ONE 10 BEAT RUN OF V-TACH THIS SHIFT, ASYMPTOMATIC. SpO2> 92%, DENIES SOB. SBA IN ROOM, CONTINENT OF URINE AND BOWEL. AMIO INFILTRATION SITE REMAINS UNCHANGED SINCE START OF SHIFT, REDNESS HAS NOT SPREAD OUTSIDE OF DRAWN BORDER. PT REPORTS MILD TENDERNESS AT SITE. WARM COMPRESSES APPLIED. NO OTHER EVENTS, WILL REPORT TO ONCOMING RN.
[2023-04-09 04:37] LABS: Albumin, Blood 2.7 g/dL (3.4-5.0); Anion Gap 4 mmol/L (6-16); Blood Urea Nitrogen 29 mg/dL (8-24); Bun/Creatinine Ratio 18.2 (12.0-20.0); CO2, Blood 31 mmol/L (21-32); Calcium, Blood 8.8 mg/dL (8.5-10.1); Chloride, Blood 104 mmol/L (98-108); Creatinine, Blood 1.59 mg/dL (0.60-1.20); Glomerular Filtration Rate 46 (60-); Glucose, Blood 118 mg/dL (70-99); Magnesium, Blood 2.2 mg/dL (1.6-2.4); Phosphorus, Blood 3.2 mg/dL (2.5-4.9); Potassium, Blood 4.3 mmol/L (3.5-5.5); Sodium, Blood 139 mmol/L (136-145)
[2023-04-09 08:00] VITALS: BP 146/106
--- NOTE | 2023-04-09 08:00 | NUR ---
PT PLEASANT COOP A/O, VERY TALKATIVE, SOME ANX. NO C/O PAIN. STATES FEELS WANTS TO GO HOME. STATES FEELS BETTER. H/R IRREG, NO MURMUR NOTED. RT LEG +1 EDEMA, L LEG +2 EDEMA. PT STATES PRETTY NORMAL. LUNGS CLEAR, RESP EASY, UNLABORED. ON R/A. BT X4 LAST BM YEST, STATES SOME LOOSE. VOIDS URINAL. SBA TO BATHROOM. BED IN LOW POSITION, CALL LITE IN REACH, CALLS APROP IV INFILTRATED YEST. SOME REDNESS MARKED WITH PEN. NO CHANGE FROM RAHUL/
--- NOTE | 2023-04-09 10:35 | NUR ---
Pt. is awake and sitting in a chair when he welcomes my visit. Pt. is known to this bone char operator from previous hospitalizations. Rapport is re-established and Pt is overall pleasant. Pt is unsettled about logistics at discharge, and verbalizes that he has had issues of anxiety. Listen with empathy and a calming presence. Pt. displays evidence of trust and awareness. Prayed with Pt. Pts. physician arrived, so I concluded my visit. Pt. verbalized gratitude for the spiritual care visit.
[2023-04-09 10:45] VITALS: BP 99/69
[2023-04-09] MEDS ORDERED: AMIODARONE HCL200 MG PO (12:52)
--- NOTE | 2023-04-09 14:02 | NUR ---
DISCHARGE UPDATE DISCHARGE INSTRUCTIONS GONE OVER WITH PT AT 1310. PT DISCHARGED AT 1320 VIA WHEELCHAIR AND ON RA. PT ABLE TO TRANSFER SELF TO AND FROM WHEELCHAIR ON HIS OWN, TOLERATED WELL. PT LEFT WITH TRANSPORT ARRANGED BY CAREMANAGER. PT BELONGING AND DISCHARGE PACKET IN BAG AND WITH PT AT TIME OF DISCHARGE.
== END 2023-04-09 12:50 | disposition home or self-care (01) | DRG 309 ==
LOC: ER 16:17 → PCU 16:18
PROVIDERS: Internal Medicine; Nurse Practitioner Acute Care; Student in an Organized Health Care Education/Training Program; ADMIT Student in an Organized Health Care Education/Training Program
DX: I48.20 Chronic atrial fibrillation, unspecified (principal); I13.0 Hypertensive heart and chronic kidney disease with heart failure and stage 1 through stage 4 chronic kidney disease, or unspecified chronic kidney disease; I50.22 Chronic systolic (congestive) heart failure; I47.20 Ventricular tachycardia, unspecified; I42.9 Cardiomyopathy, unspecified; I25.10 Atherosclerotic heart disease of native coronary artery without angina pectoris; G40.909 Epilepsy, unspecified, not intractable, without status epilepticus; F43.10 Post-traumatic stress disorder, unspecified; I08.2 Rheumatic disorders of both aortic and tricuspid valves; F41.9 Anxiety disorder, unspecified; N18.30 Chronic kidney disease, stage 3 unspecified; I27.20 Pulmonary hypertension, unspecified; F12.90 Cannabis use, unspecified, uncomplicated; Z79.899 Other long term (current) drug therapy; Z88.8 Allergy status to other drugs, medicaments and biological substances; Z79.01 Long term (current) use of anticoagulants; Z95.1 Presence of aortocoronary bypass graft; Z95.0 Presence of cardiac pacemaker; Z87.891 Personal history of nicotine dependence; Z98.890 Other specified postprocedural states; Z95.5 Presence of coronary angioplasty implant and graft
CPT/HCPCS: 36415; 71045; 80053; 80069; 83735; 83880; 84443; 84484; 85025; 93005; 93010; 94640; 94664; 94760; 94762; 96374; 96375; 96376; 99285-25; A9270; G0378; J0282; J1940; J7060

== ENCOUNTER 2023-04-20 20:51 | Inpatient (IN) | payer OTHER ==
[~2023-04-20] VITALS: Ht 172.7 cm; Wt 70.7 kg
[~2023-04-20 20:51] MED LIST changes: +AMIODARONE HCL200 MG PO; +BUSP5 PO; +ENTRESTO 24 MG1 EACH PO
[2023-04-20 21:20] LABS: BASOPHILS PERCENT AUTO 1 % (0-2); EOSINOPHILS ABSOLUTE AUTO 0.16 K/mm3 (0.00-0.68); EOSINOPHILS PERCENT AUTO 2 % (0-6); Hematocrit 54.2 % (37.0-53.0); Hemoglobin 17.2 g/dL (13.5-17.5); IMMATURE GRAN ABSOLUTE AUTO 0.03 K/mm3 (0.00-0.10); IMMATURE GRAN PERCENT AUTO 0 % (0-1); LYMPHOCYTES ABSOLUTE AUTO 1.75 K/mm3 (0.84-5.20); LYMPHOCYTES PERCENT AUTO 18 % (21-46); MONOCYTES ABSOLUTE AUTO 0.96 K/mm3 (0.16-1.47); MONOCYTES PERCENT AUTO 10 % (4-13); Mean Corpuscular HGB 30.9 pg (26.0-34.0); Mean Corpuscular HGB Conc 31.7 g/dL (31.5-36.5); Mean Corpuscular Volume 98 fL (80-100); Mean Platelet Volume 10.7 fL (9.1-12.4); NEUTROPHILS PERCENT AUTO 69 % (41-73); Platelet Count 199 K/mm3 (150-400); RDW Coefficient Variation 15.8 % (11.7-14.2); RDW Standard Deviation 56.3 fL (35.1-46.3); Red Blood Cell Count 5.56 M/mm3 (4.30-5.90)
[2023-04-20 21:34] LABS: Source, Urine Clean Catch
[2023-04-20 21:46] LABS: Appearance, Urine Clear (Clear); Bilirubin, Urine Neg (Neg); Blood, Urine Neg (Neg); Color, Urine Yellow (P-Yellow); Glucose Qualitative, Urine Neg (Neg); Ketones, Urine Neg (Neg); Leukocyte Esterase, Urine Neg (Neg); Nitrite, Urine Neg (Neg); Protein, Urine 3+ (Neg); Urobilinogen, Urine 1+ (Normal)
[2023-04-20 21:48] LABS: Albumin, Blood 3.4 g/dL (3.4-5.0); Albumin/Globulin Ratio 0.7 (0.8-1.8); Bilirubin, Total 1.3 mg/dL (0.1-1.0); Bun/Creatinine Ratio 19.4 (12.0-20.0); Calcium, Blood 8.8 mg/dL (8.5-10.1); Creatinine, Blood 1.29 mg/dL (0.60-1.20); Globulin, Blood 4.7 g/dL (2.2-4.0); Magnesium, Blood 2.3 mg/dL (1.6-2.4); Potassium, Blood 4.3 mmol/L (3.5-5.5); Thyroid Stimulating Hormone 2.99 uIU/mL (0.360-4.800); Total Protein, Blood 8.1 g/dL (6.4-8.2)
[2023-04-20 21:48] LABS: D-Dimer, Quantitative 0.55 mg/L FEU (0.00-0.52); International Normalized Ratio 1.46
[2023-04-20 22:00] LABS: U Amphetamine Screen Not Detected; U Barbituate Screen Not Detected; U Benzodiazapine Screen Not Detected; U Buprenorphine Screen Not Detected; U Cannabinoids Screen Not Detected; U Cocaine Screen Not Detected; U Methadone Screen Not Detected; U Methamphetamine Screen Not Detected; U Opiates Screen Not Detected; U Oxycodone Screen Not Detected; U Phencyclidine Screen Not Detected; U Propoxyphene Screen Not Detected
[2023-04-20 22:06] LABS: Bacteria Mod /hpf; Hyaline Casts 0-2 /lpf (0-2); Red Blood Cells, Urine 0-2 /hpf (0-2); Squamous Epithelial Cells Not Seen /hpf (Few)
[2023-04-21] VITALS (7 sets, daily range): BP systolic 85–123; BP diastolic 65–89
[2023-04-21 06:18] LABS: BASOPHILS ABSOLUTE AUTO 0.08 K/mm3 (0.00-0.23); BASOPHILS PERCENT AUTO 1 % (0-2); EOSINOPHILS ABSOLUTE AUTO 0.25 K/mm3 (0.00-0.68); EOSINOPHILS PERCENT AUTO 4 % (0-6); Hematocrit 47.1 % (37.0-53.0); Hemoglobin 15.5 g/dL (13.5-17.5); IMMATURE GRAN ABSOLUTE AUTO 0.02 K/mm3 (0.00-0.10); IMMATURE GRAN PERCENT AUTO 0 % (0-1); LYMPHOCYTES ABSOLUTE AUTO 1.63 K/mm3 (0.84-5.20); LYMPHOCYTES PERCENT AUTO 25 % (21-46); MONOCYTES ABSOLUTE AUTO 0.86 K/mm3 (0.16-1.47); MONOCYTES PERCENT AUTO 13 % (4-13); Mean Corpuscular HGB 31.4 pg (26.0-34.0); Mean Corpuscular HGB Conc 32.9 g/dL (31.5-36.5); Mean Corpuscular Volume 96 fL (80-100); Mean Platelet Volume 11.1 fL (9.1-12.4); NEUTROPHILS ABSOLUTE AUTO 3.81 K/mm3 (1.96-9.15); NEUTROPHILS PERCENT AUTO 57 % (41-73); Platelet Count 182 K/mm3 (150-400); RDW Coefficient Variation 15.4 % (11.7-14.2); RDW Standard Deviation 54.6 fL (35.1-46.3); Red Blood Cell Count 4.93 M/mm3 (4.30-5.90); White Blood Cell Count 6.65 K/mm3 (4.00-11.30)
--- NOTE | 2023-04-21 06:45 | NUR ---
SHIFT SUMMARY PATIENT ARRIVED TO PCU 13 VIA STRETCHER AT 0100. HE IS ALERT AND ORIENTED X4, ABLE TO AMBULATE WITH MINIMAL ASSIST. PATIENT IS ON 5 LITERS O2 AT HOME AND STATES HE BECOMES WINDED EASILY. PATIENT AFIB IN 110'S ON ARIVAL AND PATIENT REPORTED THAT HE HAD NOT BEEN TAKING HIS AMIODARONE OR HIS DIGOXIN SINCE HIS LAST ADMIT TO THE HOSPITAL DUE TO NOT KNOWING WHEN HE'S SUPPOSED TO BE TAKING HIS MEDICATIONS. BLOOD PRESSURE HYPOTENSIVE IN THE 90'S WITH MAP GREATER THAN 65. PATIENT DENIES CHEST PAIN. WILL CONTINUE TO MONITOR. CALL LIGHT WITHIN REACH.
[2023-04-21 06:50] LABS: Albumin, Blood 2.9 g/dL (3.4-5.0); Albumin/Globulin Ratio 0.7 (0.8-1.8); Bilirubin, Total 1.2 mg/dL (0.1-1.0); Calcium, Blood 8.8 mg/dL (8.5-10.1); Creatinine, Blood 1.33 mg/dL (0.60-1.20); Potassium, Blood 4.5 mmol/L (3.5-5.5); Total Protein, Blood 6.9 g/dL (6.4-8.2)
--- NOTE | 2023-04-21 09:46 | NUR ---
PT IS AGITATED INTERMITTENTLY WITH STAFF. PT REPORTS TO DR CROCKER THAT HE HAS BEEN TAKING HIS HOME MEDICATIONS THEN STATES THAT THE MEDICATIONS THAT WERE PRESCRIBED TO HIM LAST WEEK HAVE NOT YET ARRIVED FROM OR MAIL ORDER PHARMACY, HE HAS NOT BEEN TAKING HR CONTROL MEDICATIONS
--- NOTE | 2023-04-21 14:15 | NUR ---
Pt. is awake in his bed when he welcomes my visit. Pt. is pleasant with this portfolio architect but verbalizes that he has been lonely since his passed in 2011. Listen with empathy and a calming presence. Facilitate a life review which spans 50 years. Pt. verbalizes the impact of serving in the [email or web address]. Addressed matters of grief and self care. Pt. displayed evidence of understanding. Scripture is shared by both myself and the Pt. Prayed with the Pt. Pt. verbalized gratitude for the spiritual care visit.
--- NOTE | 2023-04-21 18:02 | NUR ---
PT HAS BEEN RESTING WELL IN BED T/O THE DAY. A/O X4, CAN BE A BIT AGITATED WITH STAFF. DENIES CP, SOB WITH AMBULATION WHICH HE STATES IS NORMAL FOR HIM. PRESSURES MORE SOFT AFTER MEDICATIONS BUT MAP IS WITHIN THE 70s. HR 110s-130s T/O THE DAY. PT CAN BE IMPUSLIVE BED ALARM IS ACTIVATED. PT REPORTS THAT HE IS NOT TAKIN GHIS MEDICATIONS PRESCRIBED AND STATES THAT HE THINKS IF HE STARTS STAKING HIS MEDICATIONS HE WILL STAY OUT OF HOSPITAL, PT HAS ACTUALLY BEED EDUCATED NUMEROUS TIMES ABOUT THIS AND THIS EVENING EXPRESSED UNDERSTANDING. HE IS A SBA TO [facility].
[2023-04-22] VITALS (9 sets, daily range): BP systolic 76–114; BP diastolic 58–88
[2023-04-22 05:00] LABS: Bun/Creatinine Ratio 20.4 (12.0-20.0); Calcium, Blood 8.4 mg/dL (8.5-10.1); Creatinine, Blood 1.37 mg/dL (0.60-1.20); Magnesium, Blood 2.1 mg/dL (1.6-2.4); Phosphorus, Blood 4.1 mg/dL (2.5-4.9); Potassium, Blood 4.5 mmol/L (3.5-5.5)
--- NOTE | 2023-04-22 06:39 | NUR ---
SHIFT SUMMARY PATIENT ALERT AND ORIENTED X4. HAD NO COMPLAINTS OF PAIN. BECOMES SHORT OF BREATH WITH ACTIVITY BUT QUICKLY RECOVERS. PATIENT ON BASELINE OXYGEN DOSE. PATIENT HAS BEEN AFIB 110-130, THIS RN WAS UNABLE TO ADMINISTER SCHEDULED PO METOPROLOL DUE TO PATIENT BEING HYPOTENSIVE, MAP STAYED ABOVE 65 THOUGH. NO OTHER ISSUES NOTED. WILL CONTINUE TO MONITOR. CALL LIGHT WITHIN REACH.
--- NOTE | 2023-04-22 14:46 | NUR ---
Pt. is awake and welcomes my visit. Pt. has met with this feather edger frequently so rapport is quickly re-established. Pt. displayed evidence of being lonely. Facilitated a life review and conducted conversation regarding various subjects of the Pts. interest. Matters of luis alberto and belief are also discussed. Prayed with Pt. Pt. verbalized gratitude for the spiritual care visit and requested this feather edger to return.
--- NOTE | 2023-04-22 17:57 | NUR ---
Shift summary No acute changes this shift. Pt a&ox4. sp02>90% on 5l nc. c/o of some sob, improved this afternoon per pt. Telemetry shows afib, mostly 110's-130's. bp soft this shift, see vitals. Pt needing sba w/ fww to stand and void into urinal. Bm on bsc x1 today. Denies pain. Tax Associate in room this shift to converse w/ pt for a good amount of time. Pt talked on phone to friends for a good amount of shift. Currently lying in bed watching tv. Call light in reach.
[2023-04-23] VITALS (11 sets, daily range): BP systolic 76–119; BP diastolic 60–92
--- NOTE | 2023-04-23 06:48 | NUR ---
SHIFT SUMMARY PATIENT ALERT AND ORIENTED X4. ENTRESTO AND MIDNIGHT DOSE OF METOPROLOL HELD FOR LOW BLOOD PRESSURE. PATIENT HAS BEEN HYPOTENSIVE ALL NIGHT WITH SYSTOLIC BLOOD PRESSURE IN THE 70'S AND 80'S, MAP ABOVE 65, PATIENT ASYMPTOMATIC. HEART RATE AFIB 110'S - 130'S. PATIENT DENIES CHEST PAIN. WILL CONTINUE TO MONITOR. CALL LIGHT WITHIN REACH.
--- NOTE | 2023-04-23 09:40 | NUR ---
ASSUMPTION OF CARE ASSUMED CARE AT APPROX 0700. PT AOX4, COOPERATIVE W/ CARE. REPORTS FEELING ANXIOUS, DOES REPORT ANXIETY AT BASELINE MANAGED W/ MEDICATION. MEDICATED PER EMAR. SOFT BP, SBP 90'S, MAP >65. ASYMPTOMATIC. HR 120-140'S, PLAN TO MANAGE PER EMAR. W/ ORDER FOR DIGOXIN, MEDICATION ADMINISTERED ORDERED. PT CURRENTLY ON BASELINE 5L PER NC. GENERALIZED WEAKNESS T/O, AMBULATING W/ SBA - 1P ASSIST W/ FWW & GB TO BSC. VOIDING, OCCASIONAL EPISODES OF INCONTINENCE. URINAL AT BEDSIDE, REQUIRES ASSIST. PULL UP ATTENDS IN PLACE. BM THIS MORNING. BEDBATH PERFORMED THIS MORNING. REQUIRES FREQUENT REINFORCEMENT OF EDUCATION. CALL LIGHT IN REACH.
[2023-04-23 11:15] LABS: Albumin, Blood 2.9 g/dL (3.4-5.0); Anion Gap 6 mmol/L (6-16); Blood Urea Nitrogen 29 mg/dL (8-24); Bun/Creatinine Ratio 19.9 (12.0-20.0); CO2, Blood 33 mmol/L (21-32); Calcium, Blood 8.4 mg/dL (8.5-10.1); Chloride, Blood 101 mmol/L (98-108); Creatinine, Blood 1.46 mg/dL (0.60-1.20); Glomerular Filtration Rate 50 (60-); Glucose, Blood 120 mg/dL (70-99); Magnesium, Blood 1.8 mg/dL (1.6-2.4); Phosphorus, Blood 2.8 mg/dL (2.5-4.9); Potassium, Blood 4.2 mmol/L (3.5-5.5); Sodium, Blood 140 mmol/L (136-145)
--- NOTE | 2023-04-23 11:40 | NUR ---
"Spiritual Care| Nurse requeust via Chaplian Colten Pt. is awake and welcomes my visit. Rapport is quickly re-established. Considered matters of luis alberto and belief as well as the good ole' days. Pt. displays evidence of being comforted from the visit. Pt. verbalizes an expectation that his female friend will be visiting sometime today. Prayed with Pt. Pt. verbalized gratitude for the spiritual care visit and requested this record retrieval specialist to return when able."
--- NOTE | 2023-04-23 16:40 | NUR ---
SHIFT SUMMARY NO ACUTE CHANGES THIS SHIFT. VSS. RCVD ORDER FROM MD TO TITRATE OXYGEN USE IF SATS ARE >95%. CURRENTLY ON 3L VIA NC, SATS 92-95%. CURRENTLY AFIB 90'S-110'S W/ METOPROLOL AND DIGOXIN ADMINISTERED ORDERED. BLOOD PRESSURE IMPROVED, SBP 90'S-110'S. PT AMBULATING W/ 1P ASSIST W/ FWW. VOIDING, MULTIPLE BM'S THIS SHIFT, SOME INCONTINCE W/ BOTH. SLEPT PERIODICALLY T/O THE SHIFT. CASE MANAGMENT ON CASE D/T DIFFICULTY W/ MEDICATION COMPLIANCE & GENERALIZED DECONDITIONING. ADULT PROTECTIVE SERVICES EVALUATION COMPLETED THIS MORNING. PT CAN BE IMPULSIVE AT TIMES, BED ALARM ON. WILL REPORT TO ONCOMING RN.
[2023-04-24] VITALS (9 sets, daily range): BP systolic 87–135; BP diastolic 52–119
--- NOTE | 2023-04-24 05:40 | NUR ---
SHIFT SUMMARY NO ACUTE CHANGES THIS SHIFT. PT A&OX4. SP02>90% ON 3L NC. TELEMETRY SHOWS AFIB, HR 90'S-110'S. PT UP TO VOID AT SIDE OF BED FREQUENTLY. NO BM THIS SHIFT. HELPED REPOSITION MULTIPLE TIMES. PT TALKED ON PHONE FIRST HALF OF SHIFT. SON CAME IN TO VISIT AT START OF SHIFT. PT FELL ASLEEP APPROX 0400 AND CURRENTLY STILL SLEEPING, LIGHTS ON PER REQUEST. CALL LIGHT IN REACH.
[2023-04-24 05:41] LABS: Digoxin (Lanoxin) 1.86 ug/mL (0.80-2.00)
--- NOTE | 2023-04-24 06:27 | NUR ---
UPDATE TELEMETRY JUST NOTIFIED OF 7 BEAT RUN OF VTACH. PT ASYMPTOMATIC, SLEEPING DURING EVENT.
[2023-04-24 09:15] LABS: Albumin, Blood 2.8 g/dL (3.4-5.0); Anion Gap 4 mmol/L (6-16); Blood Urea Nitrogen 24 mg/dL (8-24); Bun/Creatinine Ratio 20.2 (12.0-20.0); CO2, Blood 34 mmol/L (21-32); Calcium, Blood 8.7 mg/dL (8.5-10.1); Chloride, Blood 100 mmol/L (98-108); Creatinine, Blood 1.19 mg/dL (0.60-1.20); Glomerular Filtration Rate 65 (60-); Glucose, Blood 99 mg/dL (70-99); Magnesium, Blood 1.8 mg/dL (1.6-2.4); Phosphorus, Blood 2.2 mg/dL (2.5-4.9); Potassium, Blood 3.9 mmol/L (3.5-5.5); Sodium, Blood 138 mmol/L (136-145)
--- NOTE | 2023-04-24 11:53 | NUR ---
MORNING NOTE ASSUMED CARE AT APPROX 0700. PT AOX4, PLEASANT AND COOPERATIVE W/ CARE AND EDUCATION. VSS. AFIB 110'S-120'S W/ OCCASSIONAL INCREASE TO 130'S-140'S. NONSUSTAINING, PT ASYMPTOMATIC W/ INCREASE, PO METOPROLOL AND DIGOXIN ADMINISTERED PER EMAR. SOFT BP, SBP 90'S-100'S. CURRENTLY ON 2L VIA NC, SATS >90%. VOIDING, URGENCY ASSESSED. OCCASSIONAL INCONTINENCE, URINAL AT BEDSIDE AND PULL UP ATTENDS IN PLACE. PT AMBULATES TO BSC AND CHAIR W/ 1P ASSIST FWW. PHYSICAL THERAPY/OCCUPATIONAL THERAPY EVAL ORDERED. BEDBATH PERFORMED. USES CALL LIGHT FOR NEEDS PRN.
--- NOTE | 2023-04-24 17:03 | NUR ---
SHIFT SUMMARY NO ACUTE CHANGES THIS SHIFT. PT CONTINUED TO BE AOX4, ABLE TO MAKE NEEDS KNOWN AND PARTICIPATE IN CARE. VSS. TELEMETRY SHOWING AFIB 80'S-90'S. SOFT BP, SBP 90'S-110'S, PT ASYMPTOMATIC. MANAGING HEART RATE PER EMAR W/ PO METOPROLOL AND DIGOXIN. CURRENTLY ON 2L VIA NC, SATS >90%. FREQUENTLY UP TO VOID AT SIDE OF BED W/ URINAL. BM THIS SHIFT. PHYSICAL THERAPY EVAL COMPLETED, RECOMMENDING SNF PLACEMENT. PT SLEPT PERIODICALLY T/O. CALL LIGHT WITHIN REACH. WILL REPORT TO ONCOMING RN.
[2023-04-25 00:03] VITALS: BP 116/78
[2023-04-25 04:21] VITALS: BP 125/90
--- NOTE | 2023-04-25 04:24 | NUR ---
SHIFT SUMMARY: PT ALERT AND ORIENTED X4, ABLE TO FOLLOW COMMANDS AND MAKE NEEDS KNOWN. COOPERATIVE WITH CARE. PT ANXIOUS/IMPULSIVE AT TIMES. BED ALARM ON FOR SAFETY. BP STABLE, HR REMAINS AFIB 80'S, AFEBRILE, SATS >98% ON 3L NC. RESPIRATIONS EVEN AND UNLABORED AT REST, PT STATES INCREASED WORK OF BREATHING WITH EXCERTION. PULSES STRONG AND EQUAL THROUGHOUT. DENIES CP/PRESSURE. PT ONE PERSON ASSIST W/ FWW, ABLE TO USE URINAL AT SIDE OF BED. NO BM. PT ABLE TO SLEEP ON AND OFF THROUGOUT THE NIGHT, ABLE TO REPOS IND IN BED. BED IN LOW, CALL LIGHT IN REACH, WILL REPORT TO ONCOMING RN.
[2023-04-25 04:47] LABS: Albumin, Blood 2.9 g/dL (3.4-5.0); Anion Gap 3 mmol/L (6-16); Blood Urea Nitrogen 28 mg/dL (8-24); Bun/Creatinine Ratio 21.2 (12.0-20.0); CO2, Blood 37 mmol/L (21-32); Calcium, Blood 8.7 mg/dL (8.5-10.1); Chloride, Blood 99 mmol/L (98-108); Creatinine, Blood 1.32 mg/dL (0.60-1.20); Digoxin (Lanoxin) 1.07 ug/mL (0.80-2.00); Glomerular Filtration Rate 57 (60-); Glucose, Blood 85 mg/dL (70-99); Phosphorus, Blood 2.6 mg/dL (2.5-4.9); Sodium, Blood 139 mmol/L (136-145)
[2023-04-25 08:18] VITALS: BP 138/68
--- NOTE | 2023-04-25 09:58 | NUR ---
ASSUMPTION OF CARE ASSUMED CARE AT APPROX 0700. AOX4, EASILY AROUSABLE TO VERBAL STIMULI. VSS. TELEMETRY SHOWING AFIB 80'S-90'S. HR WILL INCREASE TO 90'S-110'S PERIODICALLY, NONSUSTAINING. METOPROLOL AND DIGOXIN ADMINISTERED PER EMAR. TITRATED TO ROOM AIR, SATS >90%. MD TO BEDSIDE FOR MORNING ROUNDING, NO NEW ORDERS RCVD. POSSIBLE DC TODAY OR STATUS CHANGE. UP W/ 1P - SBA DEPENDING ON DEGREE OF WEAKNESS. FWW, PT REPORTS THAT HE USES ONE AT HOME WELL. UP TO CHAIR FOR BREAKFAST, CURRENTLY SITTING ON SIDE OF BED. RECEPTIVE TO EDUCATION, ASKS QUESTIONS PRN. USING URINAL, ASSIST PRN. CALL LIGHT IN REACH.
[2023-04-25 11:10] VITALS: BP 93/61
[2023-04-25] MEDS ORDERED: DIGOX125 MC1 PO (12:02)
--- NOTE | 2023-04-25 13:07 | NUR ---
DISCHARGE NOTE NO ACUTE CHANGES SINCE ASSUMPTION OF CARE. VSS. ON RM AIR, SATS >90%. TELEMETRY SHOWING AFIB 80'S-90'S. PT AMBULATING W/ SBA FWW. VOIDING. BM THIS MORNING. ORDERED DISCHARGE HOME W/ HH PT REFUSING DISCHARGE TO A GROUP HOME FACILITY. PT AGREES W/ PLAN FOR HOME W/ HH. DISCHARGE EDUCATION PROVIDED. IMPORTANCE OF MEDICATION COMPLIANCE EXPLAINED, PT STATES UNDERSTANDING. IV RMVD. TELEMETRY RMVD. HOSPITAL PROVIDED SHOES AND PANTS FOR DISCHARGE PT DID NOT HAVE ANY W/ HIM. PT TRANSFERRED TO VEHICLE VIA WHEELCHAIR PT STATES THAT HIS RIDE IS HERE AT THIS TIME. PERSONAL BELONGINGS TRANSFERRED W/ PT.
== END 2023-04-25 13:23 | disposition home or self-care (01) | DRG 308 ==
LOC: ER 20:51 → PCU 20:52 → ER 20:52 → PCU 04-21 01:13
PROVIDERS: Emergency Medicine; Internal Medicine; ADMIT Internal Medicine
DX: I48.20 Chronic atrial fibrillation, unspecified (principal); I50.23 Acute on chronic systolic (congestive) heart failure; J96.01 Acute respiratory failure with hypoxia; I13.0 Hypertensive heart and chronic kidney disease with heart failure and stage 1 through stage 4 chronic kidney disease, or unspecified chronic kidney disease; I47.20 Ventricular tachycardia, unspecified; N18.30 Chronic kidney disease, stage 3 unspecified; I42.0 Dilated cardiomyopathy; G40.909 Epilepsy, unspecified, not intractable, without status epilepticus; I25.10 Atherosclerotic heart disease of native coronary artery without angina pectoris; F41.9 Anxiety disorder, unspecified; F43.10 Post-traumatic stress disorder, unspecified; I35.1 Nonrheumatic aortic (valve) insufficiency; I07.1 Rheumatic tricuspid insufficiency; I35.0 Nonrheumatic aortic (valve) stenosis; Z95.0 Presence of cardiac pacemaker; Z95.1 Presence of aortocoronary bypass graft; Z88.8 Allergy status to other drugs, medicaments and biological substances; Z79.01 Long term (current) use of anticoagulants; Z98.890 Other specified postprocedural states; Z87.891 Personal history of nicotine dependence; Z79.899 Other long term (current) drug therapy; Z91.148 Patient's other noncompliance with medication regimen for other reason
CPT/HCPCS: 36415; 71045; 80048; 80053; 80069; 80162; 81001; 82010; 83605; 83735; 83880; 84100; 84443; 84484; 85025; 85379; 85610; 85730; 87077; 87086; 87186; 93005; 93010; 94760; 94762; 96365; 96376; 97162; 97530; 99285-25; A9270; J1160; J3470; J7030

== ENCOUNTER 2023-06-18 02:41 | Observation (INO) | payer OTHER ==
[2023-06-18 02:53] LABS: BASOPHILS ABSOLUTE AUTO 0.08 K/mm3 (0.00-0.23); BASOPHILS PERCENT AUTO 1 % (0-2); EOSINOPHILS ABSOLUTE AUTO 0.08 K/mm3 (0.00-0.68); EOSINOPHILS PERCENT AUTO 1 % (0-6); Hemoglobin 18.1 g/dL (13.5-17.5); IMMATURE GRAN ABSOLUTE AUTO 0.01 K/mm3 (0.00-0.10); IMMATURE GRAN PERCENT AUTO 0 % (0-1); LYMPHOCYTES ABSOLUTE AUTO 1.21 K/mm3 (0.84-5.20); LYMPHOCYTES PERCENT AUTO 16 % (21-46); MONOCYTES ABSOLUTE AUTO 0.64 K/mm3 (0.16-1.47); MONOCYTES PERCENT AUTO 9 % (4-13); Mean Corpuscular HGB 31.1 pg (26.0-34.0); Mean Corpuscular HGB Conc 32.9 g/dL (31.5-36.5); Mean Corpuscular Volume 95 fL (80-100); Mean Platelet Volume 10.7 fL (9.1-12.4); NEUTROPHILS ABSOLUTE AUTO 5.42 K/mm3 (1.96-9.15); NEUTROPHILS PERCENT AUTO 73 % (41-73); Platelet Count 166 K/mm3 (150-400); RDW Standard Deviation 48.8 fL (35.1-46.3); Red Blood Cell Count 5.82 M/mm3 (4.30-5.90); White Blood Cell Count 7.44 K/mm3 (4.00-11.30)
[2023-06-18 03:28] LABS: Albumin, Blood 3.8 g/dL (3.4-5.0); Albumin/Globulin Ratio 0.8 (0.8-1.8); Bilirubin, Total 0.9 mg/dL (0.1-1.0); Calcium, Blood 9.8 mg/dL (8.5-10.1); Creatinine, Blood 1.53 mg/dL (0.60-1.20); Globulin, Blood 4.9 g/dL (2.2-4.0); Potassium, Blood 4.9 mmol/L (3.5-5.5); Total Protein, Blood 8.7 g/dL (6.4-8.2)
--- NOTE | 2023-06-18 09:48 | NUR ---
Pt. is awake in bed in ED4 when he welcomes my visit. Pt. is familiar to this extruding press operator from previous hospitalizations. Facilitate a life update. Pt. displays evidence of being aware and engaged. Prayed with Pt. Pt. request this extruding press operator to get him a Rosary, Pt. verbalized gratitude for the spiritual care visit. Will track with Pt. as he gets admitted.
[2023-06-18 09:55] VITALS: BP 106/86
[2023-06-18] MEDS ORDERED: JARDIANCE10 MG PO (13:52)
[2023-06-18] MEDS ORDERED: HYDHCL25 (13:54)
[2023-06-18] MEDS ORDERED: Amiodarone HCl200 MG PO (13:58)
[2023-06-18] MEDS ORDERED: POTA10T PO (14:00)
[2023-06-18 17:31] VITALS: BP 92/79
--- NOTE | 2023-06-18 18:40 | NUR ---
SHIFT SUMMARY/ADMISSION NOTE PT ARRIVED TO MEDICAL FLOOR FROM ED FOR ADMIT AT APPROX 0945. PT AxOx4. COOPERATIVE WITH CARE BUT EXPRESSES ANXIETY PERIODICALLY. PT IS CALMED QUICKLY WITH VERBAL SUPPORT AND DEEP BREATHING. PT STATES HE USES O2 AT HOME PRN FOR ANXIETY. PT STARTED STRESS TEST TODAY. WILL BE NPO AT MIDNIGHT FOR PART 2 OF STRESS TEST TOMORROW AM. PT IS ON TELE RUNNING A FIB. BP SOFT THIS AFTERNOON. PM LASIX HELD. PT DENIED CP T/O THIS SHIFT. MEDS RECONCILED WITH CAREGIVER, TABITHA LINARES, OVER THE PHONE. PT GAVE VERBAL PERMISSION TO DISCUSS CARE WITH HIS CAREGIVER. PT IS CURRENTLY RESTING IN BED WITH CALL LIGHT IN REACH. DENIES ANY NEEDS AT THIS TIME.
[2023-06-18 20:27] VITALS: BP 77/62
[2023-06-18 20:43] VITALS: BP 92/62
[2023-06-18 22:23] VITALS: BP 95/72
[2023-06-19 03:05] VITALS: BP 89/65
--- NOTE | 2023-06-19 03:18 | NUR ---
1582 TWO REPORTED RUNS OF V-TACH. DR HARRIS CALLED AND ORDERED EKG. 12-LEAD UNREMARKABLE. PT DENIES CX PAIN/ PRESSURE OR INCREASED SOB. TELE STRIPS AND EKG IN CHART.
--- NOTE | 2023-06-19 04:24 | NUR ---
SUMMARY PT HAS DENIED CX PAIN OR PRESSURE. PT REPORTS FATIGUE. PT STATES HE USES O2 AT HOME PRN. PT HAS O2 VIA NC @ 2LPM. PT SPO2 >90%. PT HAS HAD SOFT BP'S THROUGHOUT SHIFT. PT STANDS TO USE URINAL AND HAS NOT BEEN SYMPTOMATIC. PT DENIES DIZZINESS OR LIGHTHEADEDNESS WHEN STANDING. PT DID HAVE SOME V TACH AND WAS EVALUATED. PT EHG UNREMAKABLE AND DR HARRIS AWARE. PT NOT SYMPTOMATIC. PT HAS SLEPT THROUGHOUT SHIFT. PT PUTS OUT SCANT AMOUNTS OF URINE PER VOID. BLADDER SCAN SHOWED ONLY 260 ML, PT DENIES SUPRAPUBIC DISCOMFORT. PT EATING AND DRINKING OK. CALL LIGHT IN REACH. BED ALARM ON.
[2023-06-19 07:23] VITALS: BP 111/87
[2023-06-19 07:23] LABS: BASOPHILS ABSOLUTE AUTO 0.07 K/mm3 (0.00-0.23); BASOPHILS PERCENT AUTO 1 % (0-2); EOSINOPHILS ABSOLUTE AUTO 0.17 K/mm3 (0.00-0.68); EOSINOPHILS PERCENT AUTO 3 % (0-6); Hematocrit 47.6 % (37.0-53.0); Hemoglobin 15.8 g/dL (13.5-17.5); IMMATURE GRAN ABSOLUTE AUTO 0.02 K/mm3 (0.00-0.10); IMMATURE GRAN PERCENT AUTO 0 % (0-1); LYMPHOCYTES ABSOLUTE AUTO 1.34 K/mm3 (0.84-5.20); LYMPHOCYTES PERCENT AUTO 21 % (21-46); MONOCYTES ABSOLUTE AUTO 0.92 K/mm3 (0.16-1.47); MONOCYTES PERCENT AUTO 14 % (4-13); Mean Corpuscular HGB 31.1 pg (26.0-34.0); Mean Corpuscular HGB Conc 33.2 g/dL (31.5-36.5); Mean Corpuscular Volume 94 fL (80-100); Mean Platelet Volume 10.9 fL (9.1-12.4); NEUTROPHILS ABSOLUTE AUTO 3.94 K/mm3 (1.96-9.15); NEUTROPHILS PERCENT AUTO 61 % (41-73); Platelet Count 137 K/mm3 (150-400); RDW Coefficient Variation 13.9 % (11.7-14.2); RDW Standard Deviation 47.8 fL (35.1-46.3); Red Blood Cell Count 5.08 M/mm3 (4.30-5.90); White Blood Cell Count 6.46 K/mm3 (4.00-11.30)
[2023-06-19 07:54] LABS: Albumin, Blood 3.1 g/dL (3.4-5.0); Albumin/Globulin Ratio 0.8 (0.8-1.8); Bilirubin, Total 0.5 mg/dL (0.1-1.0); Bun/Creatinine Ratio 19.7 (12.0-20.0); Calcium, Blood 8.7 mg/dL (8.5-10.1); Creatinine, Blood 1.57 mg/dL (0.60-1.20); Potassium, Blood 4.6 mmol/L (3.5-5.5); Total Protein, Blood 7.1 g/dL (6.4-8.2)
--- NOTE | 2023-06-19 14:38 | NUR ---
Pt. is awake and welcomes my visit. Pt. is pleasant and this arabic professor has seen the pt. on several previous hospitalizations. Faciliate a life review and Pt. verbalizes an aticipated discharge home later today. Listen with interest and empathy. Considered matters of luis alberto and belief. Prayed with Pt. Pt. verbalized gratitude for the spiritual care visit.
--- NOTE | 2023-06-19 17:58 | NUR ---
Patient completed stress test today. MD said test WNL and patient ready for discharge. Reviewed discharge teaching, patient verbailzed understanding. Vitals stable. Pt DC home today.
[2023-06-23] MEDS ORDERED: ENTRESTO 24 MG1 EACH PO (19:44)
[2023-06-23] MEDS ORDERED: HYDHCL25 PO (19:45)
== END 2023-06-19 15:50 | disposition home or self-care (01) ==
LOC: ER 02:41 → ERHOLD 02:42 → MEDS 09:50
PROVIDERS: Emergency Medicine; ADMIT Internal Medicine
DX: R07.89 Other chest pain (principal); I25.10 Atherosclerotic heart disease of native coronary artery without angina pectoris; I50.22 Chronic systolic (congestive) heart failure; I48.91 Unspecified atrial fibrillation
CPT/HCPCS: 36415; 71045; 78452; 80053; 82947; 83880; 84484; 85025; 93005; 93010; 93017; 96360; 96361; 96372; 99285-25; A9270; A9500; G0378; J0280; J1650; J1940; J2785; J7030